=== PATIENT | male | born 1970 | race Caucasian/White ===

== ENCOUNTER 2017-04-26 17:37 | Emergency (ER) | payer MEDICAID ==
[~2017-04-26] VITALS: Ht 182.9 cm; Wt 104.3 kg
[2017-04-26] MEDS ORDERED: NOMEDS XX (17:48)
--- NOTE | 2017-04-26 17:55 | Emergency Room Report ---
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 N Clinical Suspician of Infection? N Mental Status: 1 - Regular (Normal Baseline) Sepsis Risk:Low Sepsis Risk Have you (or family members/close friends) recently traveled outside the [place]? N If Yes, where/when: Have you had exposure to infectious disease within the past month? TB? Other? Specify: 47-year-old white male two months status post hernia repair. He presented with 2 days history of RIGHT sided abdominal pain associated with diarrhea 5-10 times a day. He has nausea but no vomiting. The pain is radiating to the RIGHT upper thigh. He denies fever or chills or vomiting. He denies dysuria hematuria or frequency. The patient had history of chronic pain because of his knees and was being seen in the pain clinic. Source patient, RN notes reviewed, family Exam Limitations no limitations ALLERGIES Coded Allergies: No Known Allergies (04/26/17) Home Medications Reported Medications No Home Medications (NO HOME MEDICATIONS) 1 EACH XX ONCE History Medical History General More? No Immunization Hx Ped.Immunizations UTD Yes DT/Tetanus 1-4 Years Ago Surgical Hx Previous Surgery?Y RIGHT KNEE REPLACEMENT SHOULDER,LEFT HERNIA SURGERY Social History Smoking Hx Smoker: Current Every Day Smoker Tobacco: Yes Type Cigarettes Packs/day < 1 Pack Are you/the child exposed to second-hand smoke: Yes Review of Systems All Other Systems Reviewed and Negative Constitutional no symptoms reported Eyes no symptoms reported ENT no symptoms reported. Respiratory no symptoms reported Cardiovascular no symptoms reported Gastrointestinal denies see HPI Genitourinary no symptoms reported. Musculoskeletal no symptoms reported Skin no symptoms reported Psychiatric/Neurological no symptoms reported Physical Exam Vital Signs Vital Signs Date Time Temp Pulse Resp B/P Pulse O2 O2 Flow FiO2 Ox Delivery Rate 04/26 1852 18 04/26 174 98.9 89 18 / 99 - WBC >12,000 or <4,000 or 10% bands? 2 or more SIRS Criteria Met? B/P: MAP:114 Creatinine >2.0? UA output<0.5ml/kg/hr for 2 hrs? Platelet count >100,000? Lactate >2.0mmol/1? INR >1.2 or PTT > than 60 sec? Evidence of Organ Dysfunction? Provider documented clinical suspician of infection? N Sepsis Criteria Count: 0 Sepsis Risk: Low Sepsis Risk General Appearance normal appearance, WD/WN Eye Exam - bilateral eye normal exam, bilateral eye PERRL, bilateral eye EOMI Ear, Nose, Throat hearing grossly normal, normal ENT inspection Neck normal inspection, non-tender, supple, full range of motion Respiratory Status Yes: trachea midline, chest symmetrical, non tender chest. No: respiratory distress. Lung Sounds bilateral: normal breath sounds, lungs clear. Cardiovascular normal exam, regular rate/rhythm, no peripheral edema, no gallop, no JVD, no murmur, no rub, normal peripheral pulses Peripheral Pulses Pulses normal Yes Gastrointestinal normal bowel sounds, soft, rebound, tenderness, soft abdomen without quadrant tenderness and rebound tenderness positive bowel sounds. 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 No Results/Orders Laboratory Tests 04/26/17 1810: Sodium 141, Potassium 3.5, Chloride 105, Carbon Dioxide 30, BUN 8, Creatinine 1.0, Estimated Creat Clear 135, Estimated GFR (MDRD) 80, Glucose 84, Calcium 9.1 , Total Bilirubin 0.6, AST 8 L, ALT 17, Alkaline Phosphatase 69, Total Protein 7.2, Albumin 4.2, Globulin 3.0, Albumin/Globulin Ratio 1.4, Lipase 117, WBC 9.4, RBC 5.25, Hgb 17.1, Hct 50.3, MCV 96.0, RDW 12.8, Plt Count 212, MPV 9.6, Gran % 69.3, Gran # 6.5, Lymphocytes % 21.5, Monocytes % 5.6, Eosinophils % 2.9, Basophils % 0.7, Lymphocytes # 2.0, Monocytes # 0.5, Eosinophils # 0.3, Basophils # 0.1, PUBS MCHC 34.0, MCH 32.6 H Current Medication Orders Sig/Xuan Start time Last Medication Dose Route Stop Time Status Admin Dicyclomine HCl 10 MG ONCE ONE 04/26 1945 DC 04/26 PO 04/26 Dicyclomine HCl 0 .STK-MED ONE 04/26 1943 DC PO Sodium Chloride 1,000 ML .STK-MED ONE 04/26 1931 DC IV Morphine Sulfate 0 .STK-MED ONE 04/26 1929 DC .ROUTE Levofloxacin/Dextrose 100 ML .STK-MED ONE 04/26 1928 DC IV Levofloxacin/Dextrose 100 ML ONCE ONE 04/26 1915 CKDr 04/26 IV 04/26 Morphine Sulfate 2 MG [id number] PRN 04/26 1915 AC IV Iopamidol 75 ML ONCE ONE 04/26 1900 UNV 04/26 IV 04/26 1901 184 Sodium Chloride 10 ML ONCE ONE 04/26 1900 UNV 04/26 IV 04/26 190 184 Famotidine 0 .STK-MED ONE 04/26 1848 DC IV Ketorolac 0 .STK-MED ONE 04/26 1846 DC Tromethamine .ROUTE Ertapenem 0 .STK-MED ONE 04/26 1842 DC .ROUTE Sodium Chloride 100 ML .STK-MED ONE 04/26 1842 DC IV Ertapenem 1 GM ONCE ONE 04/26 1800 DC 04/26 Sodium Chloride 50 ML IV 04/26 182 185 Famotidine 20 MG ONCE ONE 04/26 1800 DC 04/26 IV 04/26 180 185 Ketorolac 30 MG ONCE ONE 04/26 1800 DC 04/26 Tromethamine IV 04/26 180 1852 Sodium Chloride 1,000 ML .Q1H1M 04/26 1800 DC 04/26 IV 04/26 190 193 Sodium Chloride 10 ML PRN PRN 04/26 1800 AC IV 04/27 175 Sodium Chloride 8 ML ONCE ONE 04/26 1800 DC 04/26 IV 04/26 180 193 Orders Procedure Date/time Status DIET-NOTHING BY MOUTH 04/[address] ABD W/RLQ PAIN REQ 04/26 1751 Active CULTURE, BLOOD 04/26 1750 Active LIPASE 04/26 1750 Complete LACTIC ACID 04/26 1750 Active DIARRHEA PANEL, PCR 04/26 1750 Active CBC WITH AUTO DIFF 04/26 1750 Complete CHEM 12 PROFILE 04/26 1750 Complete Departure Departure Time of Disposition 1752 Disposition DC Home or Self Care(routine) Clinical Impression Primary Impression: Diarrhea Secondary Impressions: Abdominal pain of unknown etiology, Ventral hernia without obstruction or gangrene Condition STABLE Referrals ELMA FINE,BRANDON Terrell Additional Instructions The patient remianed stable , and daughter on the bed side playing games or watching shows , seems very dissociated from him. I discussed with the patient his normal lab results, also CT scan shows ventral hernia with no obstruction or gangrene. He has no acute appendicitis. He said that the Toradol did not help his pain and did not provide a stool sample, he will be given a container to obtain a sample and bring it back to the lab. I called the surgeon dr Pablo who will pass his name to Dr Conte for a recehc in AM. The patient receiving IV fluids and tolerared po inatke, will ask incoming Dr Uriostegui to re evaluate prior to discharge. Dr. Villalobos I discussed with the patietn that I will start him on abx and bentyl for the cramps and he will return if he worsen or vomiting developes. Him and his verbalized understanding. Dr. Villalobos Discharge Counseling Counseled pt/family regarding diagnosis, test results, medications/RX Prescriptions Current Visit Scripts Metronidazole (Flagyl) 500 MG PO Q8 #21 TAB Ciprofloxacin HCl (Cipro 500MG TAB) 500 MG PO BID #14 TAB Dicyclomine Hcl (Bentyl 10MG) 10 MG PO Q8HP PRN cramps #21 CAP ED Critical Care Critical Care No If Critical Care minutes are documented, the time involved in the performance of seperately reportable procedures was not counted toward critical care time documented. I directly delivered medical care to this critically ill and/or injured patient. Timely evaluation and treatment was necessary to address the significant organ system(s) dysfunction present in this patient.
[2017-04-26 18:21] LABS: HEMOGLOBIN 17.1 g/dL (14.1-18.0); LYMPH % 21.5 % (10-50)
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
[2017-04-26] MEDS ORDERED: FLAGYL500 M1 PO (19:11)
[2017-04-26] MEDS ORDERED: BENTYL10 MG PO (19:11)
[2017-04-26] MEDS ORDERED: CIPRO 500MG TA500 MG PO (19:11)
[2017-04-26 20:43] VITALS: BP 141/97
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
--- OUTSIDE RECORDS SUMMARY | 2017-05-01 21:39 | External Medical Summary Rpt ---
Author Author [facility] Address Unknown Phone Unavailable Care Team Providers Care Director Global Strategic Publisher Sales Name Role Phone Nahomy WAITE PCP [phone] Encounter [facility] [id number] Date(s): 12/30/16 - 12/30/16 [facility] [address] [id number]- [facility] Discharge Diagnosis: Cough Discharge Diagnosis: Abdominal pain Discharge Diagnosis: Abdominal wall hernia Discharge Diagnosis: Wheezing Discharge Disposition: OP Self Care or Home Attending Physician: BONNIE CARBONE MD-EMR Admitting Physician: BONNIE CARBONE MD-EMR Referring Physician: ZELDA, UNKNOWN Reason for Visit COUGH\STOMACH PAIN Vital Signs Most recent 1 2 3 to oldest [Reference Range]: Temperature Oral Source (12/30/16 5:33 PM) Temperature Fahrenheit Fahrenheit Mode (12/30/16 6:58 PM) (12/30/16 5:33 PM) Temperature, 98.7 Deg F Fahrenheit (12/30/16 5:33 PM) [96.8-99.7 Deg F] Clinical 37.1 Deg C Temperature, (12/30/16 5:33 PM) C Peripheral 79 bpm 83 bpm 116 bpm Pulse Rate (12/30/16 8:40 PM) (12/30/16 6:58 PM) *HI* [60-100 bpm] (12/30/16 5:33 PM) Heart Rate 78 bpm Monitored (12/30/16 8:24 PM) [60-100 bpm] Respiratory 16 Breaths/Min 20 Breaths/Min Rate [14-20 (12/30/16 6:58 PM) (12/30/16 5:33 PM) Breaths/Min] Blood 129/96 mmHg 154/95 mmHg 138/97 mmHg Pressure (12/30/16 8:40 PM) *HI* (12/30/16 6:58 PM) [90-140/60-9 (12/30/16 8:24 PM) 0 mmHg] Oxygen 94 % 94 % 98 % Saturation (12/30/16 8:40 PM) (12/30/16 8:24 PM) (12/30/16 6:58 PM) [94-100 %] Oxygen Room air Room air Room air Therapy Mode (12/30/16 8:24 PM) (12/30/16 6:58 PM) (12/30/16 5:33 PM) Height Stated Source (12/30/16 5:33 PM) Height Entry [place] Format (12/30/16 5:33 PM) Height/Lengt 6 ft h, CRO[place] (12/30/16 5:33 PM) (ft) Height/Lengt 0 Inch h [place] (12/30/16 5:33 PM) CLINICALHEIG 182.88 cm HT (12/30/16 5:33 PM) Weight Estimated Source, ED (12/30/16 5:33 PM) [place] Body 77 kg Weight (12/30/16 5:33 PM) Problem List Condition Effective Status Health Informant Dates Status HTN Active (hypertensio n)(Confirmed ) Hernia of Active abdominal cavity(Confi rmed) Depression(C Active onfirmed) Allergies, Adverse Reactions, Alerts No Known Medication Allergies Medications acetaminophen-hydrocodone ([place] 5 mg-325 mg oral tablet)1 Tab, Oral, Every 4 Hours, 3 Day(s), As Needed, for pain, Refills: 0Ordering provider: GUSTAVO ARELLANO NP-FAM benazepril-hydrochlorothiazide (benazepril-hydrochlorothiazide 20 mg-25 mg oral tablet)1 Tab, Oral, Every Day, Refills: 0 levofloxacin (Levaquin 750 mg oral tablet)1 Tab, Oral, Interval Every 24 Hours, 7 Day(s), Refills: 0Ordering provider: GUSTAVO ARELLANO NP-FAM methylPREDNISolone (Medrol Dosepak 4 mg oral tablet)1 Packet, Oral, Every Day, as directed on package labeling, 6 Day(s), Refills: 0Ordering provider: GUSTAVO ARELLANO NP-FAM Results GENERAL CHEMISTRY Most recent 1 to oldest [Reference Range]: Sodium Level 137 mmol/L [136-144 (12/30/16 5:58 PM) mmol/L] Potassium 2.8 mmol/L 1 Level *CRIT* [3.7-5.0 (12/30/16 5:58 PM) mmol/L] Chloride 96 mmol/L Level *LOW* [98-107 (12/30/16 5:58 PM) mmol/L] Carbon 29.0 mMole/Liter Dioxide (12/30/16 5:58 PM) Level [24.0-33.0 mMole/Liter] Anion Gap 12.0 [2.0-11.0] *HI* (12/30/16 5:58 PM) Glucose 129 mg/dL Level *HI* [70-110 (12/30/16 5:58 PM) mg/dL] Blood Urea 18 mg/dL Nitrogen (12/30/16 5:58 PM) [6-20 mg/dL] Creatinine 1.10 mg/dL Level (12/30/16 5:58 PM) [0.64-1.27 mg/dL] eGFR 87 mL/min/1.73m2 [>=60 (12/30/16 5:58 PM) mL/min/1.73m 2] eGFR 72 mL/min/1.73m2 NonAfrican (12/30/16 5:58 PM) [>=60 mL/min/1.73m 2] Bun/Creatini 16 ne *NA* (12/30/16 5:58 PM) Calcium 9.3 mg/dL Level (12/30/16 5:58 PM) [8.9-10.3 mg/dL] Protein 7.8 Gram/dL Total *HI* [5.9-7.5 (12/30/16 5:58 PM) Gram/dL] Albumin 5.0 Gram/dL Level *HI* [3.6-4.7 (12/30/16 5:58 PM) Gram/dL] A/G Ratio 1.8 [1.0-1.8] (12/30/16 5:58 PM) Bilirubin 1.2 mg/dL Total (12/30/16 5:58 PM) [0.4-1.3 mg/dL] Alk Phos 78 Units/Liter [34-106 (12/30/16 5:58 PM) Units/Liter] AST [12-38 26 Units/Liter Units/Liter] (12/30/16 5:58 PM) ALT [8-60 22 Units/Liter Units/Liter] (12/30/16 5:58 PM) Lipase Level 16 Units/Liter [10-50 (12/30/16 5:58 PM) Units/Liter] Lactic Acid 2.4 mmol/L Level *HI* [0.5-2.2 (12/30/16 5:58 PM) mmol/L] 1Result Comment: CALLED TO:lashanda kraus DATE/TIME CALLED:12/30/2016 18:44:04 EDT READ BACK AND VERIFIED:yes CALLED BY: PhanARDIAC SPECIFIC MARKERS Most recent 1 to oldest [Reference Range]: Troponin I 0.01 ng/mL [0.00-0.03 (12/30/16 6:10 PM) ng/mL] HEMATOLOGY Most recent 1 to oldest [Reference Range]: WBC 11.6 10x3/mm3 [4.1-10.8 *HI* 10x3/mm3] (12/30/16 5:58 PM) RBC 5.45 Million/mm3 [4.37-5.74 (12/30/16 5:58 PM) Million/mm3] Hgb 18.2 Gram/dL 1 [13.7-17.5 *CRIT* Gram/dL] (12/30/16 5:58 PM) Hct 51.1 % [40.1-51.0 *HI* %] (12/30/16 5:58 PM) MCV 93.6 fL [79.0-92.2 *HI* fL] (12/30/16 5:58 PM) MCH 33.3 pg [25.6-32.2 *HI* pg] (12/30/16 5:58 PM) MCHC 35.6 Gram/dL [32.3-36.5 (12/30/16 5:58 PM) Gram/dL] Platelet 197 10x3/mm3 Count (12/30/16 5:58 PM) [140-370 10x3/mm3] MPV 10.6 fL [8.7-12.0 (12/30/16 5:58 PM) fL] RDW 13.5 % [11.7-15.2 (12/30/16 5:58 PM) %] 1Result Comment: CALLED TO:lashanda kraus DATE/TIME CALLED:12/30/2016 18:42:27 EDT READ BACK AND VERIFIED:yes CALLED BY: Dodie Most recent 1 to oldest [Reference Range]: Urine Type. U CleanCatch *NA* (12/30/16 5:58 PM) Urine Color Yellow *NA* (12/30/16 5:58 PM) Urine Clear Appearance (12/30/16 5:58 PM) [Clear] Urine 1.020 Specific *NA* [place] (12/30/16 5:58 PM) [1.003-1.030 ] Urine pH 6.0 Dipstick (12/30/16 5:58 PM) [5.0-8.0] Urine Negative Leukocyte (12/30/16 5:58 PM) Esterase [Negative] Urine Negative Nitrite (12/30/16 5:58 PM) [Negative] Urine Negative Protein (12/30/16 5:58 PM) Dipstick [Negative] Urine Negative Glucose (12/30/16 5:58 PM) Dipstick [Negative] Urine Negative Ketones (12/30/16 5:58 PM) Dipstick [Negative] Urine 0.2 EU/dL Urobilinogen (12/30/16 5:58 PM) Dipstick [0.1-1.0 EU/dL] Urine Negative Bilirubin (12/30/16 5:58 PM) Dipstick [Negative] Urine Blood Negative Dipstick (12/30/16 5:58 PM) [Negative] Ur RBC None /HPF (12/30/16 5:58 PM) Ur WBC None /HPF (12/30/16 5:58 PM) Ur Bacteria None Seen (12/30/16 5:58 PM) Ur None Epithelial (12/30/16 5:58 PM) Cells TOXICOLOGY Most recent 1 to oldest [Reference Range]: UDS Amp Negative [Negative] (12/30/16 5:58 PM) UDS Kim Negative [Negative] (12/30/16 5:58 PM) UDS Benzo Negative [Negative] (12/30/16 5:58 PM) UDS Christel Negative [Negative] (12/30/16 5:58 PM) UDS Meth Negative [Negative] (12/30/16 5:58 PM) UDS Opi Positive [Negative] *ABN* (12/30/16 5:58 PM) UDS TCA Negative [Negative] (12/30/16 5:58 PM) UDS THC Negative [Negative] (12/30/16 5:58 PM) Immunizations No data available for this section Procedures No data available for this section Social History Social History Response Type Smoking Status Current every day smoker; Years of Tobacco Use 34; Packs/Tins Daily 0.5 Assessment and Plan No data available for this section Hospital Discharge Instructions Patient EducationAbdominal Pain, Adult
--- OUTSIDE RECORDS SUMMARY | 2017-05-01 21:39 | External Medical Summary Rpt ---
Author Author [facility] Address Unknown Phone Unavailable Care Team Providers Care Buffer Chrome Name Role Phone Nahomy WAITE PCP [phone] Encounter [facility] [id number] Date(s): 12/30/16 - 12/30/16 [facility] [address] [id number]- [facility] Discharge Diagnosis: Cough Discharge Diagnosis: Abdominal [...] Stated Source (12/30/16 5:33 PM) Height Entry [place] Format (12/30/16 5:33 PM) Height/Lengt 6 ft h, GUAMANIAN (12/30/16 5:33 PM) (ft) Height/Lengt 0 Inch h GUAMANIAN (12/30/16 5:33 PM) CLINICALHEIG 182.88 cm HT (12/30/16 5:33 PM) Weight Estimated Source, ED (12/30/16 5:33 PM) [place] Body 77 kg Weight (12/30/16 5:33 PM) Problem List Condition Effective Status Health Informant Dates Status HTN Active (hypertensio n)(Confirmed ) Hernia of Active abdominal cavity(Confi rmed) Depression(C Active onfirmed) Allergies, Adverse Reactions, Alerts No Known Medication Allergies Medications acetaminophen-hydrocodone ([place] 5 mg-325 mg oral tablet)1 Tab, Oral, [...] 5:58 PM) [Clear] Urine 1.020 Specific *NA* [place] (12/30/16 5:58 PM) [1.003-1.030 ] Urine pH [...]
--- OUTSIDE RECORDS SUMMARY | 2017-05-01 21:39 | External Medical Summary Rpt ---
Author Author [facility] Address Unknown Phone Unavailable Care Team Providers Care Biofuels Product Manager Name Role Phone Nahomy WAITE PCP [phone] Encounter [facility] [id number] Date(s): 08/27/16 - 08/27/16 [facility] [address], [address]- Discharge Disposition: OP Self Care or Home Attending Physician: CHANNING WAITE -INT Admitting Physician: CHANNING WAITE -INT Referring Physician: CHANNING WAITE -INT Reason for Visit VENTRAL HERNIA WITHOUT OBSTRUCTION OR GANGRENE Vital Signs No data available for this section Problem List No data available for this section Allergies, Adverse Reactions, Alerts No data available for this section Medications No data available for this section Results No data available for this section Immunizations No data available for this section Procedures No data available for this section Social History No data available for this section Assessment and Plan No data available for this section Hospital Discharge Instructions No data available for this section
--- OUTSIDE RECORDS SUMMARY | 2017-05-01 21:39 | External Medical Summary Rpt ---
Author Author [facility] Address Unknown Phone Unavailable Care Team Providers Care Client Architect Name Role Phone Nahomy WAITE PCP [phone] Encounter [facility] [id number] Date(s): 10/06/16 - 10/07/16 [facility] [address] [place] [address]- [facility] Discharge Disposition: Admitted to Hospital 72HRS Attending [...] Stated Source (10/06/16 7:15 PM) Height Entry [place] Format (10/06/16 7:15 PM) Height/Lengt 6 ft h, [place] (10/06/16 7:15 PM) (ft) Height/Lengt 0 Inch h [place] (10/06/16 7:15 PM) CLINICALHEIG 182.88 cm HT (10/06/16 7:15 PM) Weight Standing scale Source, ED (10/06/16 7:15 PM) Weight Entry [place] Format (10/06/16 7:15 PM) Weight 225 lb [place] lb (10/06/16 7:15 PM) CLINICALWEIG 102.27 kg HT (10/06/16 7:15 PM) Body Surface 2.24 m2 Area (BSA) (10/06/16 7:15 PM) Body Mass 30.6 kg/m2 Index (BMI) *HI* [19.0-24.0 (10/06/16 7:15 PM) kg/m2] [place] Body 77 kg Weight (10/06/16 7:15 PM) [...] 7:35 PM) [Clear] Urine >=1.030 Specific *NA* [place] (10/06/16 7:35 PM) [1.003-1.030 ] Urine pH [...] wound Inguinal hernia1 knee surgery2 Shoulder reconstruction3 [id number] on right, X4 on [id number] Social History Social History Response Type Smoking Status Current every day smoker Assessment and Plan No data available for this section Hospital Discharge Instructions No data available for this section
--- OUTSIDE RECORDS SUMMARY | 2017-05-01 21:39 | External Medical Summary Rpt ---
Author Author [facility] Address Unknown Phone Unavailable Care Team Providers Care Brass Pourer Name Role Phone Nahomy WAITE PCP [phone] Encounter [facility] [id number] Date(s): 08/27/16 - 08/27/16 [facility] [address] [facility], [address]- Discharge Disposition: OP Self Care or Home [...]
--- OUTSIDE RECORDS SUMMARY | 2017-05-01 21:40 | External Medical Summary Rpt ---
Author Author [facility] Address Unknown Phone Unavailable Care Team Providers Care Psychiatric Clinician Name Role Phone Nahomy WAITE PCP [phone] Encounter [facility] [id number] Date(s): 01/18/17 - 01/18/17 [facility] [address] [place] [address]- [facility] Discharge Diagnosis: Chest pain Discharge Disposition: Admitted to Hospital 72HRS Attending Physician: CJ VELIZ, -EMR Admitting Physician: CJ VELIZ, -EMR Referring Physician: STEPHANIE NDIAYE Reason for Visit CHEST/BACK/SHOULDER PAIN Vital Signs Most recent 1 2 3 to oldest [Reference Range]: Temperature Tympanic Source (01/18/17 11:47 AM) Temperature Fahrenheit Mode (01/18/17 11:47 AM) Temperature, 98.3 Deg F Fahrenheit (01/18/17 11:47 AM) [96.8-99.7 Deg F] Clinical 36.8 Deg C Temperature, (01/18/17 11:47 AM) C Peripheral 68 bpm 115 bpm Pulse Rate (01/18/17 5:13 PM) *HI* [60-100 bpm] (01/18/17 11:47 AM) Heart Rate 69 bpm 69 bpm 70 bpm Monitored (01/18/17 4:21 PM) (01/18/17 3:52 PM) (01/18/17 3:05 PM) [60-100 bpm] Respiratory 16 Breaths/Min 16 Breaths/Min 18 Breaths/Min Rate [14-20 (01/18/17 5:13 PM) (01/18/17 1:25 PM) (01/18/17 12:33 PM) Breaths/Min] Blood 123/88 mmHg 122/78 mmHg 126/86 mmHg Pressure (01/18/17 5:13 PM) (01/18/17 4:21 PM) (01/18/17 3:52 PM) [90-140/60-9 0 mmHg] Mean 93 mmHg 99 mmHg 94 mmHg Arterial (01/18/17 4:21 PM) (01/18/17 3:52 PM) (01/18/17 3:05 PM) Pressure (MAP) Mean 90 96 89 Arterial (01/18/17 4:21 PM) (01/18/17 3:52 PM) (01/18/17 3:05 PM) Pressure (MAP)-BMDI Oxygen 100 % 99 % 99 % Saturation (01/18/17 5:13 PM) (01/18/17 4:21 PM) (01/18/17 3:52 PM) [94-100 %] Oxygen Nasal cannula Nasal cannula Nasal cannula Therapy Mode (01/18/17 5:13 PM) (01/18/17 4:21 PM) (01/18/17 3:52 PM) Oxygen Flow 2 Liter/Min 2 Liter/Min 2 Liter/Min Rate (01/18/17 5:13 PM) (01/18/17 4:21 PM) (01/18/17 3:52 PM) Height Stated Source (01/18/17 11:47 AM) Height Entry [place] Format (01/18/17 11:47 AM) Height/Lengt 6 ft h, [place] (01/18/17 11:47 AM) (ft) Height/Lengt 0 Inch h [place] (01/18/17 11:47 AM) CLINICALHEIG 182.88 cm HT (01/18/17 11:47 AM) Weight Estimated Source, ED (01/18/17 11:47 AM) [place] Body 77 kg Weight (01/18/17 11:47 AM) Problem List Condition Effective Status Health Informant Dates Status HTN Active (hypertensio n)(Confirmed ) Hernia of Active abdominal cavity(Confi rmed) Depression(C Active onfirmed) Allergies, Adverse Reactions, Alerts No Known Medication Allergies Medications benazepril-hydroCHLOROthiazide (benazepril-hydrochlorothiazide 20 mg-25 mg oral tablet)1 Tab, Oral, Every Day, Refills: 0 benazepril-hydroCHLOROthiazide (benazepril-hydroCHLOROthiazide 20 mg-25 mg oral tablet)1 Tab, Oral, Every Day, Refills: 0 Results GENERAL CHEMISTRY Most recent 1 2 to oldest [Reference Range]: Sodium Level 141 mmol/L [136-144 (01/18/17 11:49 AM) mmol/L] Potassium 3.5 mmol/L Level *LOW* [3.7-5.0 (01/18/17 11:49 AM) mmol/L] Chloride 102 mmol/L Level (01/18/17 11:49 AM) [98-107 mmol/L] Carbon 29.0 mMole/Liter Dioxide (01/18/17 11:49 AM) Level [24.0-33.0 mMole/Liter] Anion Gap 10.0 [2.0-11.0] (01/18/17 11:49 AM) Glucose 131 mg/dL Level *HI* [70-110 (01/18/17 11:49 AM) mg/dL] Blood Urea 13 mg/dL Nitrogen (01/18/17 11:49 AM) [6-20 mg/dL] Creatinine 1.06 mg/dL Level (01/18/17 11:49 AM) [0.64-1.27 mg/dL] eGFR 91 mL/min/1.73m2 [>=60 (01/18/17 11:49 AM) mL/min/1.73m 2] eGFR 75 mL/min/1.73m2 NonAfrican (01/18/17 11:49 AM) [>=60 mL/min/1.73m 2] Bun/Creatini 12 ne *NA* (01/18/17 11:49 AM) Calcium 9.1 mg/dL Level (01/18/17 11:49 AM) [8.9-10.3 mg/dL] Protein 7.4 Gram/dL Total (01/18/17 11:49 AM) [5.9-7.5 Gram/dL] Albumin 4.6 Gram/dL Level (01/18/17 11:49 AM) [3.6-4.7 Gram/dL] A/G Ratio 1.6 [1.0-1.8] (01/18/17 11:49 AM) Bilirubin 1.0 mg/dL Total (01/18/17 11:49 AM) [0.4-1.3 mg/dL] Alk Phos 71 Units/Liter [34-106 (01/18/17 11:49 AM) Units/Liter] AST [12-38 21 Units/Liter Units/Liter] (01/18/17 11:49 AM) ALT [8-60 26 Units/Liter Units/Liter] (01/18/17 11:49 AM) CARDIAC SPECIFIC MARKERS Most recent 1 2 to oldest [Reference Range]: Troponin I <0.01 ng/mL <0.01 ng/mL [0.00-0.03 (01/18/17 1:45 PM) (01/18/17 11:49 AM) ng/mL] BNP [0-99 64 pg/mL pg/mL] (01/18/17 11:49 AM) HEMATOLOGY Most recent 1 2 to oldest [Reference Range]: WBC 9.4 10x3/mm3 [4.1-10.8 (01/18/17 11:49 AM) 10x3/mm3] RBC 5.45 Million/mm3 [4.37-5.74 (01/18/17 11:49 AM) Million/mm3] Hgb 17.7 Gram/dL [13.7-17.5 *HI* Gram/dL] (01/18/17 11:49 AM) Hct 50.6 % [40.1-51.0 (01/18/17 11:49 AM) %] MCV 92.8 fL [79.0-92.2 *HI* fL] (01/18/17 11:49 AM) MCH 32.5 pg [25.6-32.2 *HI* pg] (01/18/17 11:49 AM) MCHC 35.0 Gram/dL [32.3-36.5 (01/18/17 11:49 AM) Gram/dL] Platelet 208 10x3/mm3 Count (01/18/17 11:49 AM) [140-370 10x3/mm3] MPV 9.9 fL [8.7-12.0 (01/18/17 11:49 AM) fL] RDW 13.5 % [11.7-15.2 (01/18/17 11:49 AM) %] Neut % 65.6 % [34.0-69.5 (01/18/17 11:49 AM) %] Neut # 6.20 x10(3)/uL [1.70-6.00 *HI* x10(3)/uL] (01/18/17 11:49 AM) Lymph % 23.7 % [20.0-53.0 (01/18/17 11:49 AM) %] Lymph # 2.2 x10(3)/uL [0.8-3.2 (01/18/17 11:49 AM) x10(3)/uL] [place] % 7.7 % [5.0-12.5 %] (01/18/17 11:49 AM) [place] # 0.7 x10(3)/uL [0.2-1.4 (01/18/17 11:49 AM) x10(3)/uL] Eos % 1.9 % [0.7-6.0 %] (01/18/17 11:49 AM) Eos # 0.2 x10(3)/uL [0.0-0.6 (01/18/17 11:49 AM) x10(3)/uL] Baso % 1.1 % [0.0-3.0 %] (01/18/17 11:49 AM) Baso # 0.1 x10(3)/uL [0.0-0.3 (01/18/17 11:49 AM) x10(3)/uL] COAGULATION Most recent 1 2 to oldest [Reference Range]: PT [9.4-12.2 11.0 Second(s) Second(s)] (01/18/17 11:49 AM) INR 0.96 INR *NA* (01/18/17 11:49 AM) PTT 30.1 Second(s) [23.1-34.6 (01/18/17 11:49 AM) Second(s)] D Dimer 211 ng/mL Quant (01/18/17 11:49 AM) [21-230 ng/mL] Immunizations No data available for this section Procedures No data available for this section Social History Social History Response Type Smoking Status Current every day smoker; Years of Tobacco Use 34; Packs/Tins Daily 0.5 Assessment and Plan No data available for this section Hospital Discharge Instructions No data available for this section
--- OUTSIDE RECORDS SUMMARY | 2017-05-01 21:40 | External Medical Summary Rpt ---
Author Author [facility] Address Unknown Phone Unavailable Care Team Providers Care Elastic Yarn Twister Helper Name Role Phone Nahomy WAITE PCP [phone] Encounter [facility] [id number] Date(s): 01/18/17 - 01/18/17 [facility] [address] [place] [address]- [facility] Discharge Diagnosis: Chest [...] Stated Source (01/18/17 11:47 AM) Height Entry [place] Format (01/18/17 11:47 AM) Height/Lengt 6 ft h, [place] (01/18/17 11:47 AM) (ft) Height/Lengt 0 Inch h [place] (01/18/17 11:47 AM) CLINICALHEIG 182.88 cm HT (01/18/17 11:47 AM) Weight Estimated Source, ED (01/18/17 11:47 AM) [place] Body 77 kg Weight (01/18/17 11:47 AM) [...] 2.2 x10(3)/uL [0.8-3.2 (01/18/17 11:49 AM) x10(3)/uL] [place] % 7.7 % [5.0-12.5 %] (01/18/17 11:49 AM) [place] # 0.7 x10(3)/uL [0.2-1.4 (01/18/17 11:49 AM) [...]
--- OUTSIDE RECORDS SUMMARY | 2017-05-01 21:40 | External Medical Summary Rpt ---
Author Author [facility] Address Unknown Phone Unavailable Care Team Providers Care Road Machine Runner Name Role Phone Nahomy WAITE PCP [phone] Encounter [facility] [id number] Date(s): 03/03/17 - 03/04/17 [facility] [address] [place] [address]- [facility] Discharge Diagnosis: Abdominal pain Discharge Disposition: Admitted to Hospital 72HRS Attending Physician: BONNIE CARBONE MD-EMR Admitting Physician: DAMARI HUMPHREY, -EMR Referring Physician: ZELDA, UNKNOWN Reason for Visit CHEST PAIN HIGH BLOOD PRESSURE Vital Signs Most recent 1 2 3 to oldest [Reference Range]: Temperature Tympanic Source (03/03/17 5:16 PM) Temperature Fahrenheit Mode (03/03/17 5:16 PM) Temperature, 98 Deg F Fahrenheit (03/03/17 5:16 PM) [96.8-99.7 Deg F] Clinical 36.7 Deg C Temperature, (03/03/17 5:16 PM) C Peripheral 94 bpm Pulse Rate (03/03/17 5:16 PM) [60-100 bpm] Heart Rate 76 bpm (03/04/17 65 bpm (03/03/17 70 bpm (03/03/17 Monitored 12:16 AM) 11:41 PM) 11:13 PM) [60-100 bpm] Respiratory 15 Breaths/Min 19 Breaths/Min 16 Breaths/Min Rate [14-20 (03/03/17 8:52 PM) (03/03/17 7:53 PM) (03/03/17 5:34 PM) Breaths/Min] Blood 124/86 mmHg 134/87 mmHg 141/93 mmHg Pressure (03/04/17 12:16 (03/03/17 11:41 *HI*(03/03/17 [90-140/60-9 AM) PM) 11:13 PM) 0 mmHg] Mean 99 mmHg (03/04/17 103 mmHg (03/03/17 109 mmHg (03/03/17 Arterial 12:16 AM) 11:41 PM) 11:13 PM) Pressure (MAP) Mean 96 (03/04/17 12:16 98 (03/03/17 11:41 106 (03/03/17 Arterial AM) PM) 11:13 PM) Pressure (MAP)-BMDI Oxygen 100 % (03/04/17 100 % (03/03/17 100 % (03/03/17 Saturation 12:16 AM) 11:13 PM) 10:02 PM) [94-100 %] Oxygen Room air (03/04/17 Room air (03/03/17 Room air (03/03/17 Therapy Mode 12:16 AM) 11:13 PM) 10:02 PM) Oxygen Flow 2 Liter/Min Rate (03/03/17 6:08 PM) Height Stated Source (03/03/17 5:16 PM) Height Entry [place] Format (03/03/17 5:16 PM) Height/Lengt 6 ft h, [place] (03/03/17 5:16 PM) (ft) CLINICALHEIG 182.88 cm HT (03/03/17 5:16 PM) Weight Stated Source, ED (03/03/17 5:16 PM) [place] Body 76.59 kg Weight (03/03/17 5:16 PM) Problem List Condition Effective Status Health Informant Dates Status Arthritis(Co Active patient nfirmed) HTN Active (hypertensio n)(Confirmed ) Hernia of Active abdominal cavity(Confi rmed) Migraine(Con Active firmed) Depression(C Active onfirmed) Allergies, Adverse Reactions, Alerts No Known Medication Allergies Medications benazepril-hydroCHLOROthiazide (benazepril-hydroCHLOROthiazide 20 mg-25 mg oral tablet)1 Tab, Oral, Every Day, Refills: 0 Results GENERAL CHEMISTRY Most recent 1 2 to oldest [Reference Range]: Sodium Level 137 mmol/L [136-144 (03/03/17 5:34 PM) mmol/L] Potassium 4.1 mmol/L Level (03/03/17 5:34 PM) [3.7-5.0 mmol/L] Chloride 101 mmol/L Level (03/03/17 5:34 PM) [98-107 mmol/L] Carbon 26.0 mMole/Liter Dioxide (03/03/17 5:34 PM) Level [24.0-33.0 mMole/Liter] Anion Gap 10.0 [2.0-11.0] (03/03/17 5:34 PM) Glucose 89 mg/dL Level (03/03/17 5:34 PM) [70-110 mg/dL] Blood Urea 14 mg/dL Nitrogen (03/03/17 5:34 PM) [6-20 mg/dL] Creatinine 0.97 mg/dL Level (03/03/17 5:34 PM) [0.64-1.27 mg/dL] eGFR 101 mL/min/1.73m2 [>=60 (03/03/17 5:34 PM) mL/min/1.73m 2] eGFR 83 mL/min/1.73m2 NonAfrican (03/03/17 5:34 PM) [>=60 mL/min/1.73m 2] Bun/Creatini 14 ne *NA* (03/03/17 5:34 PM) Calcium 9.0 mg/dL Level (03/03/17 5:34 PM) [8.9-10.3 mg/dL] Protein 7.6 Gram/dL Total *HI* [5.9-7.5 (03/03/17 5:34 PM) Gram/dL] Albumin 4.3 Gram/dL Level (03/03/17 5:34 PM) [3.6-4.7 Gram/dL] A/G Ratio 1.3 [1.0-1.8] (03/03/17 5:34 PM) Bilirubin 0.7 mg/dL Total (03/03/17 5:34 PM) [0.4-1.3 mg/dL] Alk Phos 61 Units/Liter [34-106 (03/03/17 5:34 PM) Units/Liter] AST [12-38 27 Units/Liter Units/Liter] (03/03/17 5:34 PM) ALT [8-60 44 Units/Liter Units/Liter] (03/03/17 5:34 PM) Magnesium 1.78 mEq/Liter Level (03/03/17 5:34 PM) [1.40-1.90 mEq/Liter] Lipase Level 21 Units/Liter [10-50 (03/03/17 5:34 PM) Units/Liter] Lactic Acid 0.6 mmol/L Level (03/03/17 5:34 PM) [0.5-2.2 mmol/L] CARDIAC SPECIFIC MARKERS Most recent 1 2 to oldest [Reference Range]: Troponin I <0.01 ng/mL 0.01 ng/mL [0.00-0.03 (03/03/17 8:30 PM) (03/03/17 5:34 PM) ng/mL] CRP High 4.62 mg/dL Sensitive *HI* [0.00-0.40 (03/03/17 8:30 PM) mg/dL] BNP [0-99 8 pg/mL pg/mL] (03/03/17 5:34 PM) HEMATOLOGY Most recent 2 to oldest [Reference Range]: WBC 12.7 10x3/mm3 [4.1-10.8 *HI* 10x3/mm3] (03/03/17 5:34 PM) RBC 5.15 Million/mm3 [4.37-5.74 (03/03/17 5:34 PM) Million/mm3] Hgb 16.9 Gram/dL [13.7-17.5 (03/03/17 5:34 PM) Gram/dL] Hct 49.2 % [40.1-51.0 (03/03/17 5:34 PM) %] MCV 95.6 fL [79.0-92.2 *HI* fL] (03/03/17 5:34 PM) MCH 32.9 pg [25.6-32.2 *HI* pg] (03/03/17 5:34 PM) MCHC 34.4 Gram/dL [32.3-36.5 (03/03/17 5:34 PM) Gram/dL] Platelet 236 10x3/mm3 Count (03/03/17 5:34 PM) [140-370 10x3/mm3] MPV 9.8 fL [8.7-12.0 (03/03/17 5:34 PM) fL] RDW 13.9 % [11.7-15.2 (03/03/17 5:34 PM) %] COAGULATION Most recent 2 to oldest [Reference Range]: PT [9.4-12.2 11.8 Second(s) Second(s)] (03/03/17 5:34 PM) INR 1.04 INR *NA* (03/03/17 5:34 PM) PTT 33.2 Second(s) [23.1-34.6 (03/03/17 5:34 PM) Second(s)] D Dimer 424 ng/mL Quant *HI* [21-230 (03/03/17 7:12 PM) ng/mL] URINALYSIS Most recent 1 2 to oldest [Reference Range]: Urine Type. U CleanCatch *NA* (03/03/17 5:34 PM) Urine Color Yellow *NA* (03/03/17 5:34 PM) Urine Clear Appearance (03/03/17 5:34 PM) [Clear] Urine 1.025 Specific *NA* [place] (03/03/17 5:34 PM) [1.003-1.030 ] Urine pH 6.0 Dipstick (03/03/17 5:34 PM) [5.0-8.0] Urine Negative Leukocyte (03/03/17 5:34 PM) Esterase [Negative] Urine Negative Nitrite (03/03/17 5:34 PM) [Negative] Urine Negative Protein (03/03/17 5:34 PM) Dipstick [Negative] Urine Negative Glucose (03/03/17 5:34 PM) Dipstick [Negative] Urine Negative Ketones (03/03/17 5:34 PM) Dipstick [Negative] Urine 0.2 EU/dL Urobilinogen (03/03/17 5:34 PM) Dipstick [0.1-1.0 EU/dL] Urine Negative Bilirubin (03/03/17 5:34 PM) Dipstick [Negative] Urine Blood Negative Dipstick (03/03/17 5:34 PM) [Negative] Ur RBC None /HPF (03/03/17 5:34 PM) Ur WBC 0-2 /HPF (03/03/17 5:34 PM) Ur Bacteria None Seen (03/03/17 5:34 PM) Ur Mucous Trace /HPF (03/03/17 5:34 PM) Ur Rare Epithelial (03/03/17 5:34 PM) Cells Immunizations No data available for this section Procedures No data available for this section Social History Social History Response Type Smoking Status Current every day smoker; Years of Tobacco Use 34; Packs/Tins Daily 0.5 Assessment and Plan No data available for this section Hospital Discharge Instructions No data available for this section
--- OUTSIDE RECORDS SUMMARY | 2017-05-01 21:40 | External Medical Summary Rpt ---
Author Author [facility] Address Unknown Phone Unavailable Care Team Providers Care Curriculum And Assessment Director Name Role Phone Nahomy WAITE PCP [phone] Encounter [facility] [id number] Date(s): 03/07/17 - 03/07/17 [facility] [address] [place] [address]- [facility] Discharge Diagnosis: Abdominal wall fluid collections Discharge Diagnosis: Abdominal pain Discharge Disposition: Admitted to Hospital 72HRS Attending Physician: MARISABEL ARELLANO, -EMR Admitting Physician: ZELDA, UNKNOWN Referring Physician: ZELDA, UNKNOWN Reason for Visit ABD PAIN Vital Signs Most recent 1 2 3 to oldest [Reference Range]: Temperature Oral (03/07/17 Source 11:10 AM) Temperature Fahrenheit Mode (03/07/17 11:10 AM) Temperature, 98.1 Deg F Fahrenheit (03/07/17 11:10 [96.8-99.7 AM) Deg F] Clinical 36.7 Deg C Temperature, (03/07/17 11:10 C AM) Peripheral 115 bpm Pulse Rate *HI*(03/07/17 [60-100 bpm] 11:10 AM) Heart Rate 69 bpm 72 bpm 71 bpm Monitored (03/07/17 4:25 PM) (03/07/17 3:36 PM) (03/07/17 3:09 PM) [60-100 bpm] Respiratory 20 Breaths/Min Rate [14-20 (03/07/17 11:10 Breaths/Min] AM) Blood 124/81 mmHg 126/86 mmHg 121/85 mmHg Pressure (03/07/17 4:25 PM) (03/07/17 3:36 PM) (03/07/17 3:09 PM) [90-140/60-9 0 mmHg] Mean 95 mmHg 99 mmHg 97 mmHg Arterial (03/07/17 4:25 PM) (03/07/17 3:36 PM) (03/07/17 3:09 PM) Pressure (MAP) Mean 90 96 90 Arterial (03/07/17 4:25 PM) (03/07/17 3:36 PM) (03/07/17 3:09 PM) Pressure (MAP)-BMDI Oxygen 97 % 96 % 98 % Saturation (03/07/17 4:25 PM) (03/07/17 3:36 PM) (03/07/17 3:09 PM) [94-100 %] Oxygen Room air (03/07/17 Therapy Mode 11:10 AM) Height Entry [place] (03/07/17 Format 11:10 AM) Height/Lengt 6 ft (03/07/17 h, [place] 11:10 AM) (ft) Height/Lengt 0 Inch (03/07/17 h [place] 11:10 AM) CLINICALHEIG 182.88 cm HT (03/07/17 11:10 AM) Weight Estimated Source, ED (03/07/17 11:10 AM) [place] Body 76.59 kg (03/07/17 Weight 11:10 AM) Problem List Condition Effective Status Health Informant Dates Status Arthritis(Co Active patient nfirmed) HTN Active (hypertensio n)(Confirmed ) Hernia of Active abdominal cavity(Confi rmed) Migraine(Con Active firmed) Depression(C Active onfirmed) Allergies, Adverse Reactions, Alerts No Known Medication Allergies Medications benazepril (Lotensin) Oral, Every Day, Refills: 0 Results GENERAL CHEMISTRY Most recent 1 to oldest [Reference Range]: Sodium Level 138 mmol/L [136-144 (03/07/17 11:54 AM) mmol/L] Potassium 3.9 mmol/L Level (03/07/17 11:54 AM) [3.7-5.0 mmol/L] Chloride 99 mmol/L Level (03/07/17 11:54 AM) [98-107 mmol/L] Carbon 29.0 mMole/Liter Dioxide (03/07/17 11:54 AM) Level [24.0-33.0 mMole/Liter] Anion Gap 10.0 [2.0-11.0] (03/07/17 11:54 AM) Glucose 102 mg/dL Level (03/07/17 11:54 AM) [70-110 mg/dL] Blood Urea 15 mg/dL Nitrogen (03/07/17 11:54 AM) [6-20 mg/dL] Creatinine 0.85 mg/dL Level (03/07/17 11:54 AM) [0.64-1.27 mg/dL] eGFR 118 mL/min/1.73m2 [>=60 (03/07/17 11:54 AM) mL/min/1.73m 2] eGFR 97 mL/min/1.73m2 NonAfrican (03/07/17 11:54 AM) [>=60 mL/min/1.73m 2] Bun/Creatini 18 ne *NA* (03/07/17 11:54 AM) Calcium 9.4 mg/dL Level (03/07/17 11:54 AM) [8.9-10.3 mg/dL] Protein 7.8 Gram/dL Total *HI* [5.9-7.5 (03/07/17 11:54 AM) Gram/dL] Albumin 4.6 Gram/dL Level (03/07/17 11:54 AM) [3.6-4.7 Gram/dL] A/G Ratio 1.4 [1.0-1.8] (03/07/17 11:54 AM) Bilirubin 0.9 mg/dL Total (03/07/17 11:54 AM) [0.4-1.3 mg/dL] Alk Phos 65 Units/Liter [34-106 (03/07/17 11:54 AM) Units/Liter] AST [12-38 28 Units/Liter Units/Liter] (03/07/17 11:54 AM) ALT [8-60 44 Units/Liter Units/Liter] (03/07/17 11:54 AM) Magnesium 1.72 mEq/Liter Level (03/07/17 11:54 AM) [1.40-1.90 mEq/Liter] Lipase Level 16 Units/Liter [10-50 (03/07/17 11:54 AM) Units/Liter] Lactic Acid 1.1 mmol/L Level (03/07/17 11:54 AM) [0.5-2.2 mmol/L] HEMATOLOGY Most recent 1 to oldest [Reference Range]: WBC 12.1 10x3/mm3 [4.1-10.8 *HI* 10x3/mm3] (03/07/17 11:54 AM) RBC 5.11 Million/mm3 [4.37-5.74 (03/07/17 11:54 AM) Million/mm3] Hgb 16.7 Gram/dL [13.7-17.5 (03/07/17 11:54 AM) Gram/dL] Hct 48.4 % [40.1-51.0 (03/07/17 11:54 AM) %] MCV 94.7 fL [79.0-92.2 *HI* fL] (03/07/17 11:54 AM) MCH 32.7 pg [25.6-32.2 *HI* pg] (03/07/17 11:54 AM) MCHC 34.5 Gram/dL [32.3-36.5 (03/07/17 11:54 AM) Gram/dL] Platelet 265 10x3/mm3 Count (03/07/17 11:54 AM) [140-370 10x3/mm3] MPV 9.7 fL [8.7-12.0 (03/07/17 11:54 AM) fL] RDW 13.6 % [11.7-15.2 (03/07/17 11:54 AM) %] Neut % 76.3 % [34.0-69.5 *HI* %] (03/07/17 11:54 AM) Neut # 9.20 x10(3)/uL [1.70-6.00 *HI* x10(3)/uL] (03/07/17 11:54 AM) Lymph % 12.8 % [20.0-53.0 *LOW* %] (03/07/17 11:54 AM) Lymph # 1.6 x10(3)/uL [0.8-3.2 (03/07/17 11:54 AM) x10(3)/uL] [place] % 7.6 % [5.0-12.5 %] (03/07/17 11:54 AM) [place] # 0.9 x10(3)/uL [0.2-1.4 (03/07/17 11:54 AM) x10(3)/uL] Eos % 1.9 % [0.7-6.0 %] (03/07/17 11:54 AM) Eos # 0.2 x10(3)/uL [0.0-0.6 (03/07/17 11:54 AM) x10(3)/uL] Baso % 1.4 % [0.0-3.0 %] (03/07/17 11:54 AM) Baso # 0.2 x10(3)/uL [0.0-0.3 (03/07/17 11:54 AM) x10(3)/uL] COAGULATION Most recent 1 to oldest [Reference Range]: PT [9.4-12.2 12.0 Second(s) Second(s)] (03/07/17 11:54 AM) INR 1.05 INR *NA* (03/07/17 11:54 AM) URINALYSIS Most recent 1 to oldest [Reference Range]: Urine Type. U CleanCatch *NA* (03/07/17 11:54 AM) Urine Color Yellow *NA* (03/07/17 11:54 AM) Urine Clear Appearance (03/07/17 11:54 AM) [Clear] Urine 1.015 Specific *NA* [place] (03/07/17 11:54 AM) [1.003-1.030 ] Urine pH 6.0 Dipstick (03/07/17 11:54 AM) [5.0-8.0] Urine Negative Leukocyte (03/07/17 11:54 AM) Esterase [Negative] Urine Negative Nitrite (03/07/17 11:54 AM) [Negative] Urine Negative Protein (03/07/17 11:54 AM) Dipstick [Negative] Urine Negative Glucose (03/07/17 11:54 AM) Dipstick [Negative] Urine Negative Ketones (03/07/17 11:54 AM) Dipstick [Negative] Urine 0.2 EU/dL Urobilinogen (03/07/17 11:54 AM) Dipstick [0.1-1.0 EU/dL] Urine Negative Bilirubin (03/07/17 11:54 AM) Dipstick [Negative] Urine Blood Negative Dipstick (03/07/17 11:54 AM) [Negative] Ur RBC None /HPF (03/07/17 11:54 AM) Ur WBC 0-2 /HPF (03/07/17 11:54 AM) Ur Bacteria None Seen (03/07/17 11:54 AM) Ur Few Epithelial (03/07/17 11:54 AM) Cells Immunizations No data available for this section Procedures No data available for this section Social History Social History Response Type Smoking Status Current every day smoker; Years of Tobacco Use 34; Packs/Tins Daily 0.5 Assessment and Plan No data available for this section Hospital Discharge Instructions No data available for this section
--- OUTSIDE RECORDS SUMMARY | 2017-05-01 21:40 | External Medical Summary Rpt ---
Author Author [facility] Address Unknown Phone Unavailable Care Team Providers Care Drug Safety Scientist Name Role Phone Nahomy WAITE PCP [phone] Encounter [facility] [id number] Date(s): 03/03/17 - 03/04/17 [facility] [address] [place] [address]- [facility] Discharge Diagnosis: Abdominal pain Discharge Disposition: [...] Stated Source (03/03/17 5:16 PM) Height Entry [place] Format (03/03/17 5:16 PM) Height/Lengt 6 ft h, MAORI (03/03/17 5:16 PM) (ft) CLINICALHEIG 182.88 cm HT (03/03/17 5:16 PM) Weight Stated Source, ED (03/03/17 5:16 PM) [place] Body 76.59 kg Weight (03/03/17 5:16 PM) [...] 5:34 PM) [Clear] Urine 1.025 Specific *NA* [place] (03/03/17 5:34 PM) [1.003-1.030 ] Urine pH [...]
--- OUTSIDE RECORDS SUMMARY | 2017-05-01 21:40 | External Medical Summary Rpt ---
Author Author [facility] Address Unknown Phone Unavailable Care Team Providers Care Rotor Coil Taper Name Role Phone Nahomy WAITE PCP [phone] Encounter [facility] [id number] Date(s): 03/07/17 - 03/07/17 [facility] [address] [place] [address]- [facility] Discharge Diagnosis: Abdominal wall fluid collections Discharge [...] (03/07/17 Therapy Mode 11:10 AM) Height Entry [place] (03/07/17 Format 11:10 AM) Height/Lengt 6 ft (03/07/17 h, AL[place] 11:10 AM) (ft) Height/Lengt 0 Inch (03/07/17 h AL[place]IAN 11:10 AM) CLINICALHEIG 182.88 cm HT (03/07/17 11:10 AM) Weight Estimated Source, ED (03/07/17 11:10 AM) [place] Body 76.59 kg (03/07/17 Weight 11:10 AM) [...] 1.6 x10(3)/uL [0.8-3.2 (03/07/17 11:54 AM) x10(3)/uL] [place] % 7.6 % [5.0-12.5 %] (03/07/17 11:54 AM) [place] # 0.9 x10(3)/uL [0.2-1.4 (03/07/17 11:54 AM) [...] 11:54 AM) [Clear] Urine 1.015 Specific *NA* [place] (03/07/17 11:54 AM) [1.003-1.030 ] Urine pH [...]
--- OUTSIDE RECORDS SUMMARY | 2017-05-01 21:40 | External Medical Summary Rpt ---
Author Author [facility] Address Unknown Phone Unavailable Care Team Providers Care Nutrition Aide Name Role Phone Nahomy WAITE PCP [phone] Encounter [facility] [id number] Date(s): 03/15/17 - 03/15/17 [facility] [address] [place] [address]- [facility] Discharge Diagnosis: Abdominal wall abscess Discharge Disposition: Admitted to Hospital 72HRS Attending Physician: JEAN-PAUL LUNSFORD, -EMR Admitting Physician: JEAN-PAUL LUNSFORD, -EMR Referring Physician: ZELDA, UNKNOWN Reason for Visit ABDOMEN PAIN Vital Signs Most recent 1 2 to oldest [Reference Range]: Temperature Tympanic Source (03/15/17 11:50 AM) Temperature Fahrenheit Mode (03/15/17 11:50 AM) Temperature, 97.8 Deg F Fahrenheit (03/15/17 11:50 AM) [96.8-99.7 Deg F] Clinical 36.6 Deg C Temperature, (03/15/17 11:50 AM) C Peripheral 88 bpm 105 bpm Pulse Rate (03/15/17 4:29 PM) *HI* [60-100 bpm] (03/15/17 11:50 AM) Respiratory 18 Breaths/Min Rate [14-20 (03/15/17 11:50 AM) Breaths/Min] Blood 131/78 mmHg 143/102 mmHg Pressure (03/15/17 4:29 PM) *HI* [90-140/60-9 (03/15/17 11:50 AM) 0 mmHg] Oxygen 99 % 98 % Saturation (03/15/17 4:29 PM) (03/15/17 11:50 AM) [94-100 %] Oxygen Room air Room air Therapy Mode (03/15/17 4:29 PM) (03/15/17 11:50 AM) Height Stated Source (03/15/17 11:50 AM) Height Entry [place] Format (03/15/17 11:50 AM) Height/Lengt 6 ft h, UPPER [place] (03/15/17 11:50 AM) (ft) CLINICALHEIG 182.88 cm HT (03/15/17 11:50 AM) Weight Stated Source, ED (03/15/17 11:50 AM) [place] Body 76.59 kg Weight (03/15/17 11:50 AM) Problem List Condition Effective Status Health [...] 1 to oldest [Reference Range]: Sodium Level 140 mmol/L [136-144 (03/15/17 12:10 PM) mmol/L] Potassium 3.9 mmol/L Level (03/15/17 12:10 PM) [3.7-5.0 mmol/L] Chloride 99 mmol/L Level (03/15/17 12:10 PM) [98-107 mmol/L] Carbon 27.0 mMole/Liter Dioxide (03/15/17 12:10 PM) Level [24.0-33.0 mMole/Liter] Anion Gap 14.0 [2.0-11.0] *HI* (03/15/17 12:10 PM) Glucose 106 mg/dL Level (03/15/17 12:10 PM) [70-110 mg/dL] Blood Urea 16 mg/dL Nitrogen (03/15/17 12:10 PM) [6-20 mg/dL] Creatinine 0.97 mg/dL Level (03/15/17 12:10 PM) [0.64-1.27 mg/dL] eGFR 101 mL/min/1.73m2 [>=60 (03/15/17 12:10 PM) mL/min/1.73m 2] eGFR 83 mL/min/1.73m2 NonAfrican (03/15/17 12:10 PM) [>=60 mL/min/1.73m 2] Bun/Creatini 16 ne *NA* (03/15/17 12:10 PM) Calcium 9.2 mg/dL Level (03/15/17 12:10 PM) [8.9-10.3 mg/dL] Protein 7.7 Gram/dL Total *HI* [5.9-7.5 (03/15/17 12:10 PM) Gram/dL] Albumin 4.8 Gram/dL Level *HI* [3.6-4.7 (03/15/17 12:10 PM) Gram/dL] A/G Ratio 1.7 [1.0-1.8] (03/15/17 12:10 PM) Bilirubin 0.5 mg/dL Total (03/15/17 12:10 PM) [0.4-1.3 mg/dL] Alk Phos 56 Units/Liter [34-106 (03/15/17 12:10 PM) Units/Liter] AST [12-38 27 Units/Liter Units/Liter] (03/15/17 12:10 PM) ALT [8-60 24 Units/Liter Units/Liter] (03/15/17 12:10 PM) Lipase Level 19 Units/Liter [10-50 (03/15/17 12:10 PM) Units/Liter] HEMATOLOGY Most recent 1 to oldest [Reference Range]: WBC 12.6 10x3/mm3 [4.1-10.8 *HI* 10x3/mm3] (03/15/17 12:10 PM) RBC 4.89 Million/mm3 [4.37-5.74 (03/15/17 12:10 PM) Million/mm3] Hgb 15.9 Gram/dL [13.7-17.5 (03/15/17 12:10 PM) Gram/dL] Hct 46.3 % [40.1-51.0 (03/15/17 12:10 PM) %] MCV 94.7 fL [79.0-92.2 *HI* fL] (03/15/17 12:10 PM) MCH 32.4 pg [25.6-32.2 *HI* pg] (03/15/17 12:10 PM) MCHC 34.2 Gram/dL [32.3-36.5 (03/15/17 12:10 PM) Gram/dL] Platelet 318 10x3/mm3 Count (03/15/17 12:10 PM) [140-370 10x3/mm3] MPV 9.2 fL [8.7-12.0 (03/15/17 12:10 PM) fL] RDW 13.6 % [11.7-15.2 (03/15/17 12:10 PM) %] COAGULATION Most recent 1 to oldest [Reference Range]: PT [9.4-12.2 11.6 Second(s) Second(s)] (03/15/17 12:10 PM) INR 1.02 INR *NA* (03/15/17 12:10 PM) PTT 28.5 Second(s) [23.1-34.6 (03/15/17 12:10 PM) Second(s)] URINALYSIS Most recent 1 to oldest [Reference Range]: Urine Type. U CleanCatch *NA* (03/15/17 12:10 PM) Urine Color Yellow *NA* (03/15/17 12:10 PM) Urine Clear Appearance (03/15/17 12:10 PM) [Clear] Urine 1.025 Specific *NA* [place] (03/15/17 12:10 PM) [1.003-1.030 ] Urine pH 7.0 Dipstick (03/15/17 12:10 PM) [5.0-8.0] Urine Negative Leukocyte (03/15/17 12:10 PM) Esterase [Negative] Urine Negative Nitrite (03/15/17 12:10 PM) [Negative] Urine 30 mg/dL Protein *ABN* Dipstick (03/15/17 12:10 PM) [Negative mg/dL] Urine Negative Glucose (03/15/17 12:10 PM) Dipstick [Negative] Urine Negative Ketones (03/15/17 12:10 PM) Dipstick [Negative] Urine 0.2 EU/dL Urobilinogen (03/15/17 12:10 PM) Dipstick [0.1-1.0 EU/dL] Urine Negative Bilirubin (03/15/17 12:10 PM) Dipstick [Negative] Urine Blood Negative Dipstick (03/15/17 12:10 PM) [Negative] Ur RBC None /HPF (03/15/17 12:10 PM) Ur WBC 0-2 /HPF (03/15/17 12:10 PM) Ur Bacteria None Seen (03/15/17 12:10 PM) Ur Mucous 1+ /HPF (03/15/17 12:10 PM) Ur Amorph 1+ /HPF (03/15/17 12:10 PM) Ur None Epithelial (03/15/17 12:10 PM) Cells Immunizations No data available for this section Procedures No data available for this section Social History Social History Response Type Smoking Status Current every day smoker; Years of Tobacco Use 34; Packs/Tins Daily 0.5 Assessment and Plan No data available for this section Hospital Discharge Instructions No data available for this section
--- OUTSIDE RECORDS SUMMARY | 2017-05-01 21:40 | External Medical Summary Rpt ---
Author Author [facility] Address Unknown Phone Unavailable Care Team Providers Care Reel Assembler Name Role Phone Nahomy WAITE PCP [phone] Encounter [facility] [id number] Date(s): 03/15/17 - 03/15/17 [facility] [address] [place] [address]- [facility] Discharge Diagnosis: Abdominal wall abscess Discharge Disposition: [...] Stated Source (03/15/17 11:50 AM) Height Entry [place] Format (03/15/17 11:50 AM) Height/Lengt 6 ft h, [place] (03/15/17 11:50 AM) (ft) CLINICALHEIG 182.88 cm HT (03/15/17 11:50 AM) Weight Stated Source, ED (03/15/17 11:50 AM) [place] Body 76.59 kg Weight (03/15/17 11:50 AM) [...] 12:10 PM) [Clear] Urine 1.025 Specific *NA* [place] (03/15/17 12:10 PM) [1.003-1.030 ] Urine pH [...]
--- OUTSIDE RECORDS SUMMARY | 2017-05-01 21:41 | External Medical Summary Rpt ---
Author Author [facility] Address Unknown Phone Unavailable Care Team Providers Care Dietary Services Director Name Role Phone Nahomy WAITE PCP [phone] Encounter [facility] [id number] Date(s): 03/03/17 - 03/05/17 [facility] [address] [place] [address]- Discharge Diagnosis: Seroma Discharge Disposition: IP Self Care / Home Attending Physician: EMMY BARAJAS MD, -JULIO Admitting Physician: EMMY BARAJAS MD, MATTHEW Referring Physician: EMMY BARAJAS MD, MATTHEW Reason for Visit TRANSIENT CEREBRAL ISCHEMIC ATTACK, UNSPECIFIED Vital Signs Most recent 1 2 3 to oldest [Reference Range]: Temperature Oral (03/05/17 Oral Oral Source 12:00 PM) (03/05/17 8:00 AM) (03/05/17 4:00 AM) Temperature Fahrenheit Fahrenheit Fahrenheit Mode (03/05/17 12:00 (03/05/17 8:00 AM) (03/05/17 4:00 AM) PM) Temperature, 98.0 Deg F 98.1 Deg F 98.1 Deg F Fahrenheit (03/05/17 12:00 (03/05/17 8:00 AM) (03/05/17 4:00 AM) [96.8-99.7 PM) Deg F] Clinical 36.7 Deg C 36.7 Deg C 37 Deg C (03/05/17 Temperature, (03/05/17 12:00 (03/05/17 4:00 AM) 12:00 AM) C PM) Peripheral 83 bpm 69 bpm 71 bpm Pulse Rate (03/04/17 6:41 PM) (03/04/17 5:28 PM) (03/04/17 7:00 AM) [60-100 bpm] Heart Rate 75 bpm (03/05/17 83 bpm 78 bpm Monitored 12:00 PM) (03/05/17 8:00 AM) (03/05/17 4:00 AM) [60-100 bpm] Respiratory 18 Breaths/Min 18 Breaths/Min 18 Breaths/Min Rate [14-20 (03/05/17 12:00 (03/05/17 8:00 AM) (03/05/17 4:00 AM) Breaths/Min] PM) Blood Arm, right upper Arm, right upper Arm, right upper Pressure (03/04/17 6:41 PM) (03/04/17 5:28 PM) (03/04/17 3:20 PM) Location Blood Non-Invasive BP Non-Invasive BP Non-Invasive BP Pressure Device (03/05/17 Device (03/05/17 Device (03/04/17 Source 4:00 AM) 12:00 AM) 8:00 PM) Blood Sitting Sitting Supine Pressure (03/04/17 6:41 PM) (03/04/17 5:28 PM) (03/04/17 1:52 PM) Position Blood 128/72 mmHg 129/63 mmHg 121/79 mmHg Pressure (03/05/17 12:00 (03/05/17 8:00 AM) (03/05/17 4:00 AM) [90-140/60-9 PM) 0 mmHg] Mean 91 mmHg (03/05/17 93 mmHg 94 mmHg (03/05/17 Arterial 12:00 PM) (03/05/17 4:00 AM) 12:00 AM) Pressure (MAP) Mean 85 (03/05/17 12:00 85 92 Arterial PM) (03/04/17 4:30 PM) (03/04/17 4:15 PM) Pressure (MAP)-BMDI Oxygen 96 % (03/05/17 95 % 98 % Saturation 12:00 PM) (03/05/17 8:00 AM) (03/05/17 4:00 AM) [94-100 %] Oxygen Room air (03/05/17 Room air Room air Therapy Mode 12:00 PM) (03/05/17 8:00 AM) (03/05/17 4:00 AM) Oxygen Flow 2 Liter/Min 2 Liter/Min 2 Liter/Min Rate (03/04/17 4:30 PM) (03/04/17 4:15 PM) (03/04/17 4:00 PM) Problem List Condition Effective Status Health [...] 2 to oldest [Reference Range]: Sodium Level 136 mmol/L 138 mmol/L [136-144 (03/05/17 6:50 AM) (03/04/17 4:47 AM) mmol/L] Potassium 4.3 mmol/L 4.0 mmol/L Level (03/05/17 6:50 AM) (03/04/17 4:47 AM) [3.7-5.0 mmol/L] Chloride 106 mmol/L 107 mmol/L Level (03/05/17 6:50 AM) (03/04/17 4:47 AM) [98-107 mmol/L] Carbon 22.2 mmol/L 24.7 mmol/L Dioxide *LOW* (03/04/17 4:47 AM) Level (03/05/17 6:50 AM) [24.0-33.0 mmol/L] Anion Gap 7.8 6.3 [2.0-11.0] (03/05/17 6:50 AM) (03/04/17 4:47 AM) Glucose 88 mg/dL 86 mg/dL Level (03/05/17 6:50 AM) (03/04/17 4:47 AM) [70-110 mg/dL] Blood Urea 13 mg/dL 11 mg/dL Nitrogen (03/05/17 6:50 AM) (03/04/17 4:47 AM) [6-20 mg/dL] Creatinine 0.85 mg/dL 0.91 mg/dL Level (03/05/17 6:50 AM) (03/04/17 4:47 AM) [0.64-1.27 mg/dL] eGFR 118 mL/min/1.73m2 109 mL/min/1.73m2 [>=60 (03/05/17 6:50 AM) (03/04/17 4:47 AM) mL/min/1.73m 2] eGFR 97 mL/min/1.73m2 90 mL/min/1.73m2 NonAfrican (03/05/17 6:50 AM) (03/04/17 4:47 AM) [>=60 mL/min/1.73m 2] Bun/Creatini 15.3 12.1 ne (03/05/17 6:50 AM) (03/04/17 4:47 AM) [6.0-22.0] Calcium 8.3 mg/dL 8.4 mg/dL Level *LOW* *LOW* [8.9-10.3 (03/05/17 6:50 AM) (03/04/17 4:47 AM) mg/dL] Protein 5.7 Gram/dL Total *LOW* [5.9-7.5 (03/04/17 4:47 AM) Gram/dL] Albumin 3.3 Gram/dL Level *LOW* [3.6-4.7 (03/04/17 4:47 AM) Gram/dL] A/G Ratio 1.4 [1.0-1.8] (03/04/17 4:47 AM) Bilirubin 0.8 mg/dL Total (03/04/17 4:47 AM) [0.4-1.3 mg/dL] Alk Phos 52 Units/Liter [34-106 (03/04/17 4:47 AM) Units/Liter] AST [12-38 21 Units/Liter Units/Liter] (03/04/17 4:47 AM) ALT [8-60 37 Units/Liter Units/Liter] (03/04/17 4:47 AM) Magnesium 1.80 mEq/Liter Level (03/05/17 6:50 AM) [1.40-1.90 mEq/Liter] Phosphorus 3.4 mg/dL [2.7-4.7 (03/05/17 6:50 AM) mg/dL] HEMATOLOGY Most recent 1 2 to oldest [Reference Range]: WBC 9.0 x10(3)/uL 10.6 x10(3)/uL [4.1-10.8 (03/05/17 6:50 AM) (03/04/17 4:47 AM) x10(3)/uL] RBC 4.52 x10(6)/uL 4.83 x10(6)/uL [4.37-5.74 (03/05/17 6:50 AM) (03/04/17 4:47 AM) x10(6)/uL] Hgb 14.9 Gram/dL 15.5 Gram/dL [13.7-17.5 (03/05/17 6:50 AM) (03/04/17 4:47 AM) Gram/dL] Hct 43.0 % 45.7 % [40.1-51.0 (03/05/17 6:50 AM) (03/04/17 4:47 AM) %] MCV 95.2 fL 94.6 fL [79.0-92.2 *HI* *HI* fL] (03/05/17 6:50 AM) (03/04/17 4:47 AM) MCH 32.9 pg 32.0 pg [25.6-32.2 *HI* (03/04/17 4:47 AM) pg] (03/05/17 6:50 AM) MCHC 34.6 Gram/dL 33.9 Gram/dL [32.3-36.5 (03/05/17 6:50 AM) (03/04/17 4:47 AM) Gram/dL] Platelet 181 x10(3)/uL 197 x10(3)/uL Count (03/05/17 6:50 AM) (03/04/17 4:47 AM) [140-370 x10(3)/uL] MPV 9.6 fL 9.7 fL [8.7-12.0 (03/05/17 6:50 AM) (03/04/17 4:47 AM) fL] RDW 13.4 % 13.6 % [11.7-15.2 (03/05/17 6:50 AM) (03/04/17 4:47 AM) %] Neut % 70.2 % 62.6 % [34.0-69.5 *HI* (03/04/17 4:47 AM) %] (03/05/17 6:50 AM) Neut # 6.40 x10(3)/uL 6.60 x10(3)/uL [1.70-6.00 *HI* *HI* x10(3)/uL] (03/05/17 6:50 AM) (03/04/17 4:47 AM) Lymph % 16.0 % 22.1 % [20.0-53.0 *LOW* (03/04/17 4:47 AM) %] (03/05/17 6:50 AM) Lymph # 1.4 x10(3)/uL 2.3 x10(3)/uL [0.8-3.2 (03/05/17 6:50 AM) (03/04/17 4:47 AM) x10(3)/uL] [place] % 10.2 % 10.7 % [5.0-12.5 %] (03/05/17 6:50 AM) (03/04/17 4:47 AM) [place] # 0.9 x10(3)/uL 1.1 x10(3)/uL [0.2-1.4 (03/05/17 6:50 AM) (03/04/17 4:47 AM) x10(3)/uL] Eos % 2.8 % 3.8 % [0.7-6.0 %] (03/05/17 6:50 AM) (03/04/17 4:47 AM) Eos # 0.2 x10(3)/uL 0.4 x10(3)/uL [0.0-0.6 (03/05/17 6:50 AM) (03/04/17 4:47 AM) x10(3)/uL] Baso % 0.8 % 0.8 % [0.0-3.0 %] (03/05/17 6:50 AM) (03/04/17 4:47 AM) Baso # 0.1 x10(3)/uL 0.1 x10(3)/uL [0.0-0.3 (03/05/17 6:50 AM) (03/04/17 4:47 AM) x10(3)/uL] Slide Review None None *NA* *NA* (03/05/17 6:50 AM) (03/04/17 4:47 AM) COAGULATION Most recent 1 2 to oldest [Reference Range]: PT [9.7-13.1 11.4 Second(s) Second(s)] (03/04/17 9:02 AM) INR 1.03 *NA* (03/04/17 9:02 AM) PTT 32.6 Second(s) [24.6-34.4 (03/04/17 9:02 AM) Second(s)] BLOOD BANK Most recent 1 2 to oldest [Reference Range]: ABO/Rh A NEG *Unknown* (03/04/17 9:01 AM) ABO/Rh A NEG Repeat *Unknown* (03/04/17 9:01 AM) Antibody Negative ABSC Screen (03/04/17 9:01 AM) Immunizations No data available for this section Procedures Procedure Date Related Body Site Diagnosis Laparoscopy Diagnostic1 03/04 1auto-populated from documented surgical case Social History Social History Response Type Smoking Status Current every day smoker; Years of Tobacco Use 34; Packs/Tins Daily 0.5 Assessment and Plan Extracted from: Title: Discharge Note Author: SYBIL RACHEL, Date: 03/05/17 RESIDENT Discharge Plan -diharge home -follow-up with Dr. Barajas in clinic in 1 week. -restart home medications [id number] Transient cerebral ischemic attack, [id number], Transient cerebral ischemic attack, [id number] Orders: benazepril, 20 mg, Oral, Tab, Daily, Start 03/05/17 10:00:00 EDT docusate-senna, 1 Tab, Oral, Tab, Daily, Routine, Start 03/05/17 10:00:00 EDT enoxaparin, 40 mg, SubCutaneous, Inj, Daily, Routine, Start 03/05/17 10:00:00 EDT hydroCHLOROthiazide, 25 mg, Oral, Tab, Daily, Start 03/05/17 10:00:00 EDT polyethylene glycol 3350, 17 Gram, Oral, Powder, Daily, Routine, Start 03/05/17 10:00:00 EDT Discharge Discharge Activity Discharge Diet Discharge Orders Discharge - Ordered -- Start: 03/05/17 9:15:00 EDT, Discharge to: Home Discharge Activity - Ordered -- Start: 03/05/17 9:15:00 EDT, Activity: No heavy lifting over 10 lbs, Do not soak wounds in bath or hot tub Discharge Diet - Ordered -- Start: 03/05/17 9:15:00 EDT, Diet: Resume usual diet as tolerated Patient Discharge Condition Stable Discharge Disposition Home -- Start: 03/05/17 9:15:00 EDT, Discharge to: Home Discharge Activity - Ordered -- Start: 03/05/17 9:15:00 EDT, Activity: No heavy lifting over 10 lbs, Do not soak wounds in bath or hot tub Discharge Diet - Ordered -- Start: 03/05/17 9:15:00 EDT, Diet: Resume usual diet as tolerated Patient Discharge Condition Stable Discharge Disposition Home Extracted from: Title: Surgical Author: SYBIL RACHEL, Date: 03/05/17 Progress Note RESIDENT Assessment/Plan 46 yo POD# 9 from mesh ventral hernia repair, now POD#1 from diagnostic laparoscopy with drainage of superficial seroma -Regular diet -IS -Ambulate -Miralax and docusate added -lovenox -Restart home antihypertensives -d/c home if bowel movement -Ambulate -Miralax and docusate added -lovenox -Restart home antihypertensives -d/c home if bowel movement Hospital Discharge Instructions Patient EducationDiagnostic Laparoscopy Seroma Tissue Adhesive Wound Care
--- OUTSIDE RECORDS SUMMARY | 2017-05-01 21:41 | External Medical Summary Rpt ---
Author Author [facility] Address Unknown Phone Unavailable Care Team Providers Care Meter Tester Polyphase Name Role Phone Nahomy WAITE PCP [phone] Encounter [facility] [id number] Date(s): 03/18/17 - 03/18/17 [facility] [address] [place] [address]- [facility] Discharge Diagnosis: Abdominal pain Discharge Disposition: OP Self Care or Home Attending Physician: TERRENCE JUDGE, -EMR Admitting Physician: TERRENCE JUDGE, -EMR Referring Physician: SHAHBAZY, UNKNOWN Reason for Visit ABD PAIN, SURGERY 02/24/17 Vital Signs Most recent 1 2 to oldest [Reference Range]: Temperature Oral Source (03/18/17 6:06 PM) Temperature Fahrenheit Mode (03/18/17 6:06 PM) Temperature, 98.0 Deg F Fahrenheit (03/18/17 6:06 PM) [96.8-99.7 Deg F] Clinical 36.7 Deg C Temperature, (03/18/17 6:06 PM) C Peripheral 83 bpm 93 bpm Pulse Rate (03/18/17 7:31 PM) (03/18/17 6:06 PM) [60-100 bpm] Respiratory 14 Breaths/Min 16 Breaths/Min Rate [14-20 (03/18/17 7:31 PM) (03/18/17 6:06 PM) Breaths/Min] Blood Arm, left upper Pressure (03/18/17 7:31 PM) Location Blood Non-Invasive BP Device Pressure (03/18/17 7:31 PM) Source Blood 137/95 mmHg 148/104 mmHg Pressure (03/18/17 7:31 PM) *HI* [90-140/60-9 (03/18/17 6:06 PM) 0 mmHg] Oxygen 98 % 98 % Saturation (03/18/17 7:31 PM) (03/18/17 6:06 PM) [94-100 %] Oxygen Room air Room air Therapy Mode (03/18/17 7:31 PM) (03/18/17 6:06 PM) Height Stated Source (03/18/17 6:06 PM) Height Entry [place] Format (03/18/17 6:06 PM) Height/Lengt 6 ft h, [place] (03/18/17 6:06 PM) (ft) Height/Lengt 0 Inch h [place] (03/18/17 6:06 PM) CLINICALHEIG 182.88 cm HT (03/18/17 6:06 PM) Weight Estimated Source, ED (03/18/17 6:06 PM) [place] Body 76.59 kg Weight (03/18/17 6:06 PM) Problem List Condition Effective Status Health [...] 1 to oldest [Reference Range]: Sodium Level 139 mmol/L [136-144 (03/18/17 7:02 PM) mmol/L] Potassium 3.5 mmol/L Level *LOW* [3.7-5.0 (03/18/17 7:02 PM) mmol/L] Chloride 104 mmol/L Level (03/18/17 7:02 PM) [98-107 mmol/L] Carbon 25.0 mMole/Liter Dioxide (03/18/17 7:02 PM) Level [24.0-33.0 mMole/Liter] Anion Gap 10.0 [2.0-11.0] (03/18/17 7:02 PM) Glucose 94 mg/dL Level (03/18/17 7:02 PM) [70-110 mg/dL] Blood Urea 9 mg/dL Nitrogen (03/18/17 7:02 PM) [6-20 mg/dL] Creatinine 0.88 mg/dL Level (03/18/17 7:02 PM) [0.64-1.27 mg/dL] eGFR 112 mL/min/1.73m2 [>=60 (03/18/17 7:02 PM) mL/min/1.73m 2] eGFR 93 mL/min/1.73m2 NonAfrican (03/18/17 7:02 PM) [>=60 mL/min/1.73m 2] Bun/Creatini 10 ne *NA* (03/18/17 7:02 PM) Calcium 9.0 mg/dL Level (03/18/17 7:02 PM) [8.9-10.3 mg/dL] Protein 6.6 Gram/dL Total (03/18/17 7:02 PM) [5.9-7.5 Gram/dL] Albumin 4.1 Gram/dL Level (03/18/17 7:02 PM) [3.6-4.7 Gram/dL] A/G Ratio 1.6 [1.0-1.8] (03/18/17 7:02 PM) Bilirubin 0.5 mg/dL Total (03/18/17 7:02 PM) [0.4-1.3 mg/dL] Alk Phos 48 Units/Liter [34-106 (03/18/17 7:02 PM) Units/Liter] AST [12-38 16 Units/Liter Units/Liter] (03/18/17 7:02 PM) ALT [8-60 16 Units/Liter Units/Liter] (03/18/17 7:02 PM) Lipase Level 17 Units/Liter [10-50 (03/18/17 7:02 PM) Units/Liter] HEMATOLOGY Most recent 1 to oldest [Reference Range]: WBC 9.2 10x3/mm3 [4.1-10.8 (03/18/17 7:02 PM) 10x3/mm3] RBC 4.53 Million/mm3 [4.37-5.74 (03/18/17 7:02 PM) Million/mm3] Hgb 14.8 Gram/dL [13.7-17.5 (03/18/17 7:02 PM) Gram/dL] Hct 42.5 % [40.1-51.0 (03/18/17 7:02 PM) %] MCV 93.8 fL [79.0-92.2 *HI* fL] (03/18/17 7:02 PM) MCH 32.7 pg [25.6-32.2 *HI* pg] (03/18/17 7:02 PM) MCHC 34.8 Gram/dL [32.3-36.5 (03/18/17 7:02 PM) Gram/dL] Platelet 245 10x3/mm3 Count (03/18/17 7:02 PM) [140-370 10x3/mm3] MPV 9.1 fL [8.7-12.0 (03/18/17 7:02 PM) fL] RDW 13.2 % [11.7-15.2 (03/18/17 7:02 PM) %] Neut % 67.8 % [34.0-69.5 (03/18/17 7:02 PM) %] Neut # 6.20 x10(3)/uL [1.70-6.00 *HI* x10(3)/uL] (03/18/17 7:02 PM) Lymph % 20.3 % [20.0-53.0 (03/18/17 7:02 PM) %] Lymph # 1.9 x10(3)/uL [0.8-3.2 (03/18/17 7:02 PM) x10(3)/uL] [place] % 6.7 % [5.0-12.5 %] (03/18/17 7:02 PM) [place] # 0.6 x10(3)/uL [0.2-1.4 (03/18/17 7:02 PM) x10(3)/uL] Eos % 4.2 % [0.7-6.0 %] (03/18/17 7:02 PM) Eos # 0.4 x10(3)/uL [0.0-0.6 (03/18/17 7:02 PM) x10(3)/uL] Baso % 1.0 % [0.0-3.0 %] (03/18/17 7:02 PM) Baso # 0.1 x10(3)/uL [0.0-0.3 (03/18/17 7:02 PM) x10(3)/uL] Immunizations No data available for this section Procedures No data available for this section Social History Social History Response Type Smoking Status Current every day smoker; Years of Tobacco Use 34; Packs/Tins Daily 0.5 Assessment and Plan No data available for this section Hospital Discharge Instructions Patient EducationAbdominal Pain, Adult, [id number]
--- OUTSIDE RECORDS SUMMARY | 2017-05-01 21:41 | External Medical Summary Rpt ---
Author Author [facility] Address Unknown Phone Unavailable Care Team Providers Care Food Prep Worker Name Role Phone Nahomy WAITE PCP [phone] Encounter [facility] [id number] Date(s): 01/18/17 - 01/19/17 [facility] [address] [place] [address]- Discharge Diagnosis: Acute bronchitis Discharge Disposition: OP Self Care or Home Attending Physician: BERNARDINO HENNESSY, -CAR Admitting Physician: BERNARDINO HENNESSY, -CAR Reason for Visit CHEST PAIN, UNSPECIFIED Vital Signs Most recent 1 2 3 to oldest [Reference Range]: Temperature Oral Oral Oral Source (01/19/17 8:00 AM) (01/18/17 10:45 PM) (01/18/17 6:00 PM) Temperature Fahrenheit Fahrenheit Fahrenheit Mode (01/19/17 8:00 AM) (01/18/17 10:45 PM) (01/18/17 6:00 PM) Temperature, 98.6 Deg F 98.5 Deg F 98.1 Deg F Fahrenheit (01/19/17 8:00 AM) (01/18/17 10:45 PM) (01/18/17 6:00 PM) [96.8-99.7 Deg F] Clinical 37 Deg C 36.7 Deg C Temperature, (01/19/17 8:00 AM) (01/18/17 6:00 PM) C Peripheral 62 bpm 84 bpm Pulse Rate (01/19/17 8:00 AM) (01/18/17 10:45 PM) [60-100 bpm] Heart Rate 63 bpm 85 bpm 69 bpm Monitored (01/19/17 8:00 AM) (01/19/17 4:30 AM) (01/19/17 3:00 AM) [60-100 bpm] Respiratory 11 Breaths/Min 12 Breaths/Min 14 Breaths/Min Rate [14-20 *LOW* *LOW* (01/19/17 3:00 AM) Breaths/Min] (01/19/17 8:00 AM) (01/19/17 4:30 AM) Blood Arm, right upper Arm, right upper Arm, right upper Pressure (01/19/17 8:00 AM) (01/19/17 4:30 AM) (01/19/17 1:00 AM) Location Blood Non-Invasive BP Non-Invasive BP Non-Invasive BP Pressure Device (01/19/17 Device (01/19/17 Device (01/19/17 Source 8:00 AM) 4:30 AM) 1:00 AM) Blood Sitting Supine Supine Pressure (01/19/17 8:00 AM) (01/19/17 4:30 AM) (01/19/17 1:00 AM) Position Blood 124/85 mmHg 127/89 mmHg 125/90 mmHg Pressure (01/19/17 8:00 AM) (01/19/17 4:30 AM) (01/19/17 3:00 AM) [90-140/60-9 0 mmHg] Mean 98 mmHg 114.858503 mmHg 106.350817 mmHg Arterial (01/19/17 8:00 AM) (01/18/17 10:45 PM) (01/18/17 7:00 PM) Pressure (MAP) Mean 96 99 113 Arterial (01/19/17 8:00 AM) (01/19/17 4:30 AM) (01/18/17 10:45 PM) Pressure (MAP)-BMDI Oxygen 96 % 95 % 97 % Saturation (01/19/17 8:00 AM) (01/19/17 1:00 AM) (01/18/17 7:00 PM) [94-100 %] Oxygen Room air Room air Room air Therapy Mode (01/19/17 8:00 AM) (01/19/17 1:00 AM) (01/18/17 7:00 PM) Height Stated Source (01/18/17 5:46 PM) Height Entry [place] Format (01/18/17 5:46 PM) Height/Lengt 6 ft h, ANGUILLAN (01/18/17 5:46 PM) (ft) CLINICALHEIG 182.88 cm HT (01/18/17 5:46 PM) Weight Standing scale Source (01/18/17 5:46 PM) Weight Entry Metric, kilograms Format (01/18/17 5:46 PM) Weight 108.6 kg METRIC kg (01/18/17 5:46 PM) CLINICALWEIG 108.6 kg HT (01/18/17 5:46 PM) Body Surface 2.3 m2 Area (BSA) (01/18/17 5:46 PM) Body Mass 32.5 kg/m2 Index *HI* [19.0-24.0 (01/18/17 5:46 PM) kg/m2] [place] Body 77 kg Weight (01/18/17 5:46 PM) Problem List Condition Effective Status Health Informant Dates Status HTN Active (hypertensio n)(Confirmed ) Hernia of Active abdominal cavity(Confi rmed) Depression(C Active onfirmed) Allergies, Adverse Reactions, Alerts No Known Medication Allergies Medications benazepril-hydroCHLOROthiazide (benazepril-hydrochlorothiazide 20 mg-25 mg oral tablet)1 Tab, Oral, Every Day, Refills: 0 doxycycline (doxycycline monohydrate 100 mg oral tablet)1 Tab, Oral, Two Times A Day, Refills: 0Patient Instructions: Electronically sent to [facility] provider: AMANDA KAPADIA MD-PUL methylPREDNISolone (Medrol Dosepak 4 mg oral tablet)1 Packet, Oral, zzzAdHoc, as directed on package labeling, 6 Day(s), Refills: 0Patient Instructions: Electronically sent to [facility] provider: AMANDA KAPADIA MD-PUL tiotropium (Spiriva 18 mcg inhalation capsule)1 Cap, Inhalation, Every Day, Refills: 0Patient Instructions: Electronically sent to [facility] provider: AMANDA KAPADIA MD-PUL Results GENERAL CHEMISTRY Most recent 1 to oldest [Reference Range]: Sodium Level 138 mmol/L [136-144 (01/19/17 3:09 AM) mmol/L] Potassium 4.1 mmol/L Level (01/19/17 3:09 AM) [3.7-5.0 mmol/L] Chloride 104 mmol/L Level (01/19/17 3:09 AM) [98-107 mmol/L] Carbon 24.7 mmol/L Dioxide (01/19/17 3:09 AM) Level [24.0-33.0 mmol/L] Anion Gap 9.3 [2.0-11.0] (01/19/17 3:09 AM) Glucose 114 mg/dL Level *HI* [70-110 (01/19/17 3:09 AM) mg/dL] Blood Urea 14 mg/dL Nitrogen (01/19/17 3:09 AM) [6-20 mg/dL] Creatinine 0.89 mg/dL Level (01/19/17 3:09 AM) [0.64-1.27 mg/dL] eGFR 112 mL/min/1.73m2 [>=60 (01/19/17 3:09 AM) mL/min/1.73m 2] eGFR 92 mL/min/1.73m2 NonAfrican (01/19/17 3:09 AM) [>=60 mL/min/1.73m 2] Bun/Creatini 15.7 ne (01/19/17 3:09 AM) [6.0-22.0] Calcium 8.6 mg/dL Level *LOW* [8.9-10.3 (01/19/17 3:09 AM) mg/dL] Protein 5.5 Gram/dL Total *LOW* [5.9-7.5 (01/19/17 3:09 AM) Gram/dL] Albumin 3.7 Gram/dL Level (01/19/17 3:09 AM) [3.6-4.7 Gram/dL] A/G Ratio 2.1 [1.0-1.8] *HI* (01/19/17 3:09 AM) Bilirubin 0.5 mg/dL Total (01/19/17 3:09 AM) [0.4-1.3 mg/dL] Alk Phos 55 Units/Liter 1 [34-106 (01/19/17 3:09 AM) Units/Liter] AST [12-38 10 Units/Liter 2 Units/Liter] *LOW* (01/19/17 3:09 AM) ALT [8-60 18 Units/Liter 3 Units/Liter] (01/19/17 3:09 AM) Magnesium 1.78 mEq/Liter Level (01/19/17 3:09 AM) [1.40-1.90 mEq/Liter] 1Result Comment: [id number] Comment: [id number] Comment: okCARDIAC SPECIFIC MARKERS Most recent 1 to oldest [Reference Range]: Troponin I <0.01 ng/mL [0.00-0.02 (01/18/17 7:09 PM) ng/mL] Immunizations No data available for this section Procedures No data available for this section Social History Social History Response Type Smoking Status Current every day smoker; Years of Tobacco Use 34; Packs/Tins Daily 0.5 Assessment and Plan Extracted from: Title: [facility] [place] [facility] Author: JAIRO AGUILAR, Date: 01/19/17 Discharge Note -CAR Discharge Plan 1. Acute bronchitis 2. Atypical chest Pain 3. Hypertension-now controlled 4. Positive tobacco abuse 5. Depression 6. Hyperlipidemia-may consider initiation of statin. No qualifying data available. Patient Discharge Condition Good Discharge Disposition Home Adde Dr. hennessy recommends outpt stress test in 2 weeks. Scheduling ndum called. by JAIRO AGUILAR, AUDIOPROSTHOLOGIST on 19 January 2017 16:2 3:45 EDT Hospital Discharge Instructions Patient EducationAcute Bronchitis, [id number]
--- OUTSIDE RECORDS SUMMARY | 2017-05-01 21:41 | External Medical Summary Rpt ---
Author Author [facility] Organization [facility] Address Unknown Phone Unavailable Care Team Providers Care Certified Medication Aide Name Role Phone Nahomy WAITE PCP [phone] Encounter [facility] [id number] Date(s): 03/03/17 - 03/05/17 [facility] [address] [place] [address]- Discharge Diagnosis: Seroma Discharge Disposition: IP Self [...] (03/05/17 6:50 AM) (03/04/17 4:47 AM) x10(3)/uL] [place] % 10.2 % 10.7 % [5.0-12.5 %] (03/05/17 6:50 AM) (03/04/17 4:47 AM) [place] # 0.9 x10(3)/uL 1.1 x10(3)/uL [0.2-1.4 (03/05/17 [...] clinic in 1 week. -restart home medications [id number] Transient cerebral ischemic attack, [id number], Transient cerebral ischemic attack, [id number] Orders: benazepril, 20 mg, Oral, Tab, Daily, [...]
--- OUTSIDE RECORDS SUMMARY | 2017-05-01 21:41 | External Medical Summary Rpt ---
Author Author [facility] Address Unknown Phone Unavailable Care Team Providers Care Pipe Fitter Ammonia Name Role Phone Nahomy WAITE PCP [phone] Encounter [facility] [id number] Date(s): 03/18/17 - 03/18/17 [facility] [address] [place] [address]- [facility] Discharge Diagnosis: Abdominal pain Discharge Disposition: OP [...] Stated Source (03/18/17 6:06 PM) Height Entry [place] Format (03/18/17 6:06 PM) Height/Lengt 6 ft h, ANDORRAN (03/18/17 6:06 PM) (ft) Height/Lengt 0 Inch h ANDORRAN (03/18/17 6:06 PM) CLINICALHEIG 182.88 cm HT (03/18/17 6:06 PM) Weight Estimated Source, ED (03/18/17 6:06 PM) [place] Body 76.59 kg Weight (03/18/17 6:06 PM) [...] 1.9 x10(3)/uL [0.8-3.2 (03/18/17 7:02 PM) x10(3)/uL] [place] % 6.7 % [5.0-12.5 %] (03/18/17 7:02 PM) [place] # 0.6 x10(3)/uL [0.2-1.4 (03/18/17 7:02 PM) [...] Hospital Discharge Instructions Patient EducationAbdominal Pain, Adult, Aohm-es-Qpyp
--- OUTSIDE RECORDS SUMMARY | 2017-05-01 21:41 | External Medical Summary Rpt ---
Author Author [facility] Organization [facility] Address Unknown Phone Unavailable Care Team Providers Care Marketing Coordinator Name Role Phone Nahomy WAITE PCP [phone] Encounter [facility] [id number] Date(s): 01/18/17 - 01/19/17 [facility] [address] [place] [address]- Discharge Diagnosis: Acute bronchitis Discharge Disposition: OP [...] AM) [90-140/60-9 0 mmHg] Mean 98 mmHg 114.209853 mmHg 106.470790 mmHg Arterial (01/19/17 8:00 AM) (01/18/17 10:45 [...] Stated Source (01/18/17 5:46 PM) Height Entry [place] Format (01/18/17 5:46 PM) Height/Lengt 6 ft h, [place] (01/18/17 5:46 PM) (ft) CLINICALHEIG 182.88 cm HT (01/18/17 5:46 PM) Weight Standing scale Source (01/18/17 5:46 PM) Weight Entry Metric, kilograms Format (01/18/17 5:46 PM) Weight 108.6 kg METRIC kg (01/18/17 5:46 PM) CLINICALWEIG 108.6 kg HT (01/18/17 5:46 PM) Body Surface 2.3 m2 Area (BSA) (01/18/17 5:46 PM) Body Mass 32.5 kg/m2 Index *HI* [19.0-24.0 (01/18/17 5:46 PM) kg/m2] [place] Body 77 kg Weight (01/18/17 5:46 PM) [...] Day, Refills: 0Patient Instructions: Electronically sent to [facility] provider: AMANDA KAPADIA MD-PUL methylPREDNISolone (Medrol Dosepak 4 mg oral tablet)1 Packet, Oral, zzzAdHoc, as directed on package labeling, 6 Day(s), Refills: 0Patient Instructions: Electronically sent to [facility] provider: AMANDA KAPADIA MD-PUL tiotropium (Spiriva 18 mcg inhalation capsule)1 Cap, Inhalation, Every Day, Refills: 0Patient Instructions: Electronically sent to [facility] provider: AMANDA KAPADIA MD-PUL Results GENERAL [...] (01/19/17 3:09 AM) [1.40-1.90 mEq/Liter] 1Result Comment: [id number] Comment: [id number] Comment: okCARDIAC SPECIFIC MARKERS Most recent 1 to oldest [Reference Range]: Troponin I <0.01 ng/mL [0.00-0.02 (01/18/17 7:09 PM) ng/mL] Immunizations No data available for this section Procedures No data available for this section Social History Social History Response Type Smoking Status Current every day smoker; Years of Tobacco Use 34; Packs/Tins Daily 0.5 Assessment and Plan Extracted from: Title: [facility] Author: JAIRO AGUILAR, Date: 01/19/17 Discharge Note -CAR Discharge Plan 1. Acute bronchitis 2. Atypical chest Pain 3. Hypertension-now controlled 4. Positive tobacco abuse 5. Depression 6. Hyperlipidemia-may consider initiation of statin. No qualifying data available. Patient Discharge Condition Good Discharge Disposition Home Adde Dr. hennessy recommends outpt stress test in 2 weeks. Scheduling ndum called. by JAIRO AGUILAR, UTILITY BILL COLLECTION CLERK on 19 January 2017 16:2 3:45 EDT Hospital Discharge Instructions Patient EducationAcute Bronchitis, Wwck-ij-Boog
--- OUTSIDE RECORDS SUMMARY | 2017-05-01 21:42 | External Medical Summary Rpt ---
Author Author [facility] Organization [facility] Address Unknown Phone Unavailable Care Team Providers Care Pallet Rectifier Name Role Phone Nahomy WAITE PCP [phone] Encounter [facility] [id number] Date(s): 03/07/17 - 03/10/17 [facility] [address] [place] [address]- Discharge Disposition: IP Self Care / Home Attending Physician: EMMY KING MD, MD-JULIO Admitting Physician: EMMY KING MD, MD-JULIO Referring Physician: CHANNING WAITE V, -INT Reason for Visit CUTANEOUS ABSCESS, UNSPECIFIED Vital Signs Most recent 1 2 3 to oldest [Reference Range]: Temperature Oral Oral Oral Source (03/10/17 7:00 AM) (03/09/17 8:00 PM) (03/09/17 7:00 AM) Temperature Fahrenheit Fahrenheit Fahrenheit Mode (03/10/17 7:00 AM) (03/09/17 8:00 PM) (03/09/17 7:00 AM) Temperature, 98.4 Deg F 98.5 Deg F 98.2 Deg F Fahrenheit (03/10/17 7:00 AM) (03/09/17 8:00 PM) (03/09/17 7:00 AM) [96.8-99.7 Deg F] Clinical 36.9 Deg C 36.7 Deg C 36.7 Deg C Temperature, (03/09/17 8:00 PM) (03/08/17 8:00 PM) (03/07/17 8:00 PM) C Peripheral 66 bpm Pulse Rate (03/07/17 5:18 PM) [60-100 bpm] Heart Rate 71 bpm 78 bpm 69 bpm Monitored (03/10/17 7:00 AM) (03/09/17 8:00 PM) (03/09/17 7:00 AM) [60-100 bpm] Respiratory 18 Breaths/Min 18 Breaths/Min 18 Breaths/Min Rate [14-20 (03/10/17 7:00 AM) (03/09/17 8:00 PM) (03/09/17 7:00 AM) Breaths/Min] Blood Non-Invasive BP Non-Invasive BP Non-Invasive BP Pressure Device (03/10/17 Device (03/09/17 Device (03/09/17 Source 7:00 AM) 8:00 PM) 7:00 AM) Blood 121/79 mmHg 130/70 mmHg 125/77 mmHg Pressure (03/10/17 7:00 AM) (03/09/17 8:00 PM) (03/09/17 7:00 AM) [90-140/60-9 0 mmHg] Mean 90 mmHg 85 mmHg 95 mmHg Arterial (03/09/17 8:00 PM) (03/08/17 8:00 PM) (03/07/17 8:00 PM) Pressure (MAP) Mean 94 Arterial (03/07/17 5:18 PM) Pressure (MAP)-BMDI Oxygen 97 % 97 % 99 % Saturation (03/10/17 7:00 AM) (03/09/17 8:00 PM) (03/09/17 7:00 AM) [94-100 %] Oxygen Room air Room air Room air Therapy Mode (03/10/17 7:00 AM) (03/09/17 8:00 AM) (03/08/17 8:00 PM) Routine Standing scale Standing scale Standing scale Weight (03/10/17 4:00 AM) (03/09/17 4:00 AM) (03/08/17 4:00 AM) Source Routine Metric Metric Metric Weight Entry (03/10/17 4:00 AM) (03/09/17 4:00 AM) (03/08/17 4:00 AM) Format Routine 104.6 kg 101.9 kg 102 kg Weight, (03/10/17 4:00 AM) (03/09/17 4:00 AM) (03/08/17 4:00 AM) Kilograms Routine 104.6 kg 101.9 kg 102 kg Weight (03/10/17 4:00 AM) (03/09/17 4:00 AM) (03/08/17 4:00 AM) Calculation Problem List Condition Effective Status Health Informant Dates Status Arthritis(Co Active patient nfirmed) HTN Active (hypertensio n)(Confirmed ) Hernia of Active abdominal cavity(Confi rmed) Migraine(Con Active firmed) Depression(C Active onfirmed) Allergies, Adverse Reactions, Alerts No Known Medication Allergies Medications amoxicillin-clavulanate (Augmentin 500 mg-125 mg oral tablet)1 Tab, Oral, Every 8 Hours, Refills: 0Patient Instructions: rx givenOrdering provider: SYBIL RACHEL, RESIDENT benazepril-hydroCHLOROthiazide (benazepril-hydroCHLOROthiazide 20 mg-25 mg oral tablet)1 Tab, Oral, Every Day, Refills: 0 traMADol (traMADol 100 mg/24 hours oral tablet, extended release)1 Tab, Oral, Every Day, As Needed, Pain, Refills: 0Patient Instructions: rx givenOrdering provider: CATHY CONLEY, -JULIO Results GENERAL CHEMISTRY Most recent 1 2 3 to oldest [Reference Range]: Sodium Level 136 mmol/L 139 mmol/L 136 mmol/L [136-144 (03/10/17 6:15 AM) (03/09/17 6:33 AM) (03/08/17 6:01 AM) mmol/L] Potassium 4.0 mmol/L 4.0 mmol/L 3.8 mmol/L Level (03/10/17 6:15 AM) (03/09/17 6:33 AM) (03/08/17 6:01 AM) [3.7-5.0 mmol/L] Chloride 106 mmol/L 103 mmol/L 103 mmol/L Level (03/10/17 6:15 AM) (03/09/17 6:33 AM) (03/08/17 6:01 AM) [98-107 mmol/L] Carbon 21.4 mmol/L 28.4 mmol/L 25.5 mmol/L Dioxide *LOW*(03/10/17 (03/09/17 6:33 AM) (03/08/17 6:01 AM) Level 6:15 AM) [24.0-33.0 mmol/L] Anion Gap 8.6 (03/10/17 6:15 7.6 (03/09/17 6:33 7.5 (03/08/17 6:01 [2.0-11.0] AM) AM) AM) Glucose 95 mg/dL (03/10/17 93 mg/dL (03/09/17 82 mg/dL (03/08/17 Level 6:15 AM) 6:33 AM) 6:01 AM) [70-110 mg/dL] Blood Urea 12 mg/dL (03/10/17 10 mg/dL (03/09/17 11 mg/dL (03/08/17 Nitrogen 6:15 AM) 6:33 AM) 6:01 AM) [6-20 mg/dL] Creatinine 0.84 mg/dL 1.02 mg/dL 0.74 mg/dL Level (03/10/17 6:15 AM) (03/09/17 6:33 AM) (03/08/17 6:01 AM) [0.64-1.27 mg/dL] eGFR 119 mL/min/1.73m2 95 mL/min/1.73m2 138 mL/min/1.73m2 [>=60 (03/10/17 6:15 (03/09/17 6:33 AM) (03/08/17 6:01 mL/min/1.73m AM) AM) 2] eGFR 98 mL/min/1.73m2 78 mL/min/1.73m2 114 mL/min/1.73m2 NonAfrican (03/10/17 6:15 AM) (03/09/17 6:33 AM) (03/08/17 6:01 [>=60 AM) mL/min/1.73m 2] Bun/Creatini 14.3 (03/10/17 9.8 (03/09/17 6:33 14.9 (03/08/17 ne 6:15 AM) AM) 6:01 AM) [6.0-22.0] Calcium 8.4 mg/dL 8.7 mg/dL 8.6 mg/dL Level *LOW*(03/10/17 *LOW*(03/09/17 *LOW*(03/08/17 [8.9-10.3 6:15 AM) 6:33 AM) 6:01 AM) mg/dL] Magnesium 1.72 mEq/Liter 1.83 mEq/Liter 1.59 mEq/Liter Level (03/10/17 6:15 AM) (03/09/17 6:33 AM) (03/08/17 6:01 AM) [1.40-1.90 mEq/Liter] Phosphorus 4.1 mg/dL 3.6 mg/dL 3.9 mg/dL [2.7-4.7 (03/10/17 6:15 AM) (03/09/17 6:33 AM) (03/08/17 6:01 AM) mg/dL] HEMATOLOGY Most recent 1 2 3 to oldest [Reference Range]: WBC 9.1 x10(3)/uL 11.2 x10(3)/uL 10.4 x10(3)/uL [4.1-10.8 (03/10/17 10:07 *HI*(03/09/17 6:33 (03/08/17 6:01 AM) x10(3)/uL] AM) AM) RBC 4.51 x10(6)/uL 4.69 x10(6)/uL 4.57 x10(6)/uL [4.37-5.74 (03/10/17 10:07 (03/09/17 6:33 AM) (03/08/17 6:01 AM) x10(6)/uL] AM) Hgb 14.9 Gram/dL 14.9 Gram/dL 15.0 Gram/dL [13.7-17.5 (03/10/17 10:07 (03/09/17 6:33 AM) (03/08/17 6:01 AM) Gram/dL] AM) Hct 42.5 % (03/10/17 44.0 % (03/09/17 43.3 % (03/08/17 [40.1-51.0 10:07 AM) 6:33 AM) 6:01 AM) %] MCV 94.2 fL 93.9 fL 94.8 fL [79.0-92.2 *HI*(03/10/17 *HI*(03/09/17 6:33 *HI*(03/08/17 6:01 fL] 10:07 AM) AM) AM) MCH 33.0 pg 31.9 pg (03/09/17 32.8 pg [25.6-32.2 *HI*(03/10/17 6:33 AM) *HI*(03/08/17 6:01 pg] 10:07 AM) AM) MCHC 35.0 Gram/dL 34.0 Gram/dL 34.6 Gram/dL [32.3-36.5 (03/10/17 10:07 (03/09/17 6:33 AM) (03/08/17 6:01 AM) Gram/dL] AM) Platelet 270 x10(3)/uL 260 x10(3)/uL 233 x10(3)/uL Count (03/10/17 10:07 (03/09/17 6:33 AM) (03/08/17 6:01 AM) [140-370 AM) x10(3)/uL] MPV 9.8 fL (03/10/17 9.3 fL (03/09/17 9.3 fL (03/08/17 [8.7-12.0 10:07 AM) 6:33 AM) 6:01 AM) fL] RDW 13.4 % (03/10/17 13.6 % (03/09/17 13.4 % (03/08/17 [11.7-15.2 10:07 AM) 6:33 AM) 6:01 AM) %] Neut % 73.7 % 68.5 % (03/08/17 66.0 % (03/07/17 [34.0-69.5 *HI*(03/09/17 6:33 6:01 AM) 7:44 PM) %] AM) Neut # 8.30 x10(3)/uL 7.10 x10(3)/uL 7.70 x10(3)/uL [1.70-6.00 *HI*(03/09/17 6:33 *HI*(03/08/17 6:01 *HI*(03/07/17 7:44 x10(3)/uL] AM) AM) PM) Lymph % 14.0 % 18.3 % 19.9 % [20.0-53.0 *LOW*(03/09/17 *LOW*(03/08/17 *LOW*(03/07/17 %] 6:33 AM) 6:01 AM) 7:44 PM) Lymph # 1.6 x10(3)/uL 1.9 x10(3)/uL 2.3 x10(3)/uL [0.8-3.2 (03/09/17 6:33 AM) (03/08/17 6:01 AM) (03/07/17 7:44 PM) x10(3)/uL] [place] % 8.3 % (03/09/17 8.3 % (03/08/17 9.1 % (03/07/17 [5.0-12.5 %] 6:33 AM) 6:01 AM) 7:44 PM) [place] # 0.9 x10(3)/uL 0.9 x10(3)/uL 1.1 x10(3)/uL [0.2-1.4 (03/09/17 6:33 AM) (03/08/17 6:01 AM) (03/07/17 7:44 PM) x10(3)/uL] Eos % 3.2 % (03/09/17 3.8 % (03/08/17 4.2 % (03/07/17 [0.7-6.0 %] 6:33 AM) 6:01 AM) 7:44 PM) Eos # 0.4 x10(3)/uL 0.4 x10(3)/uL 0.5 x10(3)/uL [0.0-0.6 (03/09/17 6:33 AM) (03/08/17 6:01 AM) (03/07/17 7:44 PM) x10(3)/uL] Baso % 0.8 % (03/09/17 1.1 % (03/08/17 0.8 % (03/07/17 [0.0-3.0 %] 6:33 AM) 6:01 AM) 7:44 PM) Baso # 0.1 x10(3)/uL 0.1 x10(3)/uL 0.1 x10(3)/uL [0.0-0.3 (03/09/17 6:33 AM) (03/08/17 6:01 AM) (03/07/17 7:44 PM) x10(3)/uL] Neutrophil 68.0 % (03/10/17 Percent Man 10:07 AM) [40.0-72.0 %] ANC # 6.2 K/uL (03/10/17 [2.0-8.0 10:07 AM) K/uL] Lymph 20 % Percent Man *LOW*(03/10/17 [22-44 %] 10:07 AM) ALYC # 1.8 K/uL (03/10/17 [0.4-4.6 10:07 AM) K/uL] [place] Percent 7 % (03/10/17 Man [4-12 10:07 AM) %] Eos Percent 5 % (03/10/17 Man [0-6 %] 10:07 AM) RBC Normal (03/10/17 Morphology 10:07 AM) [Normal] Platelet Ct Adequate (03/10/17 Estimate 10:07 AM) [Adequate] Slide Review Add Diff Man None *NA*(03/09/17 None *NA*(03/08/17 (03/10/17 10:07 6:33 AM) 6:01 AM) AM) (03/09/17 6:33 AM) (03/08/17 6:01 AM) Immunizations No data available for this section Procedures No data available for this section Social History Social History Response Type Smoking Status Current every day smoker; Years of Tobacco Use 34; Packs/Tins Daily 0.5 Assessment and Plan Extracted from: Title: Discharge Note Author: SYBIL RACHEL, Date: 03/10/17 RESIDENT Discharge Plan -f/u with Dr. King in clinic in 1 week -Day 2/7 of PO augmentin, continue for 5 days as an outpatient Cutaneous abscess, [id number], Cutaneous abscess, [id number] Orders: magnesium oxide, 400 mg, Oral, Tab, 1-Time, Routine, Start 03/10/17 8:00:00 EDT, Stop 03/10/17 8:00:00 EDT Convert IV to Saline Lock No qualifying data available. Patient Discharge Condition Stable Discharge Disposition Home Patient Discharge Condition Stable Discharge Disposition Home Extracted from: Title: Surgical Author: SYBIL RACHEL, Date: 03/10/17 Progress Note RESIDENT Assessment/Plan 46 yo POD#14 from mesh ventral hernia repair, now POD#6 from diagnostic laparoscopy with drainage of superficial seroma who returns for admission of an abdominal mass concerning for seroma recurrence with possible abscess -tolerating GIS diet -abx changed to augmentin -f/u fluid cultures -likely d/c home today -abx changed to augmentin -f/u fluid cultures -likely d/c home today Adde I personally saw and examined the patient. I have reviewed and ndum agree with the residents findings, including all diagnostic by interpretations and treatments plans as written. I was present MILL for any chang portions of the procedures performed and the ER, inclusive time noted in any critical statement.Clinically KEIT feeling better; Pain improved; no fevers. philip diet;Abdomen H R, benign;Home today with short interval f/u with Dr. King. ADORE UR on 2016 14:1 4:13 EDT Extracted from: Title: Surgical Author: SYBIL RACHEL, Date: 03/09/17 Progress Note RESIDENT Assessment/Plan 46 yo POD#13 from mesh ventral hernia repair, now POD#5 from diagnostic laparoscopy with drainage of superficial seroma who returns for admission of an abdominal mass concerning for seroma recurrence with possible abscess - NPO at midnight - IV NS @75 - zosyn day 3 - CT abdomen and pelvis with fluid collection (10.3 x 2.3 , 8.3 x 3.0 , 2.7 x 2.5) first two contain air concerning for abscess - IR aspiration of fluid collection of the ventral abdominal today - afebrile currently - PO meds following IR - DVT ppx following IR - CLD following IR - f/u labs and replete lytes prn - afebrile currently - PO meds following IR - DVT ppx following IR - CLD following IR - f/u labs and replete lytes prn Adde I personally saw and examined the patient. I have reviewed and ndum agree with the residents findings, including all diagnostic by interpretations and treatments plans as written. I was present MILL for any chang portions of the procedures performed and the ER, inclusive time noted in any critical statement.S/p aspiration KEIT seromas. Feels a bit better.Abdomen benign; breathing H R, nonlabored/F/u cultures; Advance diet; Mobilize; Home tomorrow. ADORE UR on 2016 19:1 0:31 EDT Extracted from: Title: Surgical Author: ILAN CARLOS Date: 03/08/17 Progress Note MD Dwayne-JULIO (RES) Assessment/Plan 46 yo POD#12 from mesh ventral hernia repair, now POD#4 from diagnostic laparoscopy with drainage of superficial seroma who returns for admission of an abdominal mass concerning for seroma recurrence with possible abscess - NPO at midnight - IV NS @75 - replete lytes - zosyn - CT abdomen and pelvis with fluid collection (10.3 x 2.3 , 8.3 x 3.0 , 2.7 x 2.5) first two contain air concerning for abscess - IR aspiration of fluid collection of the ventral abdominal today - afebrile currently - PO meds following IR - DVT ppx following IR - CLD following IR - replete lytes prn - IR aspiration of fluid collection of the ventral abdominal today - afebrile currently - PO meds following IR - DVT ppx following IR - CLD following IR - replete lytes prn Adde Attending Attestation: Patient seen and examined by me. I ndum reviewed the associated imaging studies and laboratory data. I by agree with the above findings and plan of care.I have a low SUTT suspicion of infection,and believe that the2 areas are ON, larger because of recentlaparoscopy. However, we PATESFAYE umanzor for culture. Dwayne FINE MD-S UR on 2016 12:1 2:01 EDT Hospital Discharge Instructions Patient EducationVenous Thromboembolism, Prevention
--- OUTSIDE RECORDS SUMMARY | 2017-05-01 21:42 | External Medical Summary Rpt ---
Author Author [facility] Organization [facility] Address Unknown Phone Unavailable Care Team Providers Care Roll Or Tape Edge Machine Operator Name Role Phone Nahomy WAITE PCP [phone] Encounter [facility] [id number] Date(s): 03/15/17 - 03/17/17 [facility] [address] [place] [address]- Discharge Diagnosis: Seroma Discharge Disposition: IP Self Care / Home Attending Physician: GAURAV ALANIZ MD-SUR Admitting Physician: GAURAV ALANIZ MD-SUR Referring Physician: SELF, REFERRED (REF), -UNK Reason for Visit UNSPECIFIED ABDOMINAL PAIN Vital Signs Most recent 1 2 3 to oldest [Reference Range]: Temperature Oral Oral Oral Source (03/17/17 7:00 AM) (03/16/17 8:00 PM) (03/16/17 8:00 AM) Temperature Fahrenheit Fahrenheit Fahrenheit Mode (03/17/17 7:00 AM) (03/16/17 8:00 PM) (03/16/17 8:00 AM) Temperature, 97.5 Deg F 97.8 Deg F 97.5 Deg F Fahrenheit (03/17/17 7:00 AM) (03/16/17 8:00 PM) (03/16/17 8:00 AM) [96.8-99.7 Deg F] Clinical 36.4 Deg C 36.6 Deg C 36.4 Deg C Temperature, (03/17/17 7:00 AM) (03/16/17 8:00 PM) (03/16/17 8:00 AM) C Peripheral 63 bpm 73 bpm Pulse Rate (03/17/17 7:00 AM) (03/15/17 5:15 PM) [60-100 bpm] Heart Rate 80 bpm 84 bpm 72 bpm Monitored (03/16/17 8:00 PM) (03/16/17 8:00 AM) (03/15/17 8:00 PM) [60-100 bpm] Respiratory 18 Breaths/Min 18 Breaths/Min 18 Breaths/Min Rate [14-20 (03/17/17 7:00 AM) (03/16/17 8:00 PM) (03/16/17 8:00 AM) Breaths/Min] Blood Arm, right upper Pressure (03/17/17 7:00 AM) Location Blood Non-Invasive BP Non-Invasive BP Non-Invasive BP Pressure Device (03/17/17 Device (03/16/17 Device (03/16/17 Source 7:00 AM) 8:00 PM) 8:00 AM) Blood Sitting Supine Pressure (03/17/17 7:00 AM) (03/16/17 8:00 AM) Position Blood 109/79 mmHg 126/77 mmHg 142/76 mmHg Pressure (03/17/17 7:00 AM) (03/16/17 8:00 PM) *HI* [90-140/60-9 (03/16/17 8:00 AM) 0 mmHg] Mean 89 mmHg 93 mmHg 98 mmHg Arterial (03/17/17 7:00 AM) (03/16/17 8:00 PM) (03/16/17 8:00 AM) Pressure (MAP) Oxygen 97 % 97 % 99 % Saturation (03/17/17 7:00 AM) (03/16/17 8:00 PM) (03/16/17 8:00 AM) [94-100 %] Oxygen Room air Room air Room air Therapy Mode (03/17/17 7:00 AM) (03/16/17 8:00 PM) (03/16/17 8:00 AM) Weight Standing scale Source (03/15/17 7:20 PM) Weight Entry Metric, kilograms Format (03/15/17 7:20 PM) Weight 100.9 kg METRIC kg (03/15/17 7:20 PM) CLINICALWEIG 100.9 kg HT (03/15/17 7:20 PM) Problem List Condition Effective Status Health [...] [Reference Range]: Sodium Level 139 mmol/L [136-144 (03/16/17 4:14 AM) mmol/L] Potassium 3.3 mmol/L Level *LOW* [3.7-5.0 (03/16/17 4:14 AM) mmol/L] Chloride 101 mmol/L Level (03/16/17 4:14 AM) [98-107 mmol/L] Carbon 28.0 mmol/L Dioxide (03/16/17 4:14 AM) Level [24.0-33.0 mmol/L] Anion Gap 10.0 [2.0-11.0] (03/16/17 4:14 AM) Glucose 90 mg/dL Level (03/16/17 4:14 AM) [70-110 mg/dL] Blood Urea 12 mg/dL Nitrogen (03/16/17 4:14 AM) [6-20 mg/dL] Creatinine 0.94 mg/dL Level (03/16/17 4:14 AM) [0.64-1.27 mg/dL] eGFR 104 mL/min/1.73m2 [>=60 (03/16/17 4:14 AM) mL/min/1.73m 2] eGFR 86 mL/min/1.73m2 NonAfrican (03/16/17 4:14 AM) [>=60 mL/min/1.73m 2] Bun/Creatini 12.8 ne (03/16/17 4:14 AM) [6.0-22.0] Calcium 8.3 mg/dL Level *LOW* [8.9-10.3 (03/16/17 4:14 AM) mg/dL] Magnesium 1.55 mEq/Liter Level (03/16/17 4:14 AM) [1.40-1.90 mEq/Liter] Phosphorus 4.3 mg/dL [2.7-4.7 (03/16/17 4:14 AM) mg/dL] HEMATOLOGY Most recent 1 to oldest [Reference Range]: WBC 8.9 x10(3)/uL [4.1-10.8 (03/16/17 4:14 AM) x10(3)/uL] RBC 4.34 x10(6)/uL [4.37-5.74 *LOW* x10(6)/uL] (03/16/17 4:14 AM) Hgb 14.2 Gram/dL [13.7-17.5 (03/16/17 4:14 AM) Gram/dL] Hct 41.1 % [40.1-51.0 (03/16/17 4:14 AM) %] MCV 94.6 fL [79.0-92.2 *HI* fL] (03/16/17 4:14 AM) MCH 32.8 pg [25.6-32.2 *HI* pg] (03/16/17 4:14 AM) MCHC 34.7 Gram/dL [32.3-36.5 (03/16/17 4:14 AM) Gram/dL] Platelet 247 x10(3)/uL Count (03/16/17 4:14 AM) [140-370 x10(3)/uL] MPV 9.7 fL [8.7-12.0 (03/16/17 4:14 AM) fL] RDW 13.8 % [11.7-15.2 (03/16/17 4:14 AM) %] Neut % 59.1 % [34.0-69.5 (03/16/17 4:14 AM) %] Neut # 5.20 x10(3)/uL [1.70-6.00 (03/16/17 4:14 AM) x10(3)/uL] Lymph % 20.7 % [20.0-53.0 (03/16/17 4:14 AM) %] Lymph # 1.8 x10(3)/uL [0.8-3.2 (03/16/17 4:14 AM) x10(3)/uL] [place] % 11.7 % [5.0-12.5 %] (03/16/17 4:14 AM) [place] # 1.0 x10(3)/uL [0.2-1.4 (03/16/17 4:14 AM) x10(3)/uL] Eos % 7.3 % [0.7-6.0 %] *HI* (03/16/17 4:14 AM) Eos # 0.6 x10(3)/uL [0.0-0.6 (03/16/17 4:14 AM) x10(3)/uL] Baso % 1.2 % [0.0-3.0 %] (03/16/17 4:14 AM) Baso # 0.1 x10(3)/uL [0.0-0.3 (03/16/17 4:14 AM) x10(3)/uL] Slide Review None *NA* (03/16/17 4:14 AM) COAGULATION Most recent 1 to oldest [Reference Range]: PT [9.7-13.1 11.4 Second(s) Second(s)] (03/16/17 4:14 AM) INR 1.00 *NA* (03/16/17 4:14 AM) THERAPEUTIC DRUGS Most recent 1 to oldest [Reference Range]: Vancomycin 13.4 mcg/mL Trough (03/17/17 4:49 AM) [10.0-20.0 mcg/mL] Microbiology Reports TEST: Body Fluid Culture STATUS: Order in Progress BODY SITE: Abdomen SOURCE: Fluid COLLECTED DATE/TIME: 03/16/17 10:17 AMPRELIMINARY REPORTNo growth at 24 hours.STAIN REPORTNo WBC's Seen No organisms seen. Cellular DebrisTEST: Body Fluid Culture STATUS: Order in Progress BODY SITE: Abdomen SOURCE: Fluid COLLECTED DATE/TIME: 03/16/17 10:17 AMPRELIMINARY REPORTNo growth at 24 hours.STAIN REPORTNo WBC's Seen No organisms seen. Immunizations No data available for this section Procedures No data available for this section Social History Social History Response Type Smoking Status Current every day smoker; Years of Tobacco Use 34; Packs/Tins Daily 0.5 Assessment and Plan Extracted from: Title: Discharge Note Author: SYBIL RACHEL, Date: 03/17/17 RESIDENT Discharge Plan -follow-up in clinic with Dr. Parra in 1-2 weeks -we will follow-up fluid cultures, gram stain negative, no need for continuation of abx at this time [id number] Orders: benazepril, 20 mg, Oral, Tab, Daily, Start 03/17/17 10:00:00 EDT famotidine, 20 mg, Oral, Tab, Q12H, Routine, Start 03/17/17 10:00:00 EDT famotidine, 20 mg, IV Push, Inj, Q12H, PRN for Other (See Comment), Routine, Start 03/17/17 8:20:00 EDT hydroCHLOROthiazide, 25 mg, Oral, Tab, Daily, Start 03/17/17 10:00:00 EDT Culture Body Fluid and Stain Culture Body Fluid and Stain Discharge Discharge Activity Discharge Diet Discharge Follow Up Instructions Discharge Orders Discharge - Ordered -- Start: 03/17/17 9:30:00 EDT, Discharge to: Home, Activity: No heavy lifting over 10 lbs Discharge Activity - Ordered -- Start: 03/17/17 9:30:00 EDT, Activity: No heavy lifting over 10 lbs Discharge Diet - Ordered -- Start: 03/17/17 9:30:00 EDT, Diet: Resume usual diet as tolerated Discharge Follow Up Instructions - Ordered -- Start: 03/17/17 9:30:00 EDT, Follow up with Dr. Parra in clinic in 1-2 weeks. Call for an appointment Patient Discharge Condition Stable Discharge Disposition Home -- Start: 03/17/17 9:30:00 EDT, Activity: No heavy lifting over 10 lbs Discharge Diet - Ordered -- Start: 03/17/17 9:30:00 EDT, Diet: Resume usual diet as tolerated Discharge Follow Up Instructions - Ordered -- Start: 03/17/17 9:30:00 EDT, Follow up with Dr. Parra in clinic in 1-2 weeks. Call for an appointment Patient Discharge Condition Stable Discharge Disposition Home Extracted from: Title: Surgical Author: SYBIL RACHEL, Date: 03/17/17 Progress Note RESIDENT Assessment/Plan 47 yo gentleman s/p VHR with mesh followed by negative diagnostic laparoscopy and now mesh aspirationx2 -d/c antibiotics -regular diet -f/u cultures -d/c home today -f/u labs -regular diet -f/u cultures -d/c home today -f/u labs Adde I personally saw and examined the patient. I have reviewed and ndum agree with the residents findings, including all diagnostic by interpretations and treatments plans as written. I was present STRO for any chang portions of the procedures performed and the LLO, inclusive time noted in any critical statement.fluid collection aspirated by IR yesterdayNo organisms on gram stainpain MATTHEW improvedtolerating dietwill plan to discharge today with Mike Logan, outpatient follow-up with Dr. Fidel FINE-S UR on 2016 09:2 3:33 EDT Extracted from: Title: Surgical Author: SYBIL RACHEL, Date: 03/16/17 Progress Note RESIDENT Assessment/Plan 47 yo gentleman s/p VHR with mesh and subsequent seroma aspiration -vanc/zosyn Day 2 -CLD and NPO -lytes replaced -plan for aspiration ofseroma today with cultures Adde I personally saw and examined the patient. I have reviewed and ndum agree with the residents findings, including all diagnostic by interpretations and treatments plans as written. I was present STRO for any chang portions of the procedures performed and the LLO, inclusive time noted in any critical statement.WBC normalized.IR asipration of collection today. MATTHEW Logan MD-S UR on 2016 09:4 2:42 EDT Extracted from: Title: Pharmacy Author: SHOSHANA DAMIAN, Date: 03/15/17 consult: Vancomycin Day PHARMACIST # 1 Pharmacy Consult: Vancomycin Day # 1Ht = 183 cmABW = 106 kgWBC = 12.6SCr = 0.97CrCl >100 ml/minAssessment/Plan:47 yoM currently on vanc and zosyn empirically for intra-abd infection.Third admission this month for same thing, recently had a hernia repair and developed abscessesWill load with Vanc 2500mg x1, maintenance Vanc 1500mg iv [id number] to check trough Tue, prior to 4th dose, goal 15-20mcg/mLPharmacy will follow Assessment/Plan: 47 yoM currently on vanc and zosyn empirically for intra-abd infection. Third admission this month for same thing, recently had a hernia repair and developed abscesses Will load with Vanc 2500mg x1, maintenance Vanc 1500mg iv q12h Plan to check trough Tue, prior to 4th dose, goal 15-20mcg/mL Pharmacy will follow Hospital Discharge Instructions Patient EducationSeroma
--- OUTSIDE RECORDS SUMMARY | 2017-05-01 21:42 | External Medical Summary Rpt ---
Author Author [facility] Organization [facility] Address Unknown Phone Unavailable Care Team Providers Care Customer Relations Consultant Name Role Phone Nahomy WAITE PCP [phone] Encounter [facility] [id number] Date(s): 03/07/17 - 03/10/17 [facility] [address] [place] [address]- Discharge Disposition: IP Self Care / Home [...] (03/08/17 6:01 AM) (03/07/17 7:44 PM) x10(3)/uL] [place] % 8.3 % (03/09/17 8.3 % (03/08/17 9.1 % (03/07/17 [5.0-12.5 %] 6:33 AM) 6:01 AM) 7:44 PM) [place] # 0.9 x10(3)/uL 0.9 x10(3)/uL 1.1 x10(3)/uL [...] 1.8 K/uL (03/10/17 [0.4-4.6 10:07 AM) K/uL] [place] Percent 7 % (03/10/17 Man [4-12 10:07 [...] 5 days as an outpatient Cutaneous abscess, [id number], Cutaneous abscess, [id number] Orders: magnesium oxide, 400 mg, Oral, Tab, [...]
--- OUTSIDE RECORDS SUMMARY | 2017-05-01 21:42 | External Medical Summary Rpt ---
Author Author [facility] Organization [facility] Address Unknown Phone Unavailable Care Team Providers Care Stand Grinder Name Role Phone Nahomy WAITE PCP [phone] Encounter [facility] [id number] Date(s): 03/15/17 - 03/17/17 [facility] [address] [place] [address]- Discharge Diagnosis: Seroma Discharge Disposition: IP Self [...] 1.8 x10(3)/uL [0.8-3.2 (03/16/17 4:14 AM) x10(3)/uL] [place] % 11.7 % [5.0-12.5 %] (03/16/17 4:14 AM) [place] # 1.0 x10(3)/uL [0.2-1.4 (03/16/17 4:14 AM) [...] for continuation of abx at this time [id number] Orders: benazepril, 20 mg, Oral, Tab, Daily, [...] Vanc 2500mg x1, maintenance Vanc 1500mg iv [id number] to check trough Tue, prior to 4th [...]
--- OUTSIDE RECORDS SUMMARY | 2017-05-01 21:43 | External Medical Summary Rpt | CCD ---
Author Author , DONYA Organization DONYA Address Unknown Phone [email or web address] Care Team Providers Care Doughnut Fryer Name Role Phone NU, JUDGE Unavailable Unavailable BUDD, BUDD Unavailable Unavailable [facility], Unavailable Unavailable [facility] Unavailable Unavailable [facility], [facility] TREMAINE, TREMAINE Unavailable Unavailable ROB, ROB Unavailable Unavailable TONA, TONA Unavailable Unavailable GOSHORN, GOSHORN Unavailable Unavailable BERUMEN, BERUMEN Unavailable Unavailable HAYCRAFT, HAYCRAFT Unavailable Unavailable ARELLANO, ARELLANO Unavailable Unavailable STEFFI, STEFFI Unavailable Unavailable TREMAINE, TREMAINE Unavailable Unavailable [facility] Unavailable Unavailable MEDICAL G, [facility] ELLIE ARGUETA Unavailable Unavailable [facility] [employer] Unavailable Unavailable [facility] [employer]. LAY, LAY Unavailable Unavailable LULA, LULA Unavailable Unavailable MCKEON JR, MCKEON JR Unavailable Unavailable RAJ, RAJ Unavailable Unavailable CARLOS, CARLOS Unavailable Unavailable ALANIZ, ALANIZ Unavailable Unavailable DIPESH, DIPESH Unavailable Unavailable [facility], [facility] LUNSFORD, LUNSFORD Unavailable Unavailable SARDANA, SARDANA Unavailable Unavailable BURNHAM, BURNHAM Unavailable Unavailable STIDAM, STIDAM Unavailable Unavailable BARAJAS, BARAJAS Unavailable Unavailable DOMINIK MERY SHORT & Unavailable Unavailable MORILLO P, DOMINIK MERY SHORT & MORILLO P ULRF Surgery, ULRF Unavailable Unavailable Surgery [facility], Unavailable Unavailable [facility], [facility], [facility] ODALIS JACOBO Unavailable Unavailable Purpose Continuity of Care Document - 08-27-2016 through 2016 Problems Code Diagnosis DOS Provider Status R109 UNSPECIFIED 03-18-2017 PHYSICIANS ABDOMINAL IN PAIN EMERGENCY MEDI K77883 CUTANEOUS 03-15-2017 PHYSICIANS ABSCESS OF IN ABDOMINAL EMERGENCY WALL MEDI N281 CYST OF 03-15-2017 DOMINIK KIDNEY MERY ACQUIRED SHORT & MORILLO P N2889 OTHER 03-15-2017 DOMINIK SPECIFIED MERY DISORDERS SHORT & OF KIDNEY MORILLO P AND URETER Q82192 CELLULITIS 2017 DOMINIK OF TRUNK MERY UNSPECIFIED SHORT & MORILLO P R110 NAUSEA 2017 ULRF Surgery R1110 VOMITING 2017 UL UNSPECIFIED Surgery [id number] DISRUPT 2017 [facility] INTERNAL Surgery OPERATION WOUND NEC INITIAL ENC 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 & UNSPECIFIED MORILLO P R1084 GENERALIZED 03-07-2017 PHYSICIANS ABDOMINAL IN PAIN EMERGENCY MEDI R112 NAUSEA WITH 03-07-2017 PHYSICIANS VOMITING IN UNSPECIFIED EMERGENCY MEDI R140 ABDOMINAL 03-07-2017 DOMINIK DISTENSION MERY GASEOUS SHORT & MORILLO P L7634 POSTPROC 03-04-2017 [facility] SKIN HEALTH & SUBQ MEDICAL G TISS FLW OTH PROC G74020 POSTPROC 03-04-2017 [facility] Surgery STR FLW MUSCULOSKEL SYS PROC K429 UMBILICAL 03-03-2017 DOMINIK HERNIA MERY WITHOUT SHORT & OBSTRUCTION MORILLO P OR GANGRENE R079 CHEST PAIN 03-03-2017 DOMINIK UNSPECIFIED MERY SHORT & MORILLO P R1013 EPIGASTRIC 03-03-2017 PHYSICIANS PAIN IN EMERGENCY MEDI R197 DIARRHEA 03-03-2017 PHYSICIANS UNSPECIFIED IN EMERGENCY MEDI R9431 ABNORMAL 03-03-2017 [facility] IOGRAM MEDICAL G I10 ESSENTIAL 02-27-2017 [facility] HYPERTENSIO [facility]OC[facility]ATES N Z0000 ENCOUNTER 02-27-2017 [facility] W/O ABNORMAL FIND Z720 TOBACCO USE 02-27-2017 [facility] Z7689 PERSONS 02-27-2017 [facility] OTH CIRCUMSTANC ES K439 VENTRAL 02-24-2017 [facility] HERNIA Surgery WITHOUT OBSTRUCTION OR GANGRENE J441 CHRONIC 01-19-2017 [facility] DZ W/EXACERBAT ION R000 TACHYCARDIA 01-18-2017 [facility] UNSPECIFIED MEDICAL G R0602 SHORTNESS 01-18-2017 [facility] BRE[facility] IN EMERGENCY MEDI R0789 OTHER CHEST 01-18-2017 PHYSICIANS PAIN IN EMERGENCY MEDI R05 COUGH 12-30-2016 DOMINIK MERY SHORT & MORILLO P R0600 DYSPNEA 12-30-2016 PHYSICIANS UNSPECIFIED IN EMERGENCY MEDI R1011 RIGHT UPPER 12-30-2016 PHYSICIANS QUADRANT IN PAIN EMERGENCY MEDI R509 FEVER 12-30-2016 DOMINIK UNSPECIFIED MERY SHORT & MORILLO P R1032 LEFT LOWER 10-06-2016 DOMINIK QUADRANT MERY PAIN SHORT & MORILLO P F17.210 Nicotine dependence, cigarettes, uncomplicat ed F32.9 Major depressive disorder, single episode, unspecified G43.909 Migraine, unspecified , not intractable , without status migrainosus G89.29 Other chronic pain I10 Essential (primary) hypertensio n K43.9 Ventral hernia without obstruction or gangrene L02.211 Cutaneous abscess of abdominal wall M19.90 Unspecified osteoarthri tis, unspecified site R05 Cough R06.02 Shortness of breath R06.2 Wheezing R07.89 Other chest pain R07.9 Chest pain, unspecified R10.11 Right upper quadrant pain R10.13 Epigastric pain R10.32 Left lower quadrant pain R10.84 Generalized abdominal pain R10.9 Unspecified abdominal pain R11.0 Nausea R18.8 Other ascites R19.7 Diarrhea, unspecified Z79.899 Other shelter (current) drug therapy Z98.890 Other specified postprocedu ral states Allergies, Adverse Reactions, Alerts Clinical Alert Notifications Alert Member has >/= 3 hosp admit & >/= 1 ED visit in 365 days Medications Na ND Rx Da Fi Fi Am Da Di Ph RX Ph St me C No te ll ll ou ys ag ar # ys at rm s nt no ma ic us Or Da si cy ia de te s n re d TR 00 08 09 5. 5 00 WA Ac AM 37 -2 -1 00 00 LG ti AD 84 2- 5- 0 02 RE ve OL 15 20 20 78 EN 29 17 17 14 S HC 3 01 # L 58 ER 13 10 0 MG TA BL ET BE 60 08 09 30 30 00 WA Ac NA 50 -1 -0 .0 00 LG ti ZE 50 1- 8- 00 01 RE ve [place] 26 20 20 40 EN [place] 40 17 17 70 S -H 1 51 #9 CT 22 Z 5 20 -2 5 MG TA B OX 00 08 09 30 5 00 WA Ac YC 22 -0 -0 .0 00 LG ti OD 82 8- 1- 00 00 RE ve ON 98 20 20 51 EN E- 15 17 17 55 S AC 0 86 #1 ET 05 AM 60 IN OP HE N 5- 32 5 TR 68 08 08 42 14 00 WA Ac AM 38 -0 -2 .0 00 LG ti AD 20 1- 5- 00 00 RE ve OL 31 20 20 51 EN 91 17 17 18 S HC 0 27 #1 L 05 50 60 MG TA BL ET TR 68 07 08 42 14 00 WA Ac AM 38 -2 -1 .0 00 LG ti AD 20 0- 8- 00 00 RE ve OL 31 20 20 51 EN 91 17 17 18 S HC 0 27 #1 L 05 50 60 MG TA BL ET ZO 00 07 08 30 30 00 WA Ac LP 09 -2 -1 .0 00 LG ti ID 30 0- 8- 00 00 RE ve EM 07 20 20 51 EN 30 17 17 18 S TA 1 28 #1 RT 05 RA 60 TE 5 MG TA BL ET BE 00 07 08 30 30 00 KR Ac NA 37 -0 -0 .0 00 OG ti ZE 84 8- 4- 00 06 ER ve [place] 77 20 20 46 [place] 50 17 17 12 PH -H [address] MA Z CY 20 L -2 5 -7 MG 58 TA B ME 59 06 07 21 6 00 WA Ac TH 74 -1 -0 .0 00 LG ti YL 60 4- 7- 00 01 RE ve [place] 00 20 20 38 EN ED 10 17 17 93 S NI 3 96 #9 SO 22 LO 5 NE 4 MG DO SE PK LE 31 06 07 7. 7 00 WA Ac VO 72 -1 -0 00 00 LG ti FL 20 4- 7- 0 01 RE ve OX 72 20 20 38 EN AC 32 17 17 93 S IN 0 97 #9 22 75 5 0 MG TA BL ET HY 00 06 07 [address] 59 -1 -0 .0 00 LG ti OC 12 4- 7- 00 01 RE ve OD 17 20 20 38 EN ON 20 17 17 94 S -A 5 36 #9 CE 22 TA 5 WI NO PH EN 5- 32 5 BE 00 06 06 30 30 00 KR Ac NA 37 -0 -3 .0 00 OG ti ZE 84 3- 0- 00 06 ER ve [place] 77 20 20 46 [place] 50 17 17 12 PH -H [address] MA Z CY 20 L -2 5 -7 MG 58 TA B BE 00 04 05 30 30 00 KR Ac NA 37 -2 -2 .0 00 OG ti ZE 84 9- 6- 00 06 ER ve [place] 77 20 20 46 [place] 50 17 17 12 PH -H [address] MA Z CY 20 L -2 5 -7 MG 58 TA B BE 00 04 05 30 30 00 KR Ac NA 37 -0 -0 .0 00 OG ti ZE 84 6- 5- 00 06 ER ve [place] 77 20 20 46 [place] 50 17 17 09 PH -H [address] MA Z CY 20 L -2 5 -7 MG 58 TA B LO 00 02 03 45 15 00 KR Ac RA 59 -2 -2 .0 00 OG ti ZE 10 7- 4- 00 04 ER ve PA 24 20 20 04 M 20 17 17 43 PH 2 1 13 AR MG MA CY TA L BL ET -7 58 AT 59 02 03 30 30 00 KR Ac OR 76 -1 -1 .0 00 OG ti VA 20 3- 0- [address] 15 20 20 44 AT 50 17 17 69 PH IN 2 68 AR MA 10 CY L MG -7 TA 58 BL ET ES 13 02 03 30 30 00 KR Ac CI 66 -1 -1 .0 00 OG ti TA 80 3- 0- 00 06 ER ve LO 13 20 20 44 [place] 71 17 17 70 PH AM 0 23 AR MA 20 CY L MG -7 TA 58 BL ET BE 00 02 03 30 30 00 KR Ac NA 37 -1 -1 .0 00 OG ti ZE 84 3- 0- 00 06 ER ve [place] 77 20 20 44 [place] 50 17 17 70 PH -H [address] MA Z CY 20 L -2 5 -7 MG 58 TA B LO 00 02 03 45 15 00 KR Ac RA 59 -1 -1 .0 00 OG ti ZE 10 3- 0- 00 04 ER ve PA 24 20 20 04 M 20 17 17 43 PH 2 1 13 AR MG MA CY TA L BL ET -7 58 QU 60 02 03 60 30 00 KR Ac ET 50 -0 -0 .0 00 OG ti IA 53 5- 3- 00 06 ER ve PI 13 20 20 44 NE 20 17 17 47 PH 1 72 AR FU MA MA CY RA L TE -7 50 58 MG TA B HY 00 02 03 90 [address] 59 -0 -0 .0 00 OG ti OX 10 5- 3- 00 06 ER ve YZ 80 20 20 44 IN 10 17 17 47 PH E 1 75 AR PA MA M CY 50 L MG -7 58 CA P Procedures Procedure [place] [address] DOMINIK RAJ ABDOMEN & 7 MERY PELVIS SHORT & W/CONTRAS MORILLO P T MATERIAL GROUND A0425 [facility] CO EMS PER STATUTE MILE AMBULANCE A0429 Next [facility] 09854 [facility] 7 Surgery DAY MANAGEMEN T 30 MIN/< SBSQ 07827 [facility] 7 Surgery CARE/DAY 15 [place] [address] DOMINIK BURNHAM GUIDANCE 7 MERY NEEDLE SHORT & PLACEMENT MORILLO P IMG S&I PUNCTURE 62695 DOMINIK CHACHA ASPIRATIO 7 MERY N ABSCESS SHORT & HEMATOMA MORILLO P BULLA/CYS T INITIAL 64045 [facility] 7 Surgery CARE/DAY 30 MINUTES RADEX 75697 DOMINIK ARGUETA ABDOMEN 1 7 MERY SHORT & ANTEROPOS MORILLO P TERIOR VIEW GROUND A0425 [facility] Next 1 [facility] 7 CO EMS CO EMS PER STATUTE MILE AMBULANCE A0429 Next 1 [facility] Next 1 [facility] 7 CO EMS [place] [address] DOMINIK ARGUETA ABDOMEN & 7 MERY PELVIS SHORT & W/CONTRAS MORILLO P T MATERIAL GROUND A0425 Next [facility] MI[facility] 7 CO EMS CO EMS PER STATUTE MILE LAPS ABD 79426 [facility] PRTM&OMEN 7 Surgery MARCUS DX W/WO SPEC BR/WA SPX AMB A0427 [facility] 7 CO EMS CO EMS ALS EMERGENCY TRANSPORT LEVEL 1 ANESTHESI 29338 [facility] MCKEON JR A 7 NE HEALTH INTRAPERI MEDICAL TONEAL G LOWER ABD W/LAPS NOS INITIAL 09328 [facility] 7 Surgery CARE/DAY 50 MINUTES ECG 32976 [facility] 7 NE HEALTH ECG MEDICAL W/LEAST G 12 LDS I&R ONLY RADIOLOGI 27751 DOMINIK LULA [place] 7 MERY EXAMINATI SHORT & ON CHEST [place] [address] DOMINIK ENRIQUEDEN ABDOMEN & 7 MERY PELVIS SHORT & W/CONTRAS MORILLO P T MATERIAL 25 54101 [facility] HYDROXY 7 MEDICAL INCLUDES ASSOCIATE FRACTIONS S IF PERFORMED HEMOGLOBI 27515 [facility] BERUMEN N 7 MEDICAL GLYCOSYLA ASSOCIATE LILIYA A1C S LIPID 77914 [facility] PANEL 7 TIE UP WORKER S COMPREHEN 19180 [facility] SIVE 7 MEDICAL METABOLIC ASSOCIATE PANEL S COLLECTIO 50946 [facility] VENOUS 7 MEDICAL BLOOD ASSOCIATE VENIPUNCT S URE BLOOD 39677 [facility] COUNT 7 MEDICAL MEDICAL COMPLETE ASSOCIATE ASSOCIATE AUTO&AUTO S S DIFRNTL WBC LAPS 56486 [facility] BARAJAS REPAIR 7 Surgery HERNIA EXCEPT INCAL/ING UN REDUCIBLE ANES LWR 83947 [facility] LAY ABD 7 [facility] VENTRAL & MEDICAL G INCISIONA L HERNIA REPAIR INITIAL 28120 [facility] 7 PHYSICIAN CARE/DAY S, [place] [address] [place] [address] DOMINIK TREMAINE ABDOMEN & 7 MERY PELVIS SHORT & W/CONTRAS MORILLO P T MATERIAL GROUND A0425 [facility] 7 CO EMS CO EMS PER STATUTE MILE 3D 48392 DOMINIK JACOBO RENDERING 7 MERY W/INTERP SHORT & & MORILLO P POSTPROCE SS SUPERVISI ON AMB A0427 [facility] 7 CO EMS CO EMS ALS EMERGENCY TRANSPORT LEVEL 1 CT THORAX 64715 DOMINIK JACOBO 7 MERY W/CONTRAS SHORT & T MORILLO P MATERIAL ECG 12708 [facility] STIDAM ROUTINE 7 [facility] ECG MEDICAL W/LEAST G 12 LDS I&R ONLY RADIOLOGI 35303 DOMINIK YIFIELD C EXAM 7 MERY CHEST 2 SHORT & VIEWS MORILLO P FRONTAL&[place] [address] DOMINIK TREMAINE ABDOMEN & 7 MERY PELVIS SHORT & W/CONTRAS MORILLO P T MATERIAL COMPREHEN 39545 [facility] 7 [facility]AL, [place] PANEL BLOOD 83111 [facility] COUNT 7 IDEAL, [place], [employer] AUTO&AUTO DIFRNTL WBC LIPID 60172 [facility] PANEL 7 [place], [place], [employer] RADEX ABD 10706 DOMINIK HAYCRAFT COMPL 7 MERY AQT ABD SHORT & W/S/E/D MORILLO P VIEWS 1 VIEW CH Encounters Encounter Start End Date Code Location Performer Type Date EMERGENCY 91124 PHYSICIAN NU 7 7 S IN DEPARTMEN EMERGENCY T VISIT MEDI MODERATE SEVERITY EMERGENCY 68703 PHYSICIAN JONN DEPT 7 7 S IN VISIT EMERGENCY HIGH MEDI SEVERITY& THREAT FUN EMERGENCY 87894 PHYSICIAN EILEEN DEPT 7 7 S IN VISIT EMERGENCY HIGH MEDI SEVERITY& THREAT FUNJ EMERGENCY 77000 PHYSICIAN TONA DEPT 7 7 S IN VISIT EMERGENCY HIGH MEDI SEVERITY& THREAT FUN PERIODIC 17788 [facility]ITY PREVENTIV 7 7 MEDICAL E MED EST ASSOCIATE PATIENT S 40-64YRS EMERGENCY 13825 PHYSICIAN KEREN DEPT 7 7 S IN VISIT EMERGENCY HIGH MEDI SEVERITY& THREAT FUN EMERGENCY 96227 PHYSICIAN LEÓN 7 7 S IN DEPARTMEN EMERGENCY T VISIT MEDI HIGH/URGE NT SEVERITY
--- OUTSIDE RECORDS SUMMARY | 2017-05-01 21:43 | External Medical Summary Rpt | CCD ---
Author Author , DONYA Organization DONYA Address Unknown Phone [email or web address] Care Team Providers Care Garment Finisher Name Role Phone NU, JUDGE Unavailable Unavailable BUDD, BUDD Unavailable Unavailable [facility], Unavailable Unavailable [facility] Unavailable Unavailable [facility], [facility] TREMAINE, TREMAINE Unavailable Unavailable ROB, ROB Unavailable Unavailable TONA, TONA Unavailable Unavailable GOSHORN, GOSHORN Unavailable Unavailable BERUMEN, BERUMEN Unavailable Unavailable HAYCRAFT, HAYCRAFT Unavailable Unavailable ARELLANO, ARELLANO Unavailable Unavailable STEFFI, STEFFI Unavailable Unavailable TREMAINE, TREMAINE Unavailable Unavailable [facility] Unavailable Unavailable MEDICAL G, [facility] ELLIE ARGUETA Unavailable Unavailable [facility] [employer] Unavailable Unavailable [facility] [employer]. LAY, LAY Unavailable Unavailable LULA, LULA Unavailable [...] P ULRF Surgery, ULRF Unavailable Unavailable Surgery [facility], Unavailable Unavailable [facility], [facility], [facility] ODALIS JACOBO Unavailable Unavailable Purpose Continuity of Care Document - 08-27-2016 through 2016 Problems Code Diagnosis DOS Provider Status R109 UNSPECIFIED 03-18-2017 PHYSICIANS ABDOMINAL IN PAIN EMERGENCY MEDI [id number] CUTANEOUS 03-15-2017 PHYSICIANS ABSCESS OF IN ABDOMINAL EMERGENCY WALL MEDI N281 CYST OF 03-15-2017 DOMINIK KIDNEY MERY ACQUIRED SHORT & MORILLO P N2889 OTHER 03-15-2017 DOMINIK SPECIFIED MERY DISORDERS SHORT & OF KIDNEY MORILLO P AND URETER R59582 CELLULITIS 2017 DOMINIK OF TRUNK MERY UNSPECIFIED SHORT & MORILLO P R110 NAUSEA 2017 ULRF Surgery R1110 VOMITING 2017 UL UNSPECIFIED Surgery R6506MP DISRUPT 2017 [facility] INTERNAL Surgery OPERATION WOUND NEC INITIAL ENC 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 & UNSPECIFIED MORILLO P R1084 GENERALIZED 03-07-2017 PHYSICIANS ABDOMINAL IN PAIN EMERGENCY MEDI R112 NAUSEA WITH 03-07-2017 PHYSICIANS VOMITING IN UNSPECIFIED EMERGENCY MEDI R140 ABDOMINAL 03-07-2017 DOMINIK DISTENSION MERY GASEOUS SHORT & MORILLO P L7634 POSTPROC 03-04-2017 [facility] SKIN HEALTH & SUBQ MEDICAL G TISS FLW OTH PROC M01360 POSTPROC 03-04-2017 [facility] Surgery STR FLW MUSCULOSKEL SYS PROC K429 UMBILICAL 03-03-2017 DOMINIK HERNIA MERY WITHOUT SHORT & OBSTRUCTION MORILLO P OR GANGRENE R079 CHEST PAIN 03-03-2017 DOMINIK UNSPECIFIED MERY SHORT & MORILLO P R1013 EPIGASTRIC 03-03-2017 PHYSICIANS PAIN IN EMERGENCY MEDI R197 DIARRHEA 03-03-2017 PHYSICIANS UNSPECIFIED IN EMERGENCY MEDI R9431 ABNORMAL 03-03-2017 [facility] IOGRAM MEDICAL G I10 ESSENTIAL 02-27-2017 [facility] PRIMARY MEDICAL HYPERTENSIO ASSOCIATES N Z0000 ENCOUNTER 02-27-2017 [facility] ADULT MEDICAL MED EXAM ASSOCIATES W/O ABNORMAL FIND Z720 TOBACCO USE 02-27-2017 [facility] MEDICAL ASSOCIATES Z7689 PERSONS 02-27-2017 [facility] ENCOUNTER MEDICAL HEALTH [facility] ASSOCIATES OTH CIRCUMSTANC ES K439 VENTRAL 02-24-2017 [facility] HERNIA Surgery WITHOUT OBSTRUCTION OR GANGRENE J441 CHRONIC 01-19-2017 [facility] DZ W/EXACERBAT ION R000 TACHYCARDIA 01-18-2017 [facility] UNSPECIFIED MEDICAL G R0602 SHORTNESS 01-18-2017 PHYSICIANS [...] Other ascites R19.7 Diarrhea, unspecified Z79.899 [facility] [place] drug therapy Z98.890 Other specified postprocedu [...] 50 1- 8- 00 01 RE ve ID 26 20 20 40 EN IL 40 [...] 84 8- 4- 00 06 ER ve ID 77 20 20 46 [place] 50 17 17 12 PH -H [address] MA Z CY 20 L -2 5 -7 MG 58 TA B ME 59 06 07 21 6 00 WA Ac TH 74 -1 -0 .0 00 LG ti YL 60 4- 7- 00 01 RE ve ID 00 20 20 38 EN ED 10 [...] 5 36 #9 CE 22 TA 5 AZ NO PH EN 5- 32 5 BE 00 06 06 30 30 00 KR Ac NA 37 -0 -3 .0 00 OG ti ZE 84 3- 0- 00 06 ER ve ID 77 20 20 46 [place] 50 17 17 12 PH -H [address] MA Z CY 20 L -2 5 -7 MG 58 TA B BE 00 04 05 30 30 00 KR Ac NA 37 -2 -2 .0 00 OG ti ZE 84 9- 6- 00 06 ER ve ID 77 20 20 46 IL 50 17 17 12 PH -H [address] MA Z CY 20 L -2 5 -7 MG 58 TA B BE 00 04 05 30 30 00 KR Ac NA 37 -0 -0 .0 00 OG ti ZE 84 6- 5- 00 06 ER ve ID 77 20 20 46 IL 50 17 [...] ER ve LO 13 20 20 44 ID 71 17 17 70 PH AM 0 23 AR MA 20 CY L MG -7 TA 58 BL ET BE 00 02 03 30 30 00 KR Ac NA 37 -1 -1 .0 00 OG ti ZE 84 3- 0- 00 06 ER ve ID 77 20 20 44 IL 50 17 [...] Procedure DOS [place] [address] DOMINIK RAJ ABDOMEN & 7 MERY PELVIS SHORT & W/CONTRAS MORILLO P T MATERIAL GROUND A0425 [facility] CO EMS CO EMS PER STATUTE MILE AMBULANCE A0429 [facility] CO EMS CO EMS [facility] 40286 [facility] DISCHARGE 7 Surgery DAY MANAGEMEN T 30 MIN/< SBSQ 42027 [facility] 7 Surgery CARE/DAY [address] [place] [address] DOMINIK BURNHAM GUIDANCE 7 MERY NEEDLE SHORT & PLACEMENT MORILLO P IMG S&I PUNCTURE 75288 DOMINIK CHACHA ASPIRATIO 7 MERY N ABSCESS SHORT & HEMATOMA MORILLO P BULLA/CYS T INITIAL 12224 [facility] 7 Surgery CARE/DAY 30 MINUTES RADEX 34839 DOMINIK ARGUETA ABDOMEN 1 7 MERY SHORT & ANTEROPOS MORILLO P TERIOR VIEW GROUND A0425 [facility] 7 CO EMS CO EMS PER STATUTE MILE AMBULANCE A0429 [facility] 7 CO EMS [place] [address] DOMINIK ARGUETA ABDOMEN & 7 MERY PELVIS SHORT & W/CONTRAS MORILLO P T MATERIAL GROUND A0425 [facility] 7 CO EMS CO EMS PER STATUTE MILE LAPS ABD 96064 [facility] PRTM&OMEN 7 Surgery MARCUS DX W/WO SPEC BR/WA SPX AMB A0427 [facility] 7 CO EMS CO EMS ALS EMERGENCY TRANSPORT LEVEL 1 ANESTHESI 34363 [facility] MCKEON JR A 7 NE HEALTH INTRAPERI MEDICAL TONEAL G LOWER ABD W/LAPS NOS INITIAL 46817 [facility] 7 Surgery CARE/DAY 50 MINUTES ECG 25898 [facility] ECG MEDICAL W/LEAST G 12 LDS I&R ONLY RADIOLOGI 58615 DOMINIK LULA [place] 7 MERY EXAMINATI SHORT & ON CHEST [place] [address] DOMINIK ENRIQUEDEN ABDOMEN & 7 MERY PELVIS SHORT & W/CONTRAS MORILLO P T MATERIAL 25 33372 [facility] BERUMEN HYDROXY 7 MEDICAL INCLUDES ASSOCIATE FRACTIONS S IF PERFORMED HEMOGLOBI 27612 COMMUNITY BERUMEN N 7 MEDICAL GLYCOSYLA ASSOCIATE LILIYA A1C S LIPID 42004 [facility] PANEL 7 SEWER PIPE SORTER S COMPREHEN 95664 [facility] SIVE 7 MEDICAL METABOLIC ASSOCIATE PANEL S COLLECTIO 03981 [facility] DIPESH N VENOUS 7 MEDICAL BLOOD ASSOCIATE VENIPUNCT S URE BLOOD 40232 [facility] COUNT 7 MEDICAL MEDICAL COMPLETE ASSOCIATE ASSOCIATE AUTO&AUTO S S DIFRNTL WBC LAPS 31799 [facility] REPAIR 7 Surgery HERNIA EXCEPT INCAL/ING UN REDUCIBLE ANES LWR 41582 [facility] LAY ABD 7 [facility] VENTRAL & MEDICAL G INCISIONA L HERNIA REPAIR INITIAL 10746 [facility] 7 PHYSICIAN CARE/DAY S, [place] [address] [place] [address] DOMINIK TREMAINE ABDOMEN & 7 MERY PELVIS SHORT & W/CONTRAS MORILLO P T MATERIAL GROUND A0425 [facility] 7 CO EMS CO EMS PER STATUTE MILE 3D 75391 DOMINIK JACOBO RENDERING 7 MERY W/INTERP SHORT & & MORILLO P POSTPROCE SS SUPERVISI ON AMB A0427 [facility] 7 CO EMS CO EMS ALS EMERGENCY TRANSPORT LEVEL 1 CT THORAX 67463 DOMINIK JACOBO 7 MERY W/CONTRAS SHORT & T MORILLO P MATERIAL ECG 38175 [facility] STIDAM ROUTINE 7 [facility] ECG MEDICAL W/LEAST G 12 LDS I&R ONLY RADIOLOGI 69254 DOMINIK YIFIELD C EXAM 7 MERY CHEST 2 SHORT & VIEWS MORILLO P FRONTAL&[place] [address] DOMINIK TREMAINE ABDOMEN & 7 MERY PELVIS SHORT & W/CONTRAS MORILLO P T MATERIAL COMPREHEN 87239 [facility] 7 [place], [place], [employer] PANEL BLOOD 14860 [facility] COUNT 7 [facility], [place], [employer] INC[employer] AUTO&AUTO DIFRNTL WBC LIPID 68554 [facility] PANEL 7 [employer], [place], INC[employer] INC. RADEX ABD 76894 DOMINIK HAYCRAFT COMPL 7 MERY AQT ABD SHORT & W/S/E/D MORILLO P VIEWS 1 VIEW CH Encounters Encounter Start End Date Code Location Performer Type Date EMERGENCY 53764 PHYSICIAN NU 7 7 S IN DEPARTMEN EMERGENCY T VISIT MEDI MODERATE SEVERITY EMERGENCY 54406 PHYSICIAN JONN DEPT 7 7 S IN VISIT EMERGENCY HIGH MEDI SEVERITY& THREAT FUN EMERGENCY 71390 PHYSICIAN EILEEN DEPT 7 7 S IN VISIT EMERGENCY HIGH MEDI SEVERITY& THREAT FUNJ EMERGENCY 19695 PHYSICIAN TONA DEPT 7 7 S IN VISIT EMERGENCY HIGH MEDI SEVERITY& THREAT FUN PERIODIC 53503 COMMUNITY PREVENTIV 7 7 MEDICAL E MED EST ASSOCIATE PATIENT S 40-64YRS EMERGENCY 97442 PHYSICIAN KEREN DEPT 7 7 S IN VISIT EMERGENCY HIGH MEDI SEVERITY& THREAT FUN EMERGENCY 72161 PHYSICIAN LEÓN 7 7 S IN DEPARTMEN EMERGENCY T VISIT MEDI HIGH/URGE NT SEVERITY
--- OUTSIDE RECORDS SUMMARY | 2017-05-01 21:45 | External Medical Summary Rpt | CCD ---
Author Author , DONYA Organization DONYA Address Unknown Phone [email or web address] Care Team Providers Care Hematology Technologist Name Role Phone NU JUDGE Unavailable Unavailable BUDD, BUDD Unavailable Unavailable [facility], Unavailable Unavailable [facility] Unavailable Unavailable [facility], [facility] TREMAINE, TREMAINE Unavailable Unavailable ROB, ROB Unavailable Unavailable TONA, TONA Unavailable Unavailable GOSHORN, GOSHORN Unavailable Unavailable BERUMEN, BERUMEN Unavailable Unavailable HAYCRAFT, HAYCRAFT Unavailable Unavailable ARELLANO, ARELLANO Unavailable Unavailable STEFFI, STEFFI Unavailable Unavailable TREMAINE, TREMAINE Unavailable Unavailable [facility] Unavailable Unavailable MEDICAL G, [facility] ARGUETA, ARGUETA Unavailable Unavailable [facility] [employer] Unavailable Unavailable [facility]. LAY, LAY Unavailable Unavailable LULA, LULA Unavailable Unavailable MCKEON JR, MCKENO JR Unavailable Unavailable RAJ, RAJ Unavailable Unavailable CARLOS, CARLOS Unavailable Unavailable ALANIZ, ALANIZ Unavailable Unavailable DIPESH, DIPESH Unavailable [facility]available [facility] LUNSFORD, LUNSFORD Unavailable Unavailable BURNHAM, BURNHAM Unavailable Unavailable STIDAM, STIDAM Unavailable Unavailable BARAJAS, BARAJAS Unavailable Unavailable DOMINIK MERY SHORT & Unavailable Unavailable MORILLO P, DOMINIK MERY SHORT & MORILLO P [facility] Surgery, ULRF Unavailable Unavailable Surgery [facility], Unavailable Unavailable [facility], [facility], [facility] ODALIS JACOBO Unavailable Unavailable Purpose Continuity of Care Document - 08-27-2016 through 2016 Problems Code Diagnosis DOS Provider Status R109 UNSPECIFIED 03-18-2017 PHYSICIANS ABDOMINAL IN PAIN EMERGENCY MEDI E02038 CUTANEOUS 03-15-2017 PHYSICIANS ABSCESS OF IN ABDOMINAL EMERGENCY WALL MEDI N281 CYST OF 03-15-2017 DOM[facility]IK KIDNEY MERY ACQUIRED SHORT & MORILLO P N2889 OTHER 03-15-2017 DOMINIK SPECIFIED MERY DISORDERS SHORT & OF KIDNEY MORILLO P AND URETER [id number] CELLULITIS 2017 DOMINIK OF TRUNK MERY UNSPECIFIED SHORT & MORILLO P R110 NAUSEA 2017 [facility] Surgery R1110 VOMITING 2017 [facility] UNSPECIFIED Surgery V7650CM DISRUPT 2017 [facility] INTERNAL Surgery OPERATION WOUND NEC INITIAL ENC 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 SKIN HEALTH & SUBQ MEDICAL G TISS FLW OTH PROC S65012 POSTPROC 03-04-2017 [facility] SEROMA MSK Surgery STR FLW MUSCULOSKEL SYS PROC K429 UMBILICAL 03-03-2017 DOMINIK HERNIA MERY WITHOUT SHORT & OBSTRUCTION MORILLO P OR GANGRENE R079 CHEST PAIN 03-03-2017 DOMINIK UNSPECIFIED MERY SHORT & MORILLO P R1013 EPIGASTRIC 03-03-2017 PHYSICIANS PAIN IN EMERGENCY MEDI R197 DIARRHEA 03-03-2017 PHYSICIANS UNSPECIFIED IN EMERGENCY [facility] R9431 ABNORMAL 03-03-2017 [facility] IOGRAM MEDICAL G I10 ESSENTIAL 02-27-2017 [facility] PRIMARY MEDICAL HYPERTENSIO ASSOCIATES N Z0000 ENCOUNTER 02-27-2017 [facility] ADULT MEDICAL MED EXAM ASSOCIATES W/O ABNORMAL FIND Z720 TOBACCO USE 02-27-2017 [facility] MEDICAL ASSOCIATES Z7689 PERSONS 02-27-2017 [facility] ENCOUNTER MEDICAL HEALTH SRVC ASSOCIATES OTH CIRCUMSTANC ES K439 VENTRAL 02-24-2017 [facility] HERNIA Surgery WITHOUT OBSTRUCTION OR GANGRENE J441 CHRONIC 01-19-2017 [facility] DZ W/EXACERBAT ION R000 TACHYCARDIA 01-18-2017 [facility] UNSPECIFIED MEDICAL G R0602 SHORTNESS 01-18-2017 [facility]YSICIANS OF BREATH IN EMERGENCY [facility] R0789 OTHER CHEST 01-18-2017 PHYSICIANS PAIN IN EMERGENCY MEDI R05 COUGH 12-30-2016 DOMINIK MERY SHORT & MORILLO P R0600 DYSPNEA 12-30-2016 PHYSICIANS UNSPECIFIED IN EMERGENCY [facility] R1011 RIGHT UPPER 12-30-2016 PHYSICIANS QUADRANT IN PAIN EMERGENCY MEDI R509 FEVER 12-30-2016 DOMINIK UNSPECIFIED MERY SHORT & MORILLO P R1032 LEFT LOWER 10-06-2016 DOMINIK QUADRANT MERY PAIN SHORT & MORILLO P Medications Na ND Rx Da Fi Fi [...] 50 1- 8- 00 01 RE ve [place] 26 20 20 40 EN [place] 40 [...] 84 8- 4- 00 06 ER ve [place] 77 20 20 46 [place] 50 17 17 12 PH -H [address] MA Z CY 20 L -2 5 -7 MG 58 TA B ME 59 06 07 21 6 00 WA Ac TH 74 -1 -0 .0 00 LG ti YL 60 4- 7- 00 01 RE ve [place] 00 20 20 38 EN ED 10 [...] 84 3- 0- 00 06 ER ve [place] 77 20 20 46 [place] 50 17 17 12 PH -H [address] MA Z CY 20 L -2 5 -7 MG 58 TA B BE 00 04 05 30 30 00 KR Ac NA 37 -2 -2 .0 00 OG ti ZE 84 9- 6- 00 06 ER ve NJ 77 20 20 46 [place] 50 17 17 12 PH -H [address] MA Z CY 20 L -2 5 -7 MG 58 TA B BE 00 04 05 30 30 00 KR Ac NA 37 -0 -0 .0 00 OG ti ZE 84 6- 5- 00 06 ER ve NJ 77 20 20 46 [place] 50 17 [...] ER ve LO 13 20 20 44 [place] 71 17 17 70 PH AM 0 23 AR MA 20 CY L MG -7 TA 58 BL ET BE 00 02 03 30 30 00 KR Ac NA 37 -1 -1 .0 00 OG ti ZE 84 3- 0- 00 06 ER ve NJ 77 20 20 44 [place] 50 17 [...] Procedures Procedure DOS Code Location Performer Comment AMBULANCE A0429 [facility] BLS EMERGENCY TRANSPORT GROUND A0425 [facility] [place] [address] DOMINIK ANTHONY ABDOMEN & 7 MERY PELVIS SHORT & W/CONTRAS MORILLO P T [facility] [address] [facility] DISCHARGE 7 Surgery DAY MANAGEMEN T 30 MIN/< [place] [address] DOMINIK BURNHAM GUIDANCE 7 MERY NEEDLE SHORT & PLACEMENT MORILLO P IMG S&I SBSQ 12977 [facility] 7 Surgery CARE/DAY 15 MINUTES PUNCTURE 07095 DOMINIK BURNHAM ASPIRATIO 7 MERY N ABSCESS SHORT & HEMATOMA MORILLO P BULLA/CYS T INITIAL 19512 [facility] 7 Surgery CARE/DAY 30 MINUTES RADEX 44045 DOMINIK ARGUETA ABDOMEN 1 7 MERY SHORT & [place] [address] DOMINIK ARGUETA ABDOMEN & 7 MERY PELVIS SHORT & W/CONTRAS MORILLO P T MATERIAL AMBULANCE A0429 [facility] 7 [facility] BLS EMERGENCY TRANSPORT GROUND A0425 [facility] 7 CO EMS CO EMS PER STATUTE MILE GROUND A0425 [facility] 7 CO EMS CO EMS PER STATUTE MILE AMB A0427 [facility] 7 CO EMS [facility] EMS ALS EMERGENCY TRANSPORT LEVEL 1 LAPS ABD 51196 [facility] PRTM&OMEN 7 Surgery MARCUS DX W/WO SPEC BR/WA SPX ANESTHESI 12662 [facility] MCKEON JR A 7 NE HEALTH INTRAPERI MEDICAL TONEAL G LOWER ABD W/LAPS NOS INITIAL 67226 [facility] 7 Surgery CARE/DAY 50 MINUTES RADIOLOGI 60607 DOMINIK HUNTERLIE C 7 MERY EXAMINATI SHORT & ON CHEST MORILLO P [place] FRONTAL ECG 07712 PHYSICIAN TONA ROUTINE 7 S IN ECG EMERGENCY W/LEAST MEDI 12 LDS I&[place] [address] DOMINIK ENRIQUEDEN ABDOMEN & 7 MERY PELVIS SHORT & W/CONTRAS MORILLO P T MATERIAL BLOOD 57791 [facility] COMMUNITY COUNT 7 MEDICAL MEDICAL COMPLETE ASSOCIATE ASSOCIATE AUTO&AUTO S S DIFRNTL WBC COLLECTIO 25254 [facility] DIPESH N VENOUS 7 MEDICAL BLOOD ASSOCIATE VENIPUNCT S URE COMPREHEN 60850 [facility] BERUMEN SIVE 7 MEDICAL METABOLIC ASSOCIATE PANEL S 25 25766 [facility] BERUMEN HYDROXY 7 MEDICAL INCLUDES ASSOCIATE FRACTIONS S IF PERFORMED LIPID 36766 [facility] PANEL 7 CHIEF LIBRARIAN BRANCH S HEMOGLOBI 73120 [facility] N 7 MEDICAL GLYCOSYLA ASSOCIATE LILIYA A1C S LAPS 70806 [facility] REPAIR 7 Surgery HERNIA EXCEPT INCAL/ING UN REDUCIBLE ANES LWR 12391 [facility] LAY ABD 7 NE HEALTH VENTRAL & [place] [address] DOMINIK TREMAINE ABDOMEN & 7 MERY PELVIS SHORT & W/CONTRAS MORILLO P T MATERIAL INITIAL 26390 [facility] 7 PHYSICIAN CARE/DAY S, LLC 70 MINUTES 3D 27277 DOMINIK ODALIS RENDERING 7 MERY W/INTERP SHORT & & MORILLO P POSTPROCE SS SUPERVISI ON ECG 90758 [facility] STIDAM ROUTINE 7 NE HEALTH ECG MEDICAL W/LEAST G 12 LDS I&R ONLY GROUND A0425 [facility] MILEAGE 7 CO EMS CO EMS PER STATUTE MI[place] CT THORAX 27724 DOMINIK JACOBO 7 MERY W/CONTRAS SHORT & T MORILLO P MATERIAL AMB A0427 [facility]LE SERVICE 7 CO EMS CO EMS ALS EMERGENCY TRANSPORT LEVEL 1 RADIOLOGI 30579 DOMINIK CARLOS C EXAM 7 MERY CHEST 2 SHORT & VIEWS MORILLO P FRONTAL&[place] [address] DOMINIK TREMAINE ABDOMEN & 7 MERY PELVIS SHORT & W/CONTRAS MORILLO P T MATERIAL LIPID 09670 [facility] [place] [employer] BLOOD 31909 [facility] COUNT 7 [place], COMPLETE [employer] INC[employer] AUTO&AUTO DIFRNTL WBC COMPREHEN 16684 [facility] SIVE 7 [place], [employer] INC[employer] PANEL RADEX ABD [address]20 DOMINIK HAYCRAFT COMPL 7 MERY AQT ABD SHORT & W/S/E/D MORILLO P VIEWS 1 VIEW CH Encounters Encounter Start End Date Code Location Performer Type Date EMERGENCY 96991 PHYSICIAN NU 7 7 S IN DEPARTMEN EMERGENCY T VISIT MEDI MODERATE SEVERITY EMERGENCY 31829 PHYSICIAN JONN DEPT 7 7 S IN VISIT EMERGENCY HIGH MEDI SEVERITY& THREAT FUN EMERGENCY 54358 PHYSICIAN EILEEN DEPT 7 7 S IN VISIT EMERGENCY HIGH MEDI SEVERITY& THREAT FUNJ EMERGENCY 46497 PHYSICIAN TONA DEPT 7 7 S IN VISIT EMERGENCY HIGH MEDI SEVERITY& THREAT FUN PERIODIC 04732 [facility] PREVENTIV 7 7 MEDICAL E MED EST ASSOCIATE PATIENT S 40-64YRS EMERGENCY 20814 PHYSICIAN KEREN DEPT 7 7 S IN VISIT EMERGENCY HIGH MEDI SEVERITY& THREAT FUNJ EMERGENCY 90705 PHYSICIAN LEÓN 7 7 S IN DEPARTMEN EMERGENCY T VISIT MEDI HIGH/URGE NT SEVERITY
--- OUTSIDE RECORDS SUMMARY | 2017-05-01 21:45 | External Medical Summary Rpt | CCD ---
Author Author , DONYA Organization DONYA Address Unknown Phone [email or web address] Care Team Providers Care Evp General Counsel Name Role Phone NU JUDGE Unavailable Unavailable BUDD, BUDD Unavailable Unavailable [facility], Unavailable Unavailable [facility] Unavailable Unavailable [facility], [facility] TREMAINE, TREMAINE Unavailable Unavailable ROB, ROB Unavailable Unavailable TONA, TONA Unavailable Unavailable GOSHORN, GOSHORN Unavailable Unavailable BERUMEN, BERUMEN Unavailable Unavailable HAYCRAFT, HAYCRAFT Unavailable Unavailable ARELLANO, ARELLANO Unavailable Unavailable STEFFI, STEFFI Unavailable Unavailable TREMAINE, TREMAINE Unavailable Unavailable [facility] Unavailable Unavailable MEDICAL G, [facility] MEDICAL G ARGUETA, ARGUETA Unavailable Unavailable [facility] [employer] Unavailable Unavailable [facility] [employer]. LAY, LAY Unavailable Unavailable LULA, LULA Unavailable [...] P ULRF Surgery, ULRF Unavailable Unavailable Surgery [facility], Unavailable Unavailable [facility], [facility], [facility] ODALIS JACOBO Unavailable Unavailable Purpose Continuity of Care Document - 08-27-2016 through 2016 Problems Code Diagnosis DOS Provider Status R109 UNSPECIFIED 03-18-2017 PHYSICIANS ABDOMINAL IN PAIN EMERGENCY MEDI [id number] CUTANEOUS 03-15-2017 PHYSICIANS ABSCESS OF IN ABDOMINAL EMERGENCY WALL MEDI N281 CYST OF 03-15-2017 DOMINIK KIDNEY MERY ACQUIRED SHORT & OMRILLO P N2889 OTHER 03-15-2017 DOMINIK SPECIFIED MERY DISORDERS SHORT & OF KIDNEY MORILLO P AND URETER P16347 CELLULITIS 2017 DOMINIK OF TRUNK MERY UNSPECIFIED SHORT & MORILLO P R110 NAUSEA 2017 ULRF Surgery R1110 VOMITING 2017 [facility] UNSPECIFIED Surgery B7596SZ DISRUPT 2017 [facility] INTERNAL Surgery OPERATION WOUND NEC INITIAL ENC 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 & UNSPECIFIED MORILLO P R1084 GENERALIZED 03-07-2017 PHYSICIANS ABDOMINAL IN PAIN EMERGENCY MEDI R112 NAUSEA WITH 03-07-2017 PHYSICIANS VOMITING IN UNSPECIFIED EMERGENCY MEDI R140 ABDOMINAL 03-07-2017 DOMINIK DISTENSION MERY GASEOUS SHORT & MORILLO P L7634 POSTPROC 03-04-2017 [facility] & SUBQ MEDICAL G TISS FLW OTH PROC D44085 POSTPROC 03-04-2017 [facility] SEROMA MSK Surgery STR FLW MUSCULOSKEL SYS PROC K429 UMBILICAL 03-03-2017 DOMINIK HERNIA MERY WITHOUT SHORT & OBSTRUCTION MORILLO P OR GANGRENE R079 CHEST PAIN 03-03-2017 DOMINIK UNSPECIFIED MERY SHORT & MORILLO P R1013 EPIGASTRIC 03-03-2017 PHYSICIANS PAIN IN EMERGENCY MEDI R197 DIARRHEA 03-03-2017 PHYSICIANS UNSPECIFIED IN EMERGENCY [facility] R9431 ABNORMAL 03-03-2017 [facility] IOGRAM MEDICAL G I10 ESSENTIAL 02-27-2017 [facility] PRIMARY MEDICAL HYPERTENSIO ASSOCIATES N Z0000 ENCOUNTER 02-27-2017 [facility] ADULT MEDICAL MED EXAM ASSOCIATES W/O ABNORMAL FIND Z720 TOBACCO USE 02-27-2017 [facility] MEDICAL ASSOCIATES Z7689 PERSONS 02-27-2017 [facility] ENCOUNTER MEDICAL HEALTH [facility] ASSOCIATES OTH CIRCUMSTANC ES K439 VENTRAL 02-24-2017 [facility] HERNIA Surgery WITHOUT OBSTRUCTION OR GANGRENE J441 CHRONIC 01-19-2017 [facility] DZ W/EXACERBAT ION R000 TACHYCARDIA 01-18-2017 [facility] UNSPECIFIED MEDICAL G R0602 SHORTNESS 01-18-2017 PHYSICIANS OF BREATH IN EMERGENCY [facility] R0789 OTHER CHEST 01-18-2017 PHYSICIANS PAIN IN EMERGENCY MEDI R05 COUGH 12-30-2016 DOMINIK MERY SHORT & MORILLO P R0600 DYSPNEA 12-30-2016 PHYSICIANS UNSPECIFIED IN EMERGENCY [facility] R1011 RIGHT UPPER 12-30-2016 PHYSICIANS QUADRANT [...] 50 1- 8- 00 01 RE ve MD 26 20 20 40 EN [place] 40 [...] 84 8- 4- 00 06 ER ve MD 77 20 20 46 [place] 50 17 17 12 PH -H [address] MA Z CY 20 L -2 5 -7 MG 58 TA B ME 59 06 07 21 6 00 WA Ac TH 74 -1 -0 .0 00 LG ti YL 60 4- 7- 00 01 RE ve MD 00 20 20 38 EN ED 10 [...] 5 36 #9 CE 22 TA 5 KS NO PH EN 5- 32 5 BE 00 06 06 30 30 00 KR Ac NA 37 -0 -3 .0 00 OG ti ZE 84 3- 0- 00 06 ER ve MD 77 20 20 46 [place] 50 17 17 12 PH -H [address] MA Z CY 20 L -2 5 -7 MG 58 TA B BE 00 04 05 30 30 00 KR Ac NA 37 -2 -2 .0 00 OG ti ZE 84 9- 6- 00 06 ER ve MD 77 20 20 46 [place] 50 17 17 12 PH -H [address] MA Z CY 20 L -2 5 -7 MG 58 TA B BE 00 04 05 30 30 00 KR Ac NA 37 -0 -0 .0 00 OG ti ZE 84 6- 5- 00 06 ER ve MD 77 20 20 46 [place] 50 17 [...] ER ve LO 13 20 20 44 MD 71 17 17 70 PH AM 0 23 AR MA 20 CY L MG -7 TA 58 BL ET BE 00 02 03 30 30 00 KR Ac NA 37 -1 -1 .0 00 OG ti ZE 84 3- 0- 00 06 ER ve MD 77 20 20 44 [place] 50 17 [...] DOS Code Location Performer Comment AMBULANCE A0429 [facility] BLS EMERGENCY TRANSPORT GROUND A0425 [facility] 7 [place] [address] DOMINIK ANTHONY ABDOMEN & 7 MERY PELVIS SHORT & W/CONTRAS MORILLO P T [facility] 66129 [facility] DISCHARGE 7 Surgery DAY MANAGEMEN T 30 MIN/< [place] [address] DOMINIK BURNHAM GUIDANCE 7 MERY NEEDLE SHORT & PLACEMENT MORILLO P IMG S&I SBSQ 87950 [facility] 7 Surgery CARE/DAY 15 MINUTES PUNCTURE 54551 DOMINIK BURNHAM ASPIRATIO 7 MERY N ABSCESS SHORT & HEMATOMA MORILLO P BULLA/CYS T INITIAL 46712 [facility] 7 Surgery CARE/DAY 30 MINUTES RADEX 12984 DOMINIK ARGUETA ABDOMEN 1 7 MERY SHORT & [place]TER[place] [address] DOMINIK ARGUETA ABDOMEN & 7 MERY PELVIS SHORT & W/CONTRAS MORILLO P T MATERIAL AMBULANCE A0429 [facility] 7 CO EMS CO EMS BLS EMERGENCY TRANSPORT GROUND A0425 [facility] 7 CO EMS CO EMS PER STATUTE MILE GROUND A0425 [facility] 7 CO EMS CO EMS PER STATUTE MILE AMB A0427 [facility] 7 CO EMS CO EMS ALS EMERGENCY TRANSPORT LEVEL 1 LAPS ABD 17285 [facility] PRTM&OMEN 7 Surgery MARCUS DX W/WO SPEC BR/WA SPX ANESTHESI 72583 [facility] MCKEON JR A 7 NE HEALTH INTRAPERI MEDICAL TONEAL G LOWER ABD W/LAPS NOS INITIAL 55249 [facility] 7 Surgery CARE/DAY 50 MINUTES RADIOLOGI 31097 DOMINIK HUNTERLIE C 7 MERY EXAMINATI SHORT & ON CHEST MORILLO P [place] FRONTAL ECG 83259 PHYSICIAN TONA ROUTINE 7 S IN ECG EMERGENCY W/LEAST MEDI 12 LDS I&[place] [address] DOMINIK ENRIQUEDEN ABDOMEN & 7 MERY PELVIS SHORT & W/CONTRAS MORILLO P T MATERIAL BLOOD 90613 [facility] COMMUNITY COUNT 7 MEDICAL MEDICAL COMPLETE ASSOCIATE ASSOCIATE AUTO&AUTO S S DIFRNTL WBC COLLECTIO 30756 [facility] DIPESH N VENOUS 7 MEDICAL BLOOD ASSOCIATE VENIPUNCT S URE COMPREHEN 65096 [facility] BERUMEN SIVE 7 MEDICAL METABOLIC ASSOCIATE PANEL S 25 28423 [facility] BERUMEN HYDROXY 7 MEDICAL INCLUDES ASSOCIATE FRACTIONS S IF PERFORMED LIPID 98832 [facility] PANEL 7 IT SENIOR ANALYST S HEMOGLOBI 32413 [facility] N 7 MEDICAL GLYCOSYLA ASSOCIATE LILIYA A1C S LAPS 46355 [facility] REPAIR 7 Surgery HERNIA EXCEPT INCAL/ING UN REDUCIBLE ANES LWR 12007 [facility] LAY ABD 7 NE HEALTH VENTRAL & [place]ICAL [place] [address] DOMINIK TREMAINE ABDOMEN & 7 MERY PELVIS SHORT & W/CONTRAS MORILLO P T MATERIAL INITIAL 96974 [facility] 7 PHYSICIAN CARE/DAY S, LLC 70 MINUTES 3D 59949 DOMINIK ODALIS RENDERING 7 MERY W/INTERP SHORT & & MORILLO P POSTPROCE SS SUPERVISI ON ECG 28734 [facility] STIDAM ROUTINE 7 NE HEALTH ECG MEDICAL W/LEAST G 12 LDS I&R ONLY GROUND A0425 [facility] DA[facility] MILEAGE 7 CO EMS CO EMS PER STATUTE MILE CT THORAX 12293 DOMINIK JACOBO 7 MERY W/CONTRAS SHORT & T MORILLO P MATERIAL AMB A0427 [facility] DAIGLE SERVICE 7 CO EMS CO EMS ALS EMERGENCY TRANSPORT LEVEL 1 RADIOLOGI 62590 DOMINIK CARLOS C EXAM 7 MERY CHEST 2 SHORT & VIEWS MORILLO P FRONTAL&[place] [address] DOMINIK TREMAINE ABDOMEN & 7 MERY PELVIS SHORT & W/CONTRAS MORILLO P T MATERIAL LIPID 70152 [facility] PANEL 7 [place] [employer] BLOOD 99386 [facility] COUNT 7 [place], COM[employer]TE [employer] INC. AUTO&AUTO DIFRNTL WBC COMPREHEN 83126 [facility] SIVE 7 [place], [employer] INC[employer] PANEL [place] ABD [address]331 DOMINIK HAYCRAFT COMPL 7 MERY AQT ABD SHORT & W/S/E/D MORILLO P VIEWS 1 VIEW CH Encounters Encounter Start End Date Code Location Performer Type Date EMERGENCY 81665 PHYSICIAN NU 7 7 S IN DEPARTMEN EMERGENCY T VISIT MEDI MODERATE SEVERITY EMERGENCY 39233 PHYSICIAN JONN DEPT 7 7 S IN VISIT EMERGENCY HIGH MEDI SEVERITY& THREAT FUN EMERGENCY 45619 PHYSICIAN EILEEN DEPT 7 7 S IN VISIT EMERGENCY HIGH MEDI SEVERITY& THREAT FUNJ EMERGENCY 91095 PHYSICIAN TONA DEPT 7 7 S IN VISIT EMERGENCY HIGH MEDI SEVERITY& THREAT FUN PERIODIC 61939 COMMUNITY PREVENTIV 7 7 MEDICAL E MED EST ASSOCIATE PATIENT S 40-64YRS EMERGENCY 11768 PHYSICIAN KEREN DEPT 7 7 S IN VISIT EMERGENCY HIGH MEDI SEVERITY& THREAT FUNJ EMERGENCY 91545 PHYSICIAN LEÓN 7 7 S IN DEPARTMEN EMERGENCY T VISIT MEDI HIGH/URGE NT SEVERITY
--- OUTSIDE RECORDS SUMMARY | 2017-05-01 21:46 | External Medical Summary Rpt ---
Author Author DONYA Mustafa, [employer] Organization [employer] Address Unknown Phone Unavailable
--- OUTSIDE RECORDS SUMMARY | 2017-05-01 21:46 | External Medical Summary Rpt | CCD ---
Demographics Preferred Language Ivorian Marital Status Unknown Denominational Affiliation Unknown Race Unknown Ethnic Group Unknown Author Author , DONYA NAQVI Address Unknown Phone Immunization Unable to retrieve immunization data due to connection failure with Immunization Registry. Please try again later.
--- OUTSIDE RECORDS SUMMARY | 2017-05-01 21:46 | External Medical Summary Rpt | CCD ---
Demographics Preferred Language Dutch Marital Status Unknown Hoahaoism Affiliation Unknown Race Unknown Ethnic Group Unknown Author Author , DONYA NAQVI Address Unknown Phone Immunization Unable to retrieve immunization data due to connection failure with Immunization Registry. Please try again later.
== END 2017-04-26 20:44 | disposition home or self-care (01) ==
LOC: ER 17:37
PROVIDERS: Emergency Medicine
DX: R19.7 Diarrhea, unspecified (principal); K43.9 Ventral hernia without obstruction or gangrene; F17.210 Nicotine dependence, cigarettes, uncomplicated
CPT/HCPCS: J1335; Q9967

== ENCOUNTER 2017-04-30 13:22 | Observation (INO) | payer MEDICAID ==
[~2017-04-30] VITALS: Ht 182.9 cm; Wt 98.1 kg
[~2017-04-30 13:22] MED LIST: BENTYL10 MG PO; CIPRO 500MG TA500 MG PO; FLAGYL500 M1 PO; NOMEDS XX
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
[2017-04-30 14:13] LABS: HEMOGLOBIN 17.4 g/dL (14.1-18.0)
[2017-04-30 14:14] LABS: LYMPH # 1.6 K/mm3 (0.7-4.5)
[2017-04-30 14:33] LABS: BUN 6 mg/dL (7-18)
[2017-04-30 14:39] LABS: GFR (ESTIMATED) 90 ML/MIN (>60)
--- NOTE | 2017-04-30 14:43 | RADIOLOGY REPORT PS360 ---
ABD ACUTE(MUL VIEWS) HISTORY: CHEST PIAN X 2 HOURS AND ABD PAIN X 6 DAYS ORDERING PHYSICIAN: George Villalobos MD PATIENT AGE: 47 years COMPARISON: None FINDINGS: Unremarkable cardiovascular structures. No lobar consolidation or collapse is evident. Increased density is present along the cardiac apex on the left and is consistent with a pericardial fat pad Upright and supine views of the abdomen show a nonspecific bowel gas pattern with nondistended gas-filled loops of small bowel. No intestinal obstruction or free air. IMPRESSION: Nonspecific bowel gas pattern. There are nondistended gas-filled loops of small bowel which is nonspecific but could be seen with enteritis.
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
[2017-04-30 18:12] VITALS: BP 132/85
[2017-04-30 18:21] VITALS: BP 125/90
[2017-04-30] MEDS ORDERED: LISINOPRIL HCTZ1 TAB PO (18:27)
[2017-04-30 19:53] VITALS: BP 120/76
[2017-04-30 20:15] VITALS: BP 120/76
[2017-04-30 23:44] VITALS: BP 114/83
[2017-05-01 04:07] VITALS: BP 116/77
--- NOTE | 2017-05-01 07:32 | PHARMACY CLINIC NOTE ---
Patient Demographics Patient Demographics Admission date: 04/30/17 Date: 05/01/17 Time: 0731 Allergies Coded Allergies: No Known Allergies (04/30/17) HEIGHT- FT: 6 IN: 0.00 K.091 VTE General Information Labs: Laboratory Tests 04/30 1350 Hematology Hgb (14.1 - 18.0 g/dL) 17.4 Hct (42.0 - 52.0 %) 51.7 Plt Count (142 - 424 K/mm3) 177 Disclaimer The following section includes nursing documentation that has been pulled in for pharmacy review. Patient's VTE score: 1 Patient's VTE Risk: VERY LOW RISK Clinical trial participant? No VTE prophylaxis [id number] VTE prophylaxis ordered? Yes Type of prophylaxis/treatment: Lovenox at 0731
[2017-05-01] MEDS ORDERED: BENAZEPRIL HCL-1 TA1 PO (08:50)
[2017-05-01 09:10] VITALS: BP 141/73
[2017-05-01 09:18] VITALS: BP 141/73
--- NOTE | 2017-05-01 09:32 | RADIOLOGY REPORT PS360 ---
History and Indications: Hypertension, hyperlipidemia, tobacco use, family history, chest pain, shortness of breath and palpitations Procedure: Patient received a 0.4 mg Lexiscan, resting heart rate was 59 bpm resting blood pressure 115/80, with Lexiscan maximum heart rate achieved was 100 bpm which is less than 85% of the maximum predicted heart rate and a blood pressure was 128/73. With Lexiscan patient complained of shortness of breath. Electrocardiogram: Resting electrocardiogram showed sinus rhythm right ventricular conduction delay, rightward axis nonspecific ST-T changes. With Lexiscan there is less than 1.[address] segment depression noted from the baseline EKG, nonspecific T wave changes were also seen. The EKG portion of the Lexiscan Myoview is nondiagnostic. Cardiac stress and resting SPECT images: Cardiac stress and rest SPECT images were obtained using technetium 99 Myoview and 10.8 mCi at rest and 32.8 mCi at stress, gated SPECT further analysis of segmental wall motion and calculation of ejection fraction also done. Cardiac stress and rest images show a mild fixed defect in the inferior wall with normal contractility in the gated SPECT is likely secondary to soft tissue attenuation from the diaphragm, no reversible ischemia seen. Computer derived ejection fraction is 52% with no obvious regional wall motion abnormality, the right ventricle is mildly enlarged with normal contractility. Conclusion: 1. The EKG portion of the Lexiscan Myoview is nondiagnostic. 2. No obvious scintigraphic evidence of reversible ischemia seen, a fixed defect in the inferior wall with normal contractility on the gated SPECT is likely secondary to soft tissue attenuation. Computer derived ejection fraction is 52% with no obvious regional wall motion abnormality, right ventricle is mildly enlarged with normal contractility
[2017-05-01 11:11] VITALS: BP 112/82
[2017-05-01 12:41] VITALS: BP 112/82
--- NOTE | 2017-05-01 18:12 | Discharge Summary ---
Demographics Admit date: 04/30/17 Discharge date: 05/01/17 Discharge diagnoses Problem List 1. Hyperlipidemia 2. Tobacco use 3. Chest pain History of present illness History of present illness 47-year-old male with history of hypertension, hyperlipidemia, cigarette smoker for 35 years presented to the emergency department with onset of sharp LEFT parasternal chest pain earlier in the day. Patient is recovering from surgery to repair abdominal hernias. He has been experiencing RIGHT lower quadrant discomfort for which she was seen in the emergency department earlier in the week (April 26). Patient tells me this morning he was having similar RIGHT lower quadrant pain when all of a sudden he developed a sharp LEFT parasternal chest pain described as stabbing. Pain was unrelenting and he presented to the emergency department where he continues to have chest pain despite use of nitroglycerin and morphine. Pain radiates along the LEFT pectoral and he feels some discomfort in the back. He denies nausea. He will have brief episodes, lasting 2-3 seconds, of sensation as if he does have difficulty catching his breath. He had a single episode of vomiting that occurred immediately after onset of chest pain but has not had any further emesis. Patient tells me he has hypertension for which he has previously taken medicine but is currently in between primary care providers. He also has been identified as having high cholesterol but his previous physician was giving him time to bring his cholesterol down through dietary changes. The patient currently lives in [place] and has an appointment soon with her primary care provider in the [facility]. He ruled out for [place] with serial cardiac enzmes. ON May 01 he underwent cardiolite stress testing which was negative for ischemia. He was discharged and will follow up with his PCP for other causes of chest pain. Medications Medications: Discharge meds are as noted. Follow up Follow up in office in: as scheduled with: AZALIA BOSWELL at 1811
--- OUTSIDE RECORDS SUMMARY | 2017-05-02 17:22 | External Medical Summary Rpt | CCD ---
Author Author , DONYA Organization DONYA Address Unknown Phone [email or web address] Care Team Providers Care Clammer Name Role Phone NU, JUDGE Unavailable Unavailable BUDD, BUDD Unavailable Unavailable [facility], Unavailable Unavailable [facility] Unavailable Unavailable [facility] TREMAINE, TREMAINE Unavailable Unavailable ROB, ROB Unavailable Unavailable TONA, TONA Unavailable Unavailable GOSHORN, GOSHORN Unavailable Unavailable BERUMEN, BERUMEN Unavailable Unavailable HAYCRAFT, HAYCRAFT Unavailable Unavailable ARELLANO, ARELLANO Unavailable Unavailable STEFFI, STEFFI Unavailable Unavailable TREMAINE, TREMAINE Unavailable Unavailable [facility] Unavailable Unavailable MEDICAL G, [facility] ELLIE ARGUETA Unavailable Unavailable [facility] Unavailable Unavailable [facility] LAY, LAY Unavailable Unavailable LULA, LULA Unavailable [...] P [facility] Surgery, [facility] Unavailable Unavailable Surgery [facility], Unavailable Unavailable [facility], [facility], [facility] ODALIS JACOBO Unavailable Unavailable Purpose Continuity of Care Document - 08-27-2016 through 2016 Problems Code Diagnosis DOS Provider Status R109 UNSPECIFIED 03-18-2017 PHYSICIANS ABDOMINAL IN PAIN EMERGENCY MEDI U56054 CUTANEOUS 03-15-2017 PHYSICIANS ABSCESS OF IN ABDOMINAL EMERGENCY WALL MEDI N281 CYST OF 03-15-2017 DOMINIK KIDNEY MERY ACQUIRED SHORT & MORILLO P N2889 OTHER 03-15-2017 DOMINIK SPECIFIED MERY DISORDERS SHORT & OF KIDNEY MORILLO P AND URETER Z33114 CELLULITIS 2017 DOMINIK OF TRUNK MERY UNSPECIFIED SHORT & MORILLO P R110 NAUSEA 2017 [facility] Surgery R1110 VOMITING 2017 [facility] UNSPECIFIED Surgery [id number] DISRUPT 2017 [facility] INTERNAL Surgery OPERATION WOUND NEC INITIAL ENC 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 & UNSPECIFIED MORILLO P R1084 GENERALIZED 03-07-2017 PHYSICIANS ABDOMINAL IN PAIN EMERGENCY MEDI R112 NAUSEA WITH 03-07-2017 PHYSICIANS VOMITING IN UNSPECIFIED EMERGENCY MEDI R140 ABDOMINAL 03-07-2017 DOMINIK DISTENSION MERY GASEOUS SHORT & MORILLO P L7634 POSTPROC 03-04-2017 [facility] SKIN HEALTH & SUBQ MEDICAL G TISS FLW OTH PROC C56387 POSTPROC 03-04-2017 [facility] Surgery STR FLW MUSCULOSKEL SYS PROC K429 UMBILICAL 03-03-2017 DOMINIK HERNIA MERY WITHOUT SHORT & OBSTRUCTION MORILLO P OR GANGRENE R079 CHEST PAIN 03-03-2017 DOMINIK UNSPECIFIED MERY SHORT & MORILLO P R1013 EPIGASTRIC 03-03-2017 PHYSICIANS PAIN IN EMERGENCY MEDI R197 DIARRHEA 03-03-2017 PHYSICIANS UNSPECIFIED IN EMERGENCY [facility] R9431 ABNORMAL 03-03-2017 [facility] IOGRAM MEDICAL G I10 ESSENTIAL 02-27-2017 [facility] PRIMARY MEDICAL HYPERTENSIO ASSOCIATES N Z0000 ENCOUNTER 02-27-2017 [facility] ADULT MEDICAL MED EXAM ASSOCIATES W/O ABNORMAL FIND Z720 TOBACCO USE 02-27-2017 [facility] MEDICAL ASSOCIATES Z7689 PERSONS 02-27-2017 [facility] ENCOUNTER MEDICAL HEALTH [facility] ASSOCIATES OT CIRCUMSTANC ES K439 VENTRAL 02-24-2017 [facility] HERNIA Surgery WITHOUT OBSTRUCTION OR GANGRENE J441 CHRONIC 01-19-2017 [facility] DZ W/EXACERBAT ION R000 TACHYCARDIA 01-18-2017 [facility] UNSPECIFIED MEDICAL G R0602 SHORTNESS 01-18-2017 PHYSICIANS OF BREATH IN EMERGENCY [facility] R0789 OTHER CHEST 01-18-2017 PHYSICIANS PAIN IN EMERGENCY MEDI R05 COUGH 12-30-2016 DOMINIK MERY SHORT & MORILLO P R0600 DYSPNEA 12-30-2016 PHYSICIANS UNSPECIFIED IN EMERGENCY MEDI R1011 RIGHT UPPER 12-30-2016 PHYSICIANS QUADRANT IN PAIN EMERGENCY MEDI R509 FEVER 12-30-2016 DOMINIK UNSPECIFIED MERY SHORT & MORILLO P R1032 LEFT LOWER 10-06-2016 DOMINIK QUADRANT MERY PAIN SHORT & MORILLO P R10.32 Left lower quadrant pain Allergies, Adverse Reactions, Alerts Clinical Alert Notifications [...] 5 36 #9 CE 22 TA 5 DE NO PH EN 5- 32 5 BE [...] 50 L MG -7 58 CA P Results Labs Lab Lab Date Result Refere Interp Status Commen Order Detail nces retati t Range on CBC w auto diff (04-26-2017 18:10) Automat = 0.1 0-0.2 complet ed 017 K/MM3 ed blood 18:10 basophi l count (count/ vo Baso % = 0.7 % 0.1-2.0 complet 017 ed 18:10 Automat = 0.3 0.0-0.4 complet ed 017 K/mm3 ed blood 18:10 eosinop hil count Automat = 2.9 % 0.1-12. complet ed 017 0 ed blood 18:10 eosinop hils/10 0 leukocy t Blood = 6.5 1.3-8.0 complet granulo 017 K/mm3 ed cytes 18:10 automat ed count (numb Granulo = 69.3 37.0-80 complet cyte 017 % .0 ed percent 18:10 age Blood = 50.3 42.0-52 complet hematoc 017 % .0 ed rit 18:10 (volume fractio n) Blood = 17.1 14.1-18 complet hemoglo 017 g/dL .0 ed bin 18:10 measure ment (mass/v olum Absolut = 2.0 0.7-4.5 complet e 017 K/mm3 ed lymphoc 18:10 yte count Lymphoc = 21.5 10-50 complet yte 017 % ed count, 18:10 blood, automat ed Mean = 32.6 27-31.2 complet corpusc 017 pg ed ular 18:10 hemoglo bin (MCH) determ Automat = 34.0 31.8-35 complet ed 017 g/dl .4 ed erythro 18:10 cyte mean corpusc ular h Automat = 96.0 82.2-97 complet ed 017 fl .8 ed erythro 18:10 cyte mean corpusc ular v Absolut = 0.5 0.1-1.0 complet e 017 K/mm3 ed monocyt 18:10 e count [place] % = 5.6 % 1.7-9.3 complet 017 ed 18:10 Automat = 9.6 7.4-10. complet ed 017 fl 4 ed blood 18:10 platele t mean volume gera Blood = 212 142-424 complet platele 017 K/mm3 ed t count 18:10 Red = 5.25 4.6-6.2 complet blood 017 M/mm3 ed cell 18:10 count Automat = 12.8 11.5-17 complet ed 017 % .5 ed erythro 18:10 cyte distrib ution width Blood = 9.4 4.8-10. complet leukocy 017 K/MM3 8 ed adalberto 18:10 count (number /volume ) Comprehensive metabolic panel (04-26-2017 18:10) Serum = 1.4 1.1-1.8 complet or 017 ed plasma 18:10 albumin /globul in mass ra Serum = 4.2 3.4-5.0 complet or 017 gm/dL ed plasma 18:10 albumin measure ment (mas Serum = 69 46-116 complet or 017 U/L ed plasma 18:10 alkalin e phospha tase gera Serum = 0.6 0.2-1.0 complet or 017 mg/dL ed plasma 18:10 total bilirub in measure m Serum = 8 7-18 complet or 017 mg/dL ed plasma 18:10 urea nitroge n measure men Serum = 9.1 8.5-10. complet or 017 mg/dL 1 ed plasma 18:10 calcium measure ment (mas Serum = 105 98-107 complet or 017 mmoL/L ed plasma 18:10 chlorid e measure ment (mo Carbon = 30 21.0-32 complet dioxide 017 mmoL/L .0 ed 18:10 measure ment Serum = 1.0 0.70-1. complet or 017 mg/dL 30 ed plasma 18:10 creatin ine measure ment ( Estimat = 135 50-200 complet ion of 017 ML/MIN ed creatin 18:10 ine renal clearan ce Estimat = 80 >60 complet ed 017 ML/MIN ed glomeru 18:10 lar filtrat ion rate (GF Comment: REFERENCE RANGE: >60 ML/MIN/1.73 SQUARE METERS Comment: If this patient is -Togolese, then multiply the Comment: result by 1.210. Serum = 3.0 1.3-3.2 complet globuli 017 gm/dL ed n 18:10 measure ment (mass/v olume) Serum = 84 74-106 complet or 017 mg/dL ed plasma 18:10 glucose measure ment (mas Serum = 3.5 3.5-5.1 complet potassi 017 mmoL/L ed um 18:10 measure ment Serum = 141 136-145 complet sodium 017 mmoL/L ed measure 18:10 ment Serum = 8 U/L 15-37 complet or 017 ed plasma 18:10 asparta te aminotr ansfera ALT = 17 12-78 complet (SGPT) 017 U/L ed ser/brian 18:10 s Protein = 7.2 6.4-8.2 complet total 017 gm/dL ed ser/brian 18:10 s Lipase measurement (04-26-2017 18:10) Lipase = 117 73-393 complet measure 017 U/L ed ment 18:10 Procedures Procedure [place] [address] DOMINIK ORTIZTINGLY ABDOMEN & 7 MERY PELVIS SHORT & W/CONTRAS MORILLO P T MATERIAL GROUND A0425 [facility] MI[facility]AGE 7 CO EMS CO EMS PER STATUTE MILE AMBULANCE A0429 [facility] SERVICE 7 CO EMS CO EMS S EMER[facility]Y TRAN[facility]ORT [facility] 01165 [facility] 7 Surgery DAY MANAGEMEN T 30 MIN/< SBSQ 33241 [facility] 7 Surgery CARE/[place] 15 [place] [address] DOMINIK BURNHAM GUIDANCE 7 MERY NEEDLE SHORT & PLACEMENT MORILLO P IMG S&I PUNCTURE 77694 DOMINIK BURNHAM ASPIRATIO 7 MERY N ABSCESS SHORT & HEMATOMA MORILLO P BULLA/CYS T INITIAL 96911 [facility] 7 Surgery CARE/DAY [address] [place] [address] DOMINIK ARGUETA ABDOMEN & 7 MERY PELVIS SHORT & W/CONTRAS MORILLO P T MATERIAL RADEX 69425 DOMINIK ARGUETA ABDOMEN 1 7 MERY SHORT & ANTEROPOS MORILLO P TERIOR VIEW AMBULANCE A0429 [facility] SERVICE 7 CO EMS CO EMS BLS EMERGENCY TRANSPORT GROUND A0425 [facility] MILEAGE 7 CO EMS CO EMS PER STATUTE MILE GROUND A0425 [facility] MILEAGE 7 CO EMS CO [facility] PER [facility]0427 [facility] EMS ALS EMERGENCY TRANSPORT LEVEL 1 ANESTHESI 15072 [facility] INTRAPERI MEDICAL TONEAL G LOWER ABD W/LAPS NOS LAPS ABD 80346 [facility] 7 Surgery MARCUS DX W/WO SPEC BR/WA SPX INITIAL 19214 [facility] 7 Surgery CARE/DAY 50 MINUTES ECG 30210 PHYSICIAN TONA ROUTINE 7 S IN ECG EMERGENCY W/LEAST MEDI 12 LDS I&R ONLY RADIOLOGI 33777 DOMINIK COTTON C 7 MERY EXAMINATI SHORT & ON CHEST [place] [address] DOMINIK RIVAS ABDOMEN & 7 MERY PELVIS SHORT & W/CONTRAS MORILLO P T MATERIAL COLLECTIO 58119 [facility] DIPESH N VENOUS 7 MEDICAL BLOOD ASSOCIATE VENIPUNCT S URE COMPREHEN 85762 [facility] BERUMEN SIVE 7 MEDICAL METABOLIC ASSOCIATE PANEL S LIPID 83223 [facility] BERUMEN PANEL 7 ACUTE CARE PHYSICAL THERAPIST S 25 56923 [facility] BERUMEN HYDROXY 7 MEDICAL INCLUDES ASSOCIATE FRACTIONS S IF PERFORMED HEMOGLOBI 90534 [facility] BERUMEN N 7 MEDICAL GLYCOSYLA ASSOCIATE LILIYA A1C S BLOOD 44977 [facility] COUNT 7 MEDICAL MEDICAL COMPLETE ASSOCIATE ASSOCIATE AUTO&AUTO S S DIFRNTL WBC ANES LWR 95276 [facility] LAY ABD 7 NE HEALTH VENTRAL & MEDICAL G INCISIONA L HERNIA REPAIR LAPS 93010 [facility] REPAIR 7 Surgery HERNIA EXCEPT INCAL/[place] [address] DOMINIK DA SILVAIER ABDOMEN & 7 MERY PELVIS SHORT & W/CONTRAS MORILLO P T MATERIAL INITIAL 86831 [facility] 7 PHYSICIAN CARE/DAY S, LLC 70 MINUTES ECG 17607 [facility] STIDAM ROUTINE 7 NE HEALTH ECG MEDICAL W/LEAST G 12 LDS I&R ONLY 3D 71248 DOMINIK JACOBO RENDERING 7 MERY W/INTERP SHORT & & MORILLO P POSTPROCE SS SUPERVISI ON GROUND A0425 [facility] 7 CO EMS CO EMS PER STATUTE MILE CT THORAX 85784 DOMINIK JACOBO 7 MERY W/CONTRAS SHORT & T MORILLO P MATERIAL AMB A0427 [facility] 7 CO EMS CO EMS ALS EMERGENCY TRANSPORT LEVEL 1 RADIOLOGI 08387 DOMINIK CARLOS [place] EXAM 7 MERY CHEST 2 SHORT & VIEWS [place]ORILLO P FRONTAL&[place] [address] DOMINIK TREMAINE ABDOMEN & 7 MERY PELVIS SHORT & W/CONTRAS MORILLO P T MATERIAL RADEX ABD 17455 DOMINIK SAINZAFT COMPL 7 MERY AQT ABD SHORT & W/S/E/D MORILLO P VIEWS 1 VIEW CH BLOOD 95044 [facility] COUNT 7 [place], [employer]PLE[employer] INC[employer] AUTO&AUTO DIFRNTL WBC LIPID 09257 [facility] PANEL 7 [place] [employer] INC[employer] COMPREHEN 19829 [facility] SIVE 7 [place], [employer] PANEL Encounters Encounter Start End Date Code Location Performer Type Date EMERGENCY 15769 PHYSICIAN NU 7 7 S IN DEPARTMEN EMERGENCY T VISIT MEDI MODERATE SEVERITY EMERGENCY 67743 PHYSICIAN JONN DEPT 7 7 S IN VISIT EMERGENCY HIGH MEDI SEVERITY& THREAT FUN EMERGENCY 11692 PHYSICIAN EILEEN DEPT 7 7 S IN VISIT EMERGENCY HIGH MEDI SEVERITY& THREAT FUNJ EMERGENCY 89017 PHYSICIAN TONA DEPT 7 7 S IN VISIT EMERGENCY HIGH MEDI SEVERITY& THREAT FUN PERIODIC 83978 [facility] 7 7 MEDICAL E MED EST ASSOCIATE PATIENT S 40-64YRS EMERGENCY 94841 PHYSICIAN KEREN DEPT 7 7 S IN VISIT EMERGENCY HIGH MEDI SEVERITY& THREAT FUN EMERGENCY 45323 PHYSICIAN LEÓN 7 7 S IN DEPARTMEN EMERGENCY T VISIT MEDI HIGH/URGE NT SEVERITY
--- OUTSIDE RECORDS SUMMARY | 2017-05-02 17:22 | External Medical Summary Rpt | CCD ---
Author Author , DONYA Organization DONYA Address Unknown Phone [email or web address] Care Team Providers Care Meat Scrubber Name Role Phone NU, JUDGE Unavailable Unavailable BUDD, BUDD Unavailable Unavailable [facility], Unavailable Unavailable [facility] Unavailable Unavailable [facility], [facility] TREMAINE, TREMAINE Unavailable Unavailable ROB, ROB Unavailable Unavailable TONA, TONA Unavailable Unavailable GOSHORN, GOSHORN Unavailable Unavailable BERUMEN, BERUMEN Unavailable Unavailable HAYCRAFT, HAYCRAFT Unavailable Unavailable ARELLANO, ARELLANO Unavailable Unavailable STEFFI, STEFFI Unavailable Unavailable TREMAINE, TREMAINE Unavailable Unavailable [facility] Unavailable Unavailable MEDICAL G, [facility] ELLIE ARGUETA Unavailable Unavailable [facility] Unavailable Unavailable [facility] L[facility], LAY Unavailable Unavailable LULA, LULA Unavailable Unavailable MCKEON JR, MCKEON JR Unavailable Unavailable RAJ, ARJ Unavailable Unavailable CARLOS, CARLOS Unavailable Unavailable ALANIZ, ALANIZ Unavailable Unavailable DIPESH, DIPESH Unavailable [facility]available [facility] Un[facility] LUNSFORD, LUNSFORD Unavailable Unavailable B[facility]NH[facility], BURNHAM Unavailable Unavailable STIDAM, STIDAM Unavailable Unavailable BARAJAS, BARAJAS Unavailable Unavailable DOMINIK MERY SHORT & Unavailable Unavailable MORILLO P, DOMINIK MERY SHORT & MORILLO P [facility] Surgery, ULRF Unavailable Unavailable [facility], Unavailable Unavailable [facility], [facility] ODALIS JACOBO Unavailable Unavailable Purpose Continuity of Care Document - 08-27-2016 through 2016 Problems Code Diagnosis DOS Provider Status R109 UNSPECIFIED 03-18-2017 PHYSICIANS ABDOMINAL IN PAIN EMERGENCY MEDI S83503 CUTANEOUS 03-15-2017 PHYSICIANS ABSCESS OF IN ABDOMINAL EMERGENCY WALL MEDI N281 CYST OF 03-15-2017 DOMINIK KIDNEY MERY ACQUIRED SHORT & MORILLO P N2889 OTHER 03-15-2017 DOMINIK SPECIFIED MERY DISORDERS SHORT & OF KIDNEY MORILLO P AND URETER B73598 CELLULITIS 2017 DOMINIK OF TRUNK MERY UNSPECIFIED SHORT & MORILLO P R110 NAUSEA 2017 [facility] Surgery R1110 VOMITING 2017 [facility] UNSPECIFIED Surgery [id number] DISRUPT 2017 [facility] INTERNAL Surgery OPERATION WOUND NEC INITIAL ENC 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 & UNSPECIFIED MORILLO P R1084 GENERALIZED 03-07-2017 PHYSICIANS ABDOMINAL IN PAIN EMERGENCY MEDI R112 NAUSEA WITH 03-07-2017 PHYSICIANS VOMITING IN UNSPECIFIED EMERGENCY MEDI R140 ABDOMINAL 03-07-2017 DOMINIK DISTENSION MERY GASEOUS SHORT & MORILLO P L7634 POSTPROC 03-04-2017 [facility] SKIN HEALTH & SUBQ MEDICAL G TISS FLW OTH PROC P95622 POSTPROC 03-04-2017 [facility] SEROMA MSK Surgery STR FLW MUSCULOSKEL SYS PROC K429 UMBILICAL 03-03-2017 DOMINIK HERNIA MERY WITHOUT SHORT & OBSTRUCTION MORILLO P OR GANGRENE R079 CHEST PAIN 03-03-2017 DOMINIK UNSPECIFIED MERY SHORT & MORILLO P R1013 EPIGASTRIC 03-03-2017 PHYSICIANS PAIN IN EMERGENCY MEDI R197 DIARRHEA 03-03-2017 PHYSICIANS UNSPECIFIED IN EMERGENCY [facility] R9431 ABNORMAL 03-03-2017 [facility] IOGRAM MEDICAL G I10 ESSENTIAL 02-27-2017 [facility] PRIMARY MEDICAL HYPERTENSIO ASSOCIATES N Z0000 ENCOUNTER 02-27-2017 [facility] ADULT MEDICAL MED EXAM ASSOCIATES W/O ABNORMAL FIND Z720 TOBACCO USE 02-27-2017 [facility] Z7689 PERSONS 02-27-2017 [facility] ENCOUNTER MEDICAL HEALTH [facility] ASSOCIATES OT CIRCUMSTANC ES K439 VENTRAL 02-24-2017 [facility] HERNIA Surgery WITHOUT OBSTRUCTION OR GANGRENE J441 CHRONIC 01-19-2017 [facility] DZ W/EXACERBAT ION R000 TACHYCARDIA 01-18-2017 [facility] UNSPECIFIED MEDICAL G R0602 SHORTNESS 01-18-2017 PHYSICIANS OF BREATH IN EMERGENCY [facility] R0789 OTHER CHEST 01-18-2017 PHYSICIANS PAIN [...] 50 1- 8- 00 01 RE ve NE 26 20 20 40 EN IL 40 [...] 84 8- 4- 00 06 ER ve NE 77 20 20 46 [place] 50 17 17 12 PH -H [address] MA Z CY 20 L -2 5 -7 MG 58 TA B ME 59 06 07 21 6 00 WA Ac TH 74 -1 -0 .0 00 LG ti YL 60 4- 7- 00 01 RE ve NE 00 20 20 38 EN ED 10 [...] 84 3- 0- 00 06 ER ve NE 77 20 20 46 [place] 50 17 17 12 PH -H [address] MA Z CY 20 L -2 5 -7 MG 58 TA B BE 00 04 05 30 30 00 KR Ac NA 37 -2 -2 .0 00 OG ti ZE 84 9- 6- 00 06 ER ve NE 77 20 20 46 IL 50 17 17 12 PH -H [address] MA Z CY 20 L -2 5 -7 MG 58 TA B BE 00 04 05 30 30 00 KR Ac NA 37 -0 -0 .0 00 OG ti ZE 84 6- 5- 00 06 ER ve NE 77 20 20 46 IL 50 17 [...] ER ve LO 13 20 20 44 NE 71 17 17 70 PH AM 0 23 AR MA 20 CY L MG -7 TA 58 BL ET BE 00 02 03 30 30 00 KR Ac NA 37 -1 -1 .0 00 OG ti ZE 84 3- 0- 00 06 ER ve NE 77 20 20 44 [place] 50 17 [...] 017 K/mm3 ed monocyt 18:10 e count [place] % = 5.6 % 1.7-9.3 complet 017 [...] SQUARE METERS Comment: If this patient is -Burundian, then multiply the Comment: result by 1.210. [...] Procedure [place] [address] DOMINIK ORTIZTINGLY ABDOMEN & 7 MERY PELVIS SHORT & W/CONTRAS MORILLO P T MATERIAL GROUND A0425 [facility] MILEAGE 7 CO EMS CO EMS PER STATUTE MILE AMBULANCE A0429 [facility] SERVICE 7 CO EMS CO EMS S EMERG[facility]Y [facility] 67009 [facility] 7 Surgery DAY MANAGEMEN T 30 MIN/< SBSQ 32961 [facility] 7 Surgery CARE/DAY 15 [place] [address] DOMINIK BURNHAM GUIDANCE 7 MERY NEEDLE SHORT & PLACEMENT MORILLO P IMG S&I PUNCTURE 35600 DOMINIK BURNHAM ASPIRATIO 7 MERY N ABSCESS SHORT & HEMATOMA MORILLO P BULLA/CYS T INITIAL 07020 [facility] 7 Surgery CARE/DAY [address] [place] [address] DOMINIK ARGUETA ABDOMEN & 7 MERY PELVIS SHORT & W/CONTRAS MORILLO P T MATERIAL RADEX 97430 DOMINIK ARGUETA ABDOMEN 1 7 MERY SHORT & ANTEROPOS MORILLO P TERIOR VIEW AMBULANCE A0429 [facility] SERVICE 7 CO EMS CO EMS BLS EMERGENCY TRANSPORT GROUND A0425 [facility] MILEAGE 7 CO EMS CO EMS PER STATUTE MILE GROUND A0425 [facility] MILEAGE 7 CO EMS CO EMS PER STATUTE [facility] AMB A0427 [facility] EMS CO EMS ALS EMERGENCY TRANSPORT LEVEL 1 ANESTHESI 01908 [facility] A 7 [facility] INTRAPERI MEDICAL TONEAL G LOWER ABD W/LAPS NOS LAPS ABD 58496 [facility] 7 Surgery MARCUS DX W/WO SPEC BR/WA SPX INITIAL 58767 [facility] 7 Surgery CARE/DAY 50 MINUTES ECG 75930 PHYSICIAN TONA ROUTINE 7 S IN ECG EMERGENCY W/LEAST MEDI 12 LDS I&R ONLY RADIOLOGI 50770 DOMINIK COTTON C 7 MERY EXAMINATI SHORT & ON CHEST [place] [address] DOMINIK RIVAS ABDOMEN & 7 MERY PELVIS SHORT & W/CONTRAS MORILLO P T MATERIAL COLLECTIO 08625 [facility] DIPESH N VENOUS 7 MEDICAL BLOOD ASSOCIATE VENIPUNCT S URE COMPREHEN 84875 [facility] BERMUEN SIVE 7 MEDICAL METABOLIC ASSOCIATE PANEL S LIPID 91693 [facility] BERUMEN PANEL 7 ACTOR UNDERSTUDY S 25 53936 [facility] BERUMEN HYDROXY 7 MEDICAL INCLUDES ASSOCIATE FRACTIONS S IF PERFORMED HEMOGLOBI 81710 [facility] BERUMEN N 7 MEDICAL GLYCOSYLA ASSOCIATE LILIYA A1C S BLOOD 47029 [facility] COUNT 7 MEDICAL MEDICAL COMPLETE ASSOCIATE ASSOCIATE AUTO&AUTO S S DIFRNTL WBC ANES LWR 00227 [facility] LAY ABD 7 NE HEALTH VENTRAL & MEDICAL G INCISIONA L HERNIA REPAIR LAPS 03636 [facility] REPAIR 7 Surgery HERNIA EXCEPT INCAL/[place] [address] DOMINIK DA SILVAIER ABDOMEN & 7 MERY PELVIS SHORT & W/CONTRAS MORILLO P T MATERIAL INITIAL 91569 [facility] 7 PHYSICIAN CARE/DAY S, [facility] 70 MINUTES ECG 65738 [facility] STIDAM ROUTINE 7 NE HEALTH ECG MEDICAL W/LEAST G 12 LDS I&R ONLY 3D 82698 DOMINIK JACOBO RENDERING 7 MERY W/INTERP SHORT & & MORILLO P POSTPROCE SS SUPERVISI ON GROUND A0425 [facility] 7 CO EMS CO EMS PER STATUTE MILE CT THORAX 66145 DOMINIK JACOBO 7 MERY W/CONTRAS SHORT & T MOR[place]O P MATERIAL AMB A0427 [facility] 7 CO EMS CO EMS ALS EMERGENCY TRANSPORT LEVEL 1 RADIOLOGI 95961 DOMINIK CARLOS [place] EXAM 7 MERY CHEST 2 SHORT & VIEWS [place]ORILLO P FRONTAL&[place] [address] DOMINIK TREMAINE ABDOMEN & 7 MERY PELVIS SHORT & W/CONTRAS MORILLO P T MATERIAL RADEX ABD 82645 DOMINIK SAINZAFT COMPL 7 MERY AQT ABD SHORT & W/S/E/D MORILLO P VIEWS 1 VIEW CH BLOOD 84000 [facility] COUNT 7 [place], COMPLE[employer] INC[employer] INC. AUTO&AUTO DIFRNTL WBC LIPID 92723 [facility] PANEL 7 [place] INC. INC. COMPREHEN 73860 [facility] SIVE 7 [place], [employer] INC[employer] PANEL Encounters Encounter Start End Date Code Location Performer Type Date EMERGENCY 43289 PHYSICIAN NU 7 7 S IN DEPARTMEN EMERGENCY T VISIT MEDI MODERATE SEVERITY EMERGENCY 87838 PHYSICIAN JONN DEPT 7 7 S IN VISIT EMERGENCY HIGH MEDI SEVERITY& THREAT FUN EMERGENCY 15291 PHYSICIAN EILEEN DEPT 7 7 S IN VISIT EMERGENCY HIGH MEDI SEVERITY& THREAT FUNJ EMERGENCY 40411 PHYSICIAN TONA DEPT 7 7 S IN VISIT EMERGENCY HIGH MEDI SEVERITY& THREAT FUN PERIODIC 77410 [facility] PRE[facility] 7 7 MEDICAL E MED EST ASSOCIATE PATIENT S 40-64YRS EMERGENCY 94975 PHYSICIAN KEREN DEPT 7 7 S IN VISIT EMERGENCY HIGH MEDI SEVERITY& THREAT FUN EMERGENCY 91431 PHYSICIAN LEÓN 7 7 S IN DEPARTMEN EMERGENCY T VISIT MEDI HIGH/URGE NT SEVERITY
--- OUTSIDE RECORDS SUMMARY | 2017-05-02 17:23 | External Medical Summary Rpt ---
Author Author DONYA Mustafa, DONYA Mustafa Organization [employer] Address Unknown Phone Unavailable
--- OUTSIDE RECORDS SUMMARY | 2017-05-02 17:23 | External Medical Summary Rpt | CCD ---
Author Author , DONYA Organization DONYA Address Unknown Phone [email or web address] Care Team Providers Care Marine Engineering Consultant Name Role Phone NU JUDGE Unavailable Unavailable BUDD, BUDD Unavailable Unavailable [facility], Unavailable Unavailable [facility] Unavailable [facility] TREMAINE, TREMAINE Unavailable Unavailable ROB, ROB Unavailable Unavailable TONA, TONA Unavailable Unavailable GOSHORN, GOSHORN Unavailable Unavailable BERUMEN, BERUMEN Unavailable Unavailable HAYCRAFT, HAYCRAFT Unavailable Unavailable ARELLANO, ARELLANO Unavailable Unavailable STEFFI, STEFFI Unavailable Unavailable TREMAINE, TREMAINE Unavailable Unavailable [facility] Unavailable Unavailable [facility], [facility] ARGUETA, ARGUETA Unavailable Unavailable [facility] [employer] Unavailable Unavailable [facility] [employer] LAY, LAY Unavailable Unavailable LULA, LULA Unavailable [...] P ULRF Surgery, ULRF Unavailable Unavailable Surgery [facility], Unavailable Unavailable [facility], [facility], [facility] ODALIS JACOBO Unavailable Unavailable Purpose Continuity of Care Document - 08-27-2016 through 2016 Problems Code Diagnosis DOS Provider Status R109 UNSPECIFIED 03-18-2017 PHYSICIANS ABDOMINAL IN PAIN EMERGENCY MEDI [id number] CUTANEOUS 03-15-2017 PHYSICIANS ABSCESS OF IN ABDOMINAL EMERGENCY WALL MEDI N281 CYST OF 03-15-2017 [facility] KIDNEY MERY ACQUIRED SHORT & MORILLO P N2889 OTHER 03-15-2017 DOMINIK SPECIFIED MERY DISORDERS SHORT & OF KIDNEY MORILLO P AND URETER [id number] CELLULITIS 2017 DOMINIK OF TRUNK MERY UNSPECIFIED SHORT & MORILLO P R110 NAUSEA 2017 [facility] Surgery R1110 VOMITING 2017 [facility] UNSPECIFIED Surgery [id number] DISRUPT 2017 [facility] INTERNAL Surgery OPERATION WOUND NEC INITIAL ENC 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 & UNSPECIFIED MORILLO P R1084 GENERALIZED 03-07-2017 PHYSICIANS ABDOMINAL IN PAIN EMERGENCY MEDI R112 NAUSEA WITH 03-07-2017 PHYSICIANS VOMITING IN UNSPECIFIED EMERGENCY MEDI R140 ABDOMINAL 03-07-2017 DOMINIK DISTENSION MERY GASEOUS SHORT & MORILLO P L7634 POSTPROC 03-04-2017 [facility] SKIN HEALTH & SUBQ MEDICAL G TISS FLW OTH PROC [id number] POSTPROC 03-04-2017 [facility] SEROMA MSK Surgery STR FLW MUSCULOSKEL SYS PROC K429 UMBILICAL 03-03-2017 DOMINIK HERNIA MERY WITHOUT SHORT & OBSTRUCTION MORILLO P OR GANGRENE R079 CHEST PAIN 03-03-2017 DOM[facility]IK UNSPECIFIED MERY SHORT & MORILLO P R1013 EPIGASTRIC 03-03-2017 PHYSICIANS PAIN IN EMERGENCY MEDI R197 DIARRHEA 03-03-2017 PHYSICIANS UNSPECIFIED IN EMERGENCY [facility] R9431 ABNORMAL 03-03-2017 [facility] IOGRAM MEDICAL G I10 ESSENTIAL 02-27-2017 [facility] PRIMARY MEDICAL HYPERTENSIO ASSOCIATES N Z0000 ENCOUNTER 02-27-2017 [facility] ADULT MEDICAL MED EXAM ASSOCIATES W/O ABNORMAL FIND Z720 TOBACCO USE 02-27-2017 [facility] MEDICAL ASSOCIATES Z7689 PERSONS 02-27-2017 [facility] ENCOUNTER MEDICAL HEALTH [facility] OTH CIRCUMSTANC ES K439 VENTRAL 02-24-2017 [facility] HERNIA Surgery WITHOUT OBSTRUCTION OR GANGRENE J441 CHRONIC 01-19-2017 [facility] DZ W/EXACERBAT ION R000 TACHYCARDIA 01-18-2017 [facility] UNSPECIFIED MEDICAL G R0602 SHORTNESS 01-18-2017 PHYSICIANS OF BREATH IN EMERGENCY [facility] R0789 OTHER CHEST 01-18-2017 PHYSICIANS PAIN IN EMERGENCY MEDI R05 COUGH 12-30-2016 DOMINIK MERY SHORT & MORILLO P R0600 DYSPNEA 12-30-2016 PHYSICIANS UNSPECIFIED IN EMERGENCY [facility] R1011 RIGHT UPPER 12-30-2016 PHYSICIANS QUADRANT IN [...] 50 1- 8- 00 01 RE ve MA 26 20 20 40 EN [place] 40 [...] 84 8- 4- 00 06 ER ve MA 77 20 20 46 [place] 50 17 17 12 PH -H [address] MA Z CY 20 L -2 5 -7 MG 58 TA B ME 59 06 07 21 6 00 WA Ac TH 74 -1 -0 .0 00 LG ti YL 60 4- 7- 00 01 RE ve MA 00 20 20 38 EN ED 10 [...] 5 36 #9 CE 22 TA 5 SD NO PH EN 5- 32 5 BE 00 06 06 30 30 00 KR Ac NA 37 -0 -3 .0 00 OG ti ZE 84 3- 0- 00 06 ER ve MA 77 20 20 46 [place] 50 17 17 12 PH -H [address] MA Z CY 20 L -2 5 -7 MG 58 TA B BE 00 04 05 30 30 00 KR Ac NA 37 -2 -2 .0 00 OG ti ZE 84 9- 6- 00 06 ER ve MA 77 20 20 46 [place] 50 17 17 12 PH -H [address] MA Z CY 20 L -2 5 -7 MG 58 TA B BE 00 04 05 30 30 00 KR Ac NA 37 -0 -0 .0 00 OG ti ZE 84 6- 5- 00 06 ER ve MA 77 20 20 46 [place] 50 17 [...] ER ve LO 13 20 20 44 MA 71 17 17 70 PH AM 0 23 AR MA 20 CY L MG -7 TA 58 BL ET BE 00 02 03 30 30 00 KR Ac NA 37 -1 -1 .0 00 OG ti ZE 84 3- 0- 00 06 ER ve MA 77 20 20 44 [place] 50 17 [...] Procedure DOS [place] [address] DOMINIK RAJ ABDOMEN & 7 MERY PELVIS SHORT & W/CONTRAS MORILLO P T MATERIAL GROUND A0425 [facility] EMS PER STATUTE MILE AMBULANCE A0429 [facility] 7 CO EMS CO EMS [facility] 30[address] [facility] 7 Surgery DAY MANAGEMEN T 30 MIN/< [place] [address] DOMINIK [facility] GUIDANCE 7 MERY NEEDLE SHORT & PLACEMENT MORILLO P IMG S&I PUNCTURE 82078 [facility] ASPIRATIO 7 MERY N ABSCESS SHORT & HEMATOMA MORILLO P BULLA/CYS T SBSQ 60983 [facility] 7 Surgery CARE/DAY 15 MINUTES INITIAL [address] [facility] 7 Surgery CARE/DAY [address] [place] [address] DOMINIK ARGUETA ABDOMEN & 7 MERY PELVIS SHORT & W/CONTRAS MORILLO P T MATERIAL RADEX 10358 DOMINIK ARGUETA ABDOMEN 1 7 MERY SHORT & ANTEROPOS MORILLO P TERIOR VIEW AMBULANCE A0429 [facility] CO EMS CO EMS S EMERGENCY TRANSPORT GROUND A0425 [facility] CO EMS PER STATUTE MILE GROUND A0425 [facility] EMS CO EMS PER STATUTE MILE AMB A0427 [facility] 7 CO EMS CO EMS ALS EMERGENCY TRANSPORT LEVEL 1 ANESTHESI 63446 [facility] MCKEON JR A 7 NE HEALTH INTRAPERI MEDICAL TONEAL G LOWER ABD W/LAPS NOS LAPS ABD 86993 [facility] PRTM&OMEN 7 Surgery MARCUS DX W/WO SPEC BR/WA SPX INITIAL [address] [facility] 7 Surgery CARE/DAY 50 MINUTES ECG 79649 PHYSICIAN TONA ROUTINE 7 S IN ECG EMERGENCY W/LEAST MEDI 12 LDS I&R ONLY RADIOLOGI 84582 DOMINIK LULA C 7 MERY EXAMINATI SHORT & ON CHEST [place] [address] DOMINIK ENRIQUEDEN ABDOMEN & 7 MERY PELVIS SHORT & W/CONTRAS MORILLO P T MATERIAL COLLECTIO 57605 [facility] DIPESH N VENOUS 7 MEDICAL BLOOD ASSOCIATE VENIPUNCT S URE BLOOD 87167 [facility] COUNT 7 MEDICAL MEDICAL COMPLETE ASSOCIATE ASSOCIATE AUTO&AUTO S S DIFRNTL WBC COMPREHEN 14156 [facility] BERUMEN SIVE 7 MEDICAL METABOLIC ASSOCIATE PANEL S LIPID 60589 [facility] BERUMEN PANEL 7 RETRIEVAL SPECIALIST S 25 91623 [facility] BERUMEN HYDROXY 7 MEDICAL INCLUDES ASSOCIATE FRACTIONS S IF PERFORMED HEMOGLOBI 80402 [facility] BERUMEN N 7 MEDICAL GLYCOSYLA ASSOCIATE LILIYA A1C S [place] L[place] [address] [facility] LAY ABD 7 NE HEALTH VENTRAL & MEDICAL G INCISIONA L HERNIA REPAIR LAPS 97733 [facility] REPAIR 7 Surgery HERNIA EXCEPT INCAL/[place] [address] DOMINIK TREMAINE ABDOMEN & 7 MERY PELVIS SHORT & W/CONTRAS MORILLO P T MATERIAL INITIAL 19303 [facility] 7 PHYSICIAN CARE/DAY S, LLC 70 MINUTES GROUND A0425 [facility] 7 CO EMS CO EMS PER STATUTE MILE ECG 56949 [facility] STIDAM ROUTINE 7 NE HEALTH ECG MEDICAL W/LEAST G 12 LDS I&R ONLY 3D 17022 DOMINIK JACOBO RENDERING 7 MERY W/INTERP SHORT & & MORILLO P POSTPROCE SS SUPERVISI ON CT THORAX 89296 DOMINIK JACOBO 7 MERY W/CONTRAS SHORT & T MORILLO P MATERIAL AMB A0427 [facility] CO EMS CO EMS ALS EMERGENCY TRANSPORT LEVEL 1 RADIOLOGI 07547 DOMINIK CARLOS C EXAM 7 MERY CHEST 2 SHORT & VIEWS MORILLO P FRONTAL&[place] [address] DOMINIK TREMAINE ABDOMEN & 7 MERY PELVIS SHORT & W/CONTRAS MORILLO P T MATERIAL RADEX ABD 97241 DOMINIK HAYCRAFT COMPL 7 MERY AQT ABD SHORT & W/S/E/D MORILLO P VIEWS 1 VIEW CH BLOOD 02669 [facility] COUNT 7 [place], [place], [employer] INC[employer] AUTO&AUTO DIFRNTL WBC LIPID 18037 [facility] PANEL 7 [facility] [place], INC[employer] INC[employer] COMPREHEN 28506 [facility] SIVE 7 [facility], [place], [employer] PANEL Encounters Encounter Start End Date Code Location Performer Type Date EMERGENCY 99948 PHYSICIAN NU 7 7 S IN DEPARTMEN EMERGENCY T VISIT MEDI MODERATE SEVERITY EMERGENCY 10898 PHYSICIAN JONN DEPT 7 7 S IN VISIT EMERGENCY HIGH MEDI SEVERITY& THREAT FUN EMERGENCY 24313 PHYSICIAN EILEEN DEPT 7 7 S IN VISIT EMERGENCY HIGH MEDI SEVERITY& THREAT FUNJ EMERGENCY 97263 PHYSICIAN TONA DEPT 7 7 S IN VISIT EMERGENCY HIGH MEDI SEVERITY& THREAT FUN PERIODIC 17180 [facility] PREVENTIV 7 7 MEDICAL E MED EST ASSOCIATE PATIENT S 40-64YRS EMERGENCY 83091 PHYSICIAN KEREN DEPT 7 7 S IN VISIT EMERGENCY HIGH MEDI SEVERITY& THREAT FUN EMERGENCY 80215 PHYSICIAN LEÓN 7 7 S IN DEPARTMEN EMERGENCY T VISIT MEDI HIGH/URGE NT SEVERITY
--- OUTSIDE RECORDS SUMMARY | 2017-05-02 17:23 | External Medical Summary Rpt | CCD ---
Demographics Preferred Language Serbian Marital Status Unknown Sabianism Affiliation Unknown Race Unknown Ethnic Group Unknown Author Author , DONYA NAQVI Address Unknown Phone Immunization No patient found.
--- OUTSIDE RECORDS SUMMARY | 2017-05-02 17:23 | External Medical Summary Rpt | CCD ---
Author Author , DONYA Organization DONYA Address Unknown Phone [email or web address] Care Team Providers Care Body Maker Name Role Phone NU JUDGE Unavailable Unavailable BUDD, BUDD Unavailable Unavailable [facility], Unavailable Unavailable [facility] Unavailable [facility]available [facility] TREMAINE, TREMAINE Unavailable Unavailable ROB, ROB Unavailable Unavailable TONA, TONA Unavailable Unavailable GOSHORN, GOSHORN Unavailable Unavailable BERUMEN, BERUMEN Unavailable Unavailable HAYCRAFT, HAYCRAFT Unavailable Unavailable ARELLANO, ARELLANO Unavailable Unavailable STEFFI, STEFFI Unavailable Unavailable TREMAINE, TREMAINE Unavailable Unavailable [facility] Unavailable Unavailable MEDICAL G, [facility] ARGUETA, ARGUETA Unavailable Unavailable [facility] [employer] Unavailable Unavailable [facility] [employer]. LAY, LAY Unavailable Unavailable LULA, LULA Unavailable [...] P ULRF Surgery, ULRF Unavailable Unavailable Surgery [facility], Unavailable Unavailable [facility], [facility], [facility] ODALIS JACOBO Unavailable Unavailable Purpose Continuity of Care Document - 08-27-2016 through 2016 Problems Code Diagnosis DOS Provider Status R109 UNSPECIFIED 03-18-2017 PHYSICIANS ABDOMINAL IN PAIN EMERGENCY MEDI I01246 CUTANEOUS 03-15-2017 PHYSICIANS ABSCESS OF IN ABDOMINAL EMERGENCY WALL MEDI N281 CYST OF 03-15-2017 DOMINIK KIDNEY MERY ACQUIRED SHORT & MORILLO P N2889 OTHER 03-15-2017 DOMINIK SPECIFIED MERY DISORDERS SHORT & OF KIDNEY MORILLO P AND URETER T44257 CELLULITIS 2017 DOMINIK OF TRUNK MERY UNSPECIFIED SHORT & MORILLO P R110 NAUSEA 2017 ULRF Surgery R1110 VOMITING 2017 [facility] UNSPECIFIED Surgery [id number] DISRUPT 2017 [facility] INTERNAL Surgery OPERATION WOUND NEC INITIAL ENC 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 & UNSPECIFIED MORILLO P R1084 GENERALIZED 03-07-2017 PHYSICIANS ABDOMINAL IN PAIN EMERGENCY MEDI R112 NAUSEA WITH 03-07-2017 PHYSICIANS VOMITING IN UNSPECIFIED EMERGENCY MEDI R140 ABDOMINAL 03-07-2017 DOMINIK DISTENSION MERY GASEOUS SHORT & MORILLO P L7634 POSTPROC 03-04-2017 [facility] SKIN HEALTH & SUBQ MEDICAL G TISS FLW OTH PROC U52143 POSTPROC 03-04-2017 [facility] SEROMA MSK Surgery STR FLW MUSCULOSKEL SYS PROC K429 UMBILICAL 03-03-2017 DOMINIK HERNIA MERY WITHOUT SHORT & OBSTRUCTION MORILLO P OR GANGRENE R079 CHEST PAIN 03-03-2017 DOM[facility] UNSPECIFIED MERY SHORT & MORILLO P R1013 EPIGASTRIC 03-03-2017 PHYSICIANS PAIN IN EMERGENCY MEDI R197 DIARRHEA 03-03-2017 PHYSICIANS UNSPECIFIED IN EMERGENCY [facility] R9431 ABNORMAL 03-03-2017 [facility] IOGRAM MEDICAL G I10 ESSENTIAL 02-27-2017 [facility] PRIMARY MEDICAL HYPERTENSIO ASSOCIATES N Z0000 ENCOUNTER 02-27-2017 [facility] ADULT MEDICAL MED EXAM ASSOCIATES W/O ABNORMAL FIND Z720 TOBACCO USE 02-27-2017 [facility] MEDICAL ASSOCIATES Z7689 PERSONS 02-27-2017 [facility] ENCOUNTER MEDICAL HEALTH [facility] OTH CIRCUMSTANC ES K439 VENTRAL 02-24-2017 [facility] HERNIA Surgery WITHOUT OBSTRUCTION OR GANGRENE J441 CHRONIC 01-19-2017 [facility] DZ W/EXACERBAT ION R000 TACHYCARDIA 01-18-2017 [facility] UNSPECIFIED MEDICAL G R0602 SHORTNESS 01-18-2017 PHYSICIANS OF BREATH IN EMERGENCY [facility] R0789 OTHER CHEST 01-18-2017 PHYSICIANS PAIN IN EMERGENCY MEDI R05 COUGH 12-30-2016 DOMINIK MERY SHORT & MORILLO P R0600 DYSPNEA 12-30-2016 PHYSICIANS UNSPECIFIED IN EMERGENCY [facility] R1011 RIGHT UPPER 12-30-2016 PHYSICIANS QUADRANT [...] 50 1- 8- 00 01 RE ve PA 26 20 20 40 EN [place] 40 [...] 84 8- 4- 00 06 ER ve PA 77 20 20 46 [place] 50 17 17 12 PH -H [address] MA Z CY 20 L -2 5 -7 MG 58 TA B ME 59 06 07 21 6 00 WA Ac TH 74 -1 -0 .0 00 LG ti YL 60 4- 7- 00 01 RE ve PA 00 20 20 38 EN ED 10 [...] 5 36 #9 CE 22 TA 5 FL NO PH EN 5- 32 5 BE 00 06 06 30 30 00 KR Ac NA 37 -0 -3 .0 00 OG ti ZE 84 3- 0- 00 06 ER ve PA 77 20 20 46 [place] 50 17 17 12 PH -H [address] MA Z CY 20 L -2 5 -7 MG 58 TA B BE 00 04 05 30 30 00 KR Ac NA 37 -2 -2 .0 00 OG ti ZE 84 9- 6- 00 06 ER ve PA 77 20 20 46 [place] 50 17 17 12 PH -H [address] MA Z CY 20 L -2 5 -7 MG 58 TA B BE 00 04 05 30 30 00 KR Ac NA 37 -0 -0 .0 00 OG ti ZE 84 6- 5- 00 06 ER ve PA 77 20 20 46 [place] 50 17 [...] ER ve LO 13 20 20 44 PA 71 17 17 70 PH AM 0 23 AR MA 20 CY L MG -7 TA 58 BL ET BE 00 02 03 30 30 00 KR Ac NA 37 -1 -1 .0 00 OG ti ZE 84 3- 0- 00 06 ER ve PA 77 20 20 44 [place] 50 17 [...] Procedure DOS [place] [address] DOMINIK RAJ ABDOMEN & 7 MERY PELVIS SHORT & W/CONTRAS MORILLO P T MATERIAL GROUND A0425 [facility] CO EMS CO EMS PER STATUTE MILE AMBULANCE A0429 [facility] 7 CO EMS CO EMS [facility] [address] [facility] 7 Surgery DAY MANAGEMEN T 30 MIN/< [place] [address] DOMINIK BURNHAM GUIDANCE 7 MERY NEEDLE SHORT & PLACEMENT MORILLO P IMG S&I PUNCTURE 81137 DOMINIK BURNHAM ASPIRATIO 7 MERY N ABSCESS SHORT & HEMATOMA MORILLO P BULLA/CYS T SBSQ 43748 [facility] 7 Surgery CARE/DAY 15 MINUTES INITIAL 92278 [facility] 7 Surgery CARE/DAY [address] [address] DOMINIK ARGUETA ABDOMEN & 7 MERY PELVIS SHORT & W/CONTRAS MORILLO P T MATERIAL RADEX 75213 DOMINIK ARGUETA ABDOMEN 1 7 MERY SHORT & ANTEROPOS MORILLO P TERIOR VIEW AMBULANCE A0429 [facility] CO EMS CO EMS S EMERGENCY TRANSPORT GROUND A0425 [facility] CO EMS CO EMS PER STATUTE MILE GROUND A0425 [facility] CO EMS CO EMS PER STATUTE MILE AMB A0427 [facility] CO EMS CO EMS ALS EMERGENCY TRANSPORT LEVEL 1 ANESTHESI 54654 [facility] MCKEON JR A 7 NE HEALTH INTRAPERI MEDICAL TONEAL G LOWER ABD W/LAPS NOS LAPS ABD 71636 [facility] PRTM&OMEN 7 Surgery MARCUS DX W/WO SPEC BR/WA SPX INITIAL 06811 [facility] 7 Surgery CARE/DAY 50 MINUTES ECG 05586 PHYSICIAN TONA ROUTINE 7 S IN ECG EMERGENCY W/LEAST MEDI 12 LDS I&R ONLY RADIOLOGI 51273 DOMINIK LULA C 7 MERY EXAMINATI SHORT & ON CHEST [place] [address] DOMINIK ENRIQUEDEN ABDOMEN & 7 MERY PELVIS SHORT & W/CONTRAS MORILLO P T MATERIAL COLLECTIO 49385 [facility] DIPESH N VENOUS 7 MEDICAL BLOOD ASSOCIATE VENIPUNCT S URE BLOOD 54773 [facility] COUNT 7 MEDICAL MEDICAL COMPLETE ASSOCIATE ASSOCIATE AUTO&AUTO S S DIFRNTL WBC COMPREHEN 88763 [facility] BERUMEN SIVE 7 MEDICAL METABOLIC ASSOCIATE PANEL S LIPID 15800 [facility] BERUMEN PANEL 7 MANDOLIN REPAIRER S 25 32611 [facility] BERUMEN HYDROXY 7 MEDICAL INCLUDES ASSOCIATE FRACTIONS S IF PERFORMED HEMOGLOBI 10179 [facility] BERUMEN N 7 MEDICAL GLYCOSYLA ASSOCIATE LILIYA A1C S ANES LWR 53208 [facility] LAY ABD 7 NE HEALTH VENTRAL & MEDICAL G INCISIONA L HERNIA REPAIR LAPS 16315 [facility] REPAIR 7 Surgery HERNIA EXCEPT INCAL/[place] [address] DOMINIK TREMAINE ABDOMEN & 7 MERY PELVIS SHORT & W/CONTRAS MORILLO P T MATERIAL INITIAL 67795 [facility] 7 PHYSICIAN CARE/DAY S, LLC 70 MINUTES GROUND A0425 [facility] 7 CO EMS CO EMS PER STATUTE MILE ECG 67095 [facility] STIDAM ROUTINE 7 NE HEALTH ECG MEDICAL W/LEAST G 12 LDS I&R ONLY 3D 13942 DOMINIK JACOBO RENDERING 7 MERY W/INTERP SHORT & & MORILLO P POSTPROCE SS SUPERVISI ON CT THORAX 71239 DOMINIK JACOBO 7 MERY W/CONTRAS SHORT & T MORILLO P MATERIAL AMB A0427 [facility] 7 CO EMS CO EMS ALS EMERGENCY TRANSPORT LEVEL 1 RADIOLOGI 81890 DOMINIK CARLOS C EXAM 7 MERY CHEST 2 SHORT & VIEWS MORILLO P FRONTAL&[place] [address] DOMINIK TREMAINE ABDOMEN & 7 MERY PELVIS SHORT & W/CONTRAS MORILLO P T MATERIAL RADEX ABD 01631 DOMINIK HAYCRAFT COMPL 7 MERY AQT ABD SHORT & W/S/E/D MORILLO P VIEWS 1 VIEW CH BLOOD 51926 [facility] COUNT 7 [facility] [place], [employer] INC. AUTO&AUTO DIFRNTL WBC LIPID 26308 [facility] PANEL 7 [facility] [place], INC[employer] INC. COMPREHEN 74802 [facility] SIVE 7 [facility] [place], [employer] PANEL Encounters Encounter Start End Date Code Location Performer Type Date EMERGENCY 91048 PHYSICIAN NU 7 7 S IN DEPARTMEN EMERGENCY T VISIT MEDI MODERATE SEVERITY EMERGENCY 54138 PHYSICIAN JONN DEPT 7 7 S IN VISIT EMERGENCY HIGH MEDI SEVERITY& THREAT FUN EMERGENCY 34362 PHYSICIAN EILEEN DEPT 7 7 S IN VISIT EMERGENCY HIGH MEDI SEVERITY& THREAT FUNJ EMERGENCY 82590 PHYSICIAN TONA DEPT 7 7 S IN VISIT EMERGENCY HIGH MEDI SEVERITY& THREAT FUN PERIODIC 56330 COMMUNITY PREVENTIV 7 7 MEDICAL E MED EST ASSOCIATE PATIENT S 40-64YRS EMERGENCY 67319 PHYSICIAN KEREN DEPT 7 7 S IN VISIT EMERGENCY HIGH MEDI SEVERITY& THREAT FUN EMERGENCY 70021 PHYSICIAN LEÓN 7 7 S IN DEPARTMEN EMERGENCY T VISIT MEDI HIGH/URGE NT SEVERITY
--- OUTSIDE RECORDS SUMMARY | 2017-05-02 17:23 | External Medical Summary Rpt | CCD ---
Demographics Preferred Language Mongolian Marital Status Unknown Druze Affiliation Unknown Race Unknown Ethnic Group Unknown Author Author , DONYA NAQVI Address Unknown Phone Immunization No patient found.
--- OUTSIDE RECORDS SUMMARY | 2017-05-02 17:38 | External Medical Summary Rpt | CCD ---
Author Author , DONYA Organization DONYA Address Unknown Phone [email or web address] Care Team Providers Care Paralegal Instructor Name Role Phone NU, JUDGE Unavailable Unavailable BUDD, BUDD Unavailable Unavailable [facility], Unavailable Unavailable [facility] Un[facility] TREMAINE, TREMAINE Unavailable Unavailable ROB, RBO Unavailable Unavailable TONA, TONA Unavailable Unavailable GOSHORN, GOSHORN Unavailable Unavailable BERUMEN, BERUMEN Unavailable Unavailable HAYCRAFT, HAYCRAFT Unavailable Unavailable ARELLANO, ARELLANO Unavailable Unavailable STEFFI, STEFFI Unavailable Unavailable TREMAINE, TREMAINE Unavailable Unavailable [facility] Unavailable Unavailable MEDICAL G, [facility] ELLIE ARGUETA Unavailable Unavailable [facility] Unavailable Unavailable [facility]. LAY, LAY Unavailable Unavailable LULA, LULA Unavailable [...] P ULRF Surgery, ULRF Unavailable Unavailable Surgery [facility], Unavailable Unavailable [facility], [facility], [facility] ODALIS JACOBO Unavailable Unavailable Purpose Continuity of Care Document - 08-27-2016 through 2016 Problems Code Diagnosis DOS Provider Status R109 UNSPECIFIED 03-18-2017 PHYSICIANS ABDOMINAL IN PAIN EMERGENCY MEDI [id number] CUTANEOUS 03-15-2017 PHYSICIANS ABSCESS OF IN ABDOMINAL EMERGENCY WALL MEDI N281 CYST OF 03-15-2017 DOM[facility]IK KIDNEY MERY ACQUIRED SHORT & MORILLO P N2889 OTHER 03-15-2017 DOMINIK SPECIFIED MERY DISORDERS SHORT & OF KIDNEY MORILLO P AND URETER [id number] CELLULITIS 2017 DOMINIK OF TRUNK MERY UNSPECIFIED SHORT & MORILLO P R110 NAUSEA 2017 ULRF Surgery R1110 VOMITING 2017 [facility] UNSPECIFIED Surgery [id number] DISRUPT 2017 [facility] INTERNAL Surgery OPERATION WOUND NEC INITIAL ENC 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 & UNSPECIFIED MORILLO P R1084 GENERALIZED 03-07-2017 PHYSICIANS ABDOMINAL IN PAIN EMERGENCY MEDI R112 NAUSEA WITH 03-07-2017 PHYSICIANS VOMITING IN UNSPECIFIED EMERGENCY MEDI R140 ABDOMINAL 03-07-2017 DOMINIK DISTENSION MERY GASEOUS SHORT & MORILLO P L7634 POSTPROC 03-04-2017 [facility] SKIN HEALTH & SUBQ MEDICAL G TISS FLW OTH PROC [id number] POSTPROC 03-04-2017 [facility] SEROMA MSK Surgery STR FLW MUSCULOSKEL SYS PROC K429 UMBILICAL 03-03-2017 DOMINIK HERNIA MERY WITHOUT SHORT & OBSTRUCTION MORILLO P OR GANGRENE R079 CHEST PAIN 03-03-2017 DOMINIK UNSPECIFIED MERY SHORT & MORILLO P R1013 EPIGASTRIC 03-03-2017 PHYSICIANS PAIN IN EMERGENCY MEDI R197 DIARRHEA 03-03-2017 PHYSICIANS UNSPECIFIED IN EMERGENCY [facility] R9431 ABNORMAL 03-03-2017 [facility] IOGRAM MEDICAL G I10 ESSENTIAL 02-27-2017 [facility] PRIMARY MEDICAL HYPERTENSIO ASSOCIATES N Z0000 ENCOUNTER 02-27-2017 [facility] ADULT MEDICAL MED EXAM ASSOCIATES W/O ABNORMAL FIND Z720 TOBACCO USE 02-27-2017 [facility] Z7689 PERSONS 02-27-2017 [facility] ENCOUNTER MEDICAL HEALTH [facility] ASSOCIATES OT CIRCUMSTANC ES K439 VENTRAL 02-24-2017 [facility] HERNIA Surgery WITHOUT OBSTRUCTION OR GANGRENE J441 CHRONIC 01-19-2017 [facility] DZ W/EXACERBAT ION R000 TACHYCARDIA 01-18-2017 [facility] UNSPECIFIED MEDICAL G R0602 SHORTNESS 01-18-2017 [facility]IANS OF BREATH IN EMERGENCY [facility] R0789 OTHER CHEST 01-18-2017 PHYSICIANS PAIN [...] Other ascites R19.7 Diarrhea, unspecified Z79.899 Other correction (current) drug therapy Z98.890 Other specified postprocedu [...] 50 1- 8- 00 01 RE ve GA 26 20 20 40 EN IL 40 [...] 84 8- 4- 00 06 ER ve GA 77 20 20 46 [place] 50 17 17 12 PH -H [address] MA Z CY 20 L -2 5 -7 MG 58 TA B ME 59 06 07 21 6 00 UT Ac TH 74 -1 -0 .0 00 LG ti YL 60 4- 7- 00 01 RE ve GA 00 20 20 38 EN ED 10 [...] 84 3- 0- 00 06 ER ve GA 77 20 20 46 IL 50 17 17 12 PH -H [address] MA Z CY 20 L -2 5 -7 MG 58 TA B BE 00 04 05 30 30 00 KR Ac NA 37 -2 -2 .0 00 OG ti ZE 84 9- 6- 00 06 ER ve GA 77 20 20 46 IL 50 17 17 12 PH -H [address] MA Z CY 20 L -2 5 -7 MG 58 TA B BE 00 04 05 30 30 00 KR Ac NA 37 -0 -0 .0 00 OG ti ZE 84 6- 5- 00 06 ER ve GA 77 20 20 46 IL 50 17 [...] ER ve LO 13 20 20 44 GA 71 17 17 70 PH AM 0 23 AR MA 20 CY L MG -7 TA 58 BL ET BE 00 02 03 30 30 00 KR Ac NA 37 -1 -1 .0 00 OG ti ZE 84 3- 0- 00 06 ER ve GA 77 20 20 44 IL 50 17 [...] 017 K/mm3 ed monocyt 18:10 e count Dale % = 5.6 % 1.7-9.3 complet 017 [...] SQUARE METERS Comment: If this patient is -Swazi, then multiply the Comment: result by 1.210. [...] Procedure [place] [address] DOMINIK RAJ ABDOMEN & 7 MERY PELVIS SHORT & W/CONTRAS MORILLO P T MATERIAL GROUND A0425 [facility] CO EMS PER STATUTE MILE AMBULANCE A0429 [facility] EMS CO EMS [facility] 86[address] [facility] DISCHARGE 7 Surgery DAY MANAGEMEN T 30 MIN/< [place] [address] DOMINIK BURNHAM GUIDANCE 7 MERY NEEDLE SHORT & PLACEMENT MORILLO P IMG S&I PUNCTURE 09048 DOMINIK BUR[facility]AM ASPIRATIO 7 MERY N ABSCESS SHORT & HEMATOMA MORILLO P BULLA/CYS T SBSQ 12478 [facility] 7 Surgery CARE/DAY 15 MINUTES INITIAL 70195 [facility] 7 Surgery CARE/DAY [address] [address] DOMINIKOSIRIS ARGUETA ABDOMEN & 7 MERY PELVIS SHORT & W/CONTRAS MORILLO P T MATERIAL RADEX 53862 DOMINIKOSIRIS ARGUETA ABDOMEN 1 7 MERY SHORT & ANTEROPOS MORILLO P TERIOR VIEW AMBULANCE A0429 [facility] CO EMS CO EMS BLS EMERGENCY TRANSPORT GROUND A0425 [facility] CO EMS CO EMS PER STATUTE MILE GROUND A0425 [facility] 7 CO EMS CO EMS PER STATUTE MILE AMB A0427 [facility] 7 CO EMS CO EMS ALS EMERGENCY TRANSPORT LEVEL 1 ANESTHESI 83465 [facility] MCKEON JR A 7 NE HEALTH INTRAPERI MEDICAL TONEAL G LOWER ABD W/LAPS NOS LAPS ABD 38075 [facility] 7 Surgery MARCUS DX W/WO SPEC BR/WA SPX INITIAL 61550 [facility] 7 Surgery CARE/DAY 50 MINUTES ECG 57336 PHYSICIAN TONA ROUTINE 7 S IN ECG EMERGENCY W/LEAST MEDI 12 LDS I&R ONLY RADIOLOGI 10155 DOMINIK LULA C 7 MERY EXAMINATI SHORT & ON CHEST [place] [address] DOMINIK ENRIQUEDEN ABDOMEN & 7 MERY PELVIS SHORT & W/CONTRAS MORILLO P T MATERIAL COLLECTIO 60834 [facility] DIPESH N VENOUS 7 MEDICAL BLOOD ASSOCIATE VENIPUNCT S URE BLOOD 30105 [facility] COUNT 7 MEDICAL MEDICAL COMPLETE ASSOCIATE ASSOCIATE AUTO&AUTO S S DIFRNTL WBC COMPREHEN 31927 [facility] BERUMEN SIVE 7 MEDICAL METABOLIC ASSOCIATE PANEL S LIPID 69109 [facility] BERUMEN PANEL 7 NUCLEAR PHYSICIST S 25 33228 [facility] BERUMEN HYDROXY 7 MEDICAL INCLUDES ASSOCIATE FRACTIONS S IF PERFORMED HEMOGLOBI 73013 [facility] BERUMEN N 7 MEDICAL GLYCOSYLA ASSOCIATE LILIYA A1C S ANES LWR 15663 [facility] LAY ABD 7 NE HEALTH VENTRAL & MEDICAL G INCISIONA L HERNIA REPAIR LAPS 95995 [facility] 7 Surgery HERNIA EX[place] [address] DOMINIK DA SILVAIER ABDOMEN & 7 MERY PELVIS SHORT & W/CONTRAS MORILLO P T MATERIAL INITIAL 47325 [facility] 7 PHYSICIAN CARE/[facility] 70 MINUTES GROUND A0425 [facility] 7 CO EMS CO EMS PER STATUTE [facility] MEDICAL W/LEAST G 12 LDS I&R ONLY 3D 10963 DOMINIK JACOBO RENDERING 7 MERY W/INTERP SHORT & & MORILLO P POSTPROCE SS SUPERVISI ON CT THORAX 32500 DOMINIK JACOBO 7 MERY W/CONTRAS SHORT & T MORILLO P MATERIAL AMB A0427 [facility] 7 CO EMS CO EMS ALS EMERGENCY TRANSPORT LEVEL 1 RADIOLOGI 24182 DOMINIK CARLOS C EXAM 7 MERY CHEST 2 SHORT & VIEWS MORILLO P FRONTAL&[place] [address] DOMINIK TREMAINE ABDOMEN & 7 MERY PELVIS SHORT & W/CONTRAS MORILLO P T MATERIAL RADEX ABD 79106 DOMINIK HAYCRAFT COMPL 7 MERY AQT ABD SHORT & W/S/E/D MORILLO P VIEWS 1 VIEW CH BLOOD 99781 [facility] 7 [place], [employer] INC[employer] AUTO&AUTO DIFRNTL WBC LIPID 23323 [facility] PANEL 7 [place] [employer] COMPREHEN 75331 [facility] SIVE 7 [place], [employer] PANEL Encounters Encounter Start End Date Code Location Performer Type Date EMERGENCY 15190 PHYSICIAN NU 7 7 S IN DEPARTMEN EMERGENCY T VISIT MEDI MODERATE SEVERITY EMERGENCY 96759 PHYSICIAN JONN DEPT 7 7 S IN VISIT EMERGENCY HIGH MEDI SEVERITY& THREAT FUNJ EMERGENCY 15695 PHYSICIAN EILEEN DEPT 7 7 S IN VISIT EMERGENCY HIGH MEDI SEVERITY& THREAT FUNJ EMERGENCY 14938 PHYSICIAN TONA DEPT 7 7 S IN VISIT EMERGENCY HIGH MEDI SEVERITY& THREAT FUN PERIODIC 24654 [facility] PRE[facility] 7 7 MEDICAL E MED EST ASSOCIATE PATIENT S 40-64YRS EMERGENCY 32049 PHYSICIAN KEREN DEPT 7 7 S IN VISIT EMERGENCY HIGH MEDI SEVERITY& THREAT FUN EMERGENCY 72222 PHYSICIAN LEÓN 7 7 S IN DEPARTMEN EMERGENCY T VISIT MEDI HIGH/URGE NT SEVERITY
--- OUTSIDE RECORDS SUMMARY | 2017-05-02 17:38 | External Medical Summary Rpt | CCD ---
Author Author , DONYA Organization DONYA Address Unknown Phone [email or web address] Care Team Providers Care System Dispatcher Name Role Phone NU, JUDGE Unavailable Unavailable [...] Unavailable TREMAINE, TREMAINE Unavailable Unavailable [facility] Unavailable Unavailable MEDICAL G, [facility] MEDICAL G ELLIE ARGUETA Unavailable Unavailable [facility] [employer] [facility] Unavailable Unavailable [facility] LAY, LAY Unavailable Unavailable LULA, LULA Unavailable [...] P ULRF Surgery, ULRF Unavailable Unavailable Surgery [facility], Unavailable Unavailable [facility], [facility], [facility] ODALIS JACOBO Unavailable Unavailable Purpose Continuity of Care Document - 08-27-2016 through 2016 Problems Code Diagnosis DOS Provider Status R109 UNSPECIFIED 03-18-2017 PHYSICIANS ABDOMINAL IN PAIN EMERGENCY MEDI L13722 CUTANEOUS 03-15-2017 PHYSICIANS ABSCESS OF IN ABDOMINAL EMERGENCY WALL MEDI N281 CYST OF 03-15-2017 DOMINIK KIDNEY MERY ACQUIRED SHORT & MORILLO P N2889 OTHER 03-15-2017 DOMINIK SPECIFIED MERY DISORDERS SHORT & OF KIDNEY MORILLO P AND URETER R68657 CELLULITIS 2017 DOMINIK OF TRUNK MERY UNSPECIFIED SHORT & MORILLO P R110 NAUSEA 2017 ULRF Surgery R1110 VOMITING 2017 [facility] UNSPECIFIED Surgery [id number] DISRUPT 2017 [facility] INTERNAL Surgery OPERATION WOUND NEC INITIAL ENC 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 & UNSPECIFIED MORILLO P R1084 GENERALIZED 03-07-2017 PHYSICIANS ABDOMINAL IN PAIN EMERGENCY MEDI R112 NAUSEA WITH 03-07-2017 PHYSICIANS VOMITING IN UNSPECIFIED EMERGENCY MEDI R140 ABDOMINAL 03-07-2017 DOMINIK DISTENSION MERY GASEOUS SHORT & MORILLO P L7634 POSTPROC 03-04-2017 [facility] SKIN HEALTH & SUBQ MEDICAL G TISS FLW OTH PROC B81284 POSTPROC 03-04-2017 [facility] SEROMA MSK Surgery STR FLW MUSCULOSKEL SYS PROC K429 UMBILICAL 03-03-2017 DOMINIK HERNIA MERY WITHOUT SHORT & OBSTRUCTION MORILLO P OR GANGRENE R079 CHEST PAIN 03-03-2017 DOMINIK UNSPECIFIED MERY SHORT & MORILLO P R1013 EPIGASTRIC 03-03-2017 PHYSICIANS PAIN IN EMERGENCY MEDI R197 DIARRHEA 03-03-2017 PHYSICIANS UNSPECIFIED IN EMERGENCY [facility] R9431 ABNORMAL 03-03-2017 [facility] IOGRAM MEDICAL G I10 ESSENTIAL 02-27-2017 [facility] PRIMARY MEDICAL HYPERTENSIO ASSOCIATES N Z0000 ENCOUNTER 02-27-2017 [facility] ADULT MEDICAL MED EXAM ASSOCIATES W/O ABNORMAL FIND Z720 TOBACCO USE 02-27-2017 [facility]ICAL [facility] Z7689 PERSONS 02-27-2017 [facility] ENCOUNTER MEDICAL HEALTH [facility] OT CIRCUMSTANC ES K439 VENTRAL 02-24-2017 [facility] HERNIA Surgery WITHOUT OBSTRUCTION OR GANGRENE J441 CHRONIC 01-19-2017 [facility] DZ W/EXACERBAT ION R000 TACHYCARDIA 01-18-2017 [facility] UNSPECIFIED MEDICAL G R0602 SHORTNESS 01-18-2017 PHYSICIANS OF BREATH IN EMERGENCY [facility] R0789 OTHER CHEST 01-18-2017 PHYSICIANS PAIN [...] Other ascites R19.7 Diarrhea, unspecified Z79.899 Other group home (current) drug therapy Z98.890 Other specified postprocedu [...] ME 59 06 07 21 6 00 OK Ac TH 74 -1 -0 .0 00 [...] 5 36 #9 CE 22 TA 5 NM NO PH EN 5- 32 5 BE [...] 017 K/mm3 ed monocyt 18:10 e count Hernando % = 5.6 % 1.7-9.3 complet 017 [...] SQUARE METERS Comment: If this patient is -Malagasy, then multiply the Comment: result by 1.210. [...] Procedure [place] [address] DOMINIK RAJ ABDOMEN & 7 MERY PELVIS SHORT & W/CONTRAS MORILLO P T MATERIAL GROUND A0425 [facility] CO EMS CO EMS PER STATUTE MILE AMBULANCE A0429 [facility] CO EMS CO EMS [facility] [address] [facility] 7 Surgery DAY MANAGEMEN T 30 MIN/< [place] [address] DOMINIK BURNHAM GUIDANCE 7 MERY NEEDLE SHORT & PLACEMENT MORILLO P IMG S&I PUNCTURE 02400 DOMINIK BURNHAM ASPIRATIO 7 MERY N ABSCESS SHORT & HEMATOMA MORILLO P BULLA/CYS T SBSQ 97539 [facility] 7 Surgery CARE/DAY 15 MINUTES INITIAL 72008 [facility] 7 Surgery CARE/DAY [address] [address] DOMINIKOSIRIS ARGUETA ABDOMEN & 7 MERY PELVIS SHORT & W/CONTRAS MORILLO P T MATERIAL RADEX 31230 DOMINIKOSIRIS ARGUETA ABDOMEN 1 7 MERY SHORT [...] EMS ALS EMERGENCY TRANSPORT LEVEL 1 ANESTHESI 78161 [facility] MCKEON JR A 7 NE HEALTH INTRAPERI MEDICAL TONEAL G LOWER ABD W/LAPS NOS LAPS ABD 27086 [facility] PRTM&OMEN 7 Surgery MARCUS DX W/WO SPEC BR/WA SPX INITIAL 45328 [facility] 7 Surgery CARE/DAY 50 MINUTES ECG 54761 PHYSICIAN TONA ROUTINE 7 S IN ECG EMERGENCY W/LEAST MEDI 12 LDS I&R ONLY RADIOLOGI 72111 DOMINIK LULA C 7 MERY EXAMINATI SHORT & ON CHEST [place] [address] DOMINIK ENRIQUEDEN ABDOMEN & 7 MERY PELVIS SHORT & W/CONTRAS MOIRLLO P T MATERIAL COLLECTIO 00160 [facility] DIPESH N VENOUS 7 MEDICAL BLOOD ASSOCIATE VENIPUNCT S URE BLOOD 17093 [facility] COUNT 7 MEDICAL MEDICAL COMPLETE ASSOCIATE ASSOCIATE AUTO&AUTO S S DIFRNTL WBC COMPREHEN 42959 [facility]UM[facility] SIVE 7 MEDICAL METABOLIC ASSOCIATE PANEL S LIPID 95326 [facility] PANEL 7 PENCIL INSPECTOR S 25 78584 [facility] HYDROXY 7 MEDICAL INCLUDES ASSOCIATE FRACTIONS S IF PERFORMED HEMOGLOBI 21707 [facility] N 7 MEDICAL GLYCOSYLA ASSOCIATE LILIYA A1C S ANES LWR 60819 [facility] LAY ABD 7 NE HEALTH VENTRAL & MEDICAL G INCISIONA L HERNIA REPAIR LAPS 37488 [facility] REPAIR 7 Surgery HERNIA EXCEPT INCAL/[place] [address] DOMINIK DA SILVAIER ABDOMEN & 7 MERY PELVIS SHORT & W/CONTRAS MORILLO P T MATERIAL INITIAL 55391 [facility] 7 PHYSICIAN CARE/[facility] 70 MINUTES GROUND A0425 [facility] 7 CO EMS CO EMS PER STATUTE MILE ECG 94458 [facility] MEDICAL W/LEAST G 12 LDS I&R ONLY 3D 71909 DOMINIK JACOBO RENDERING 7 MERY W/INTERP SHORT & & MORILLO P POSTPROCE SS SUPERVISI ON CT THORAX 52052 DOMINIK JACOBO 7 MERY W/CONTRAS SHORT & T MORILLO P MATERIAL AMB A0427 [facility] 7 CO EMS CO EMS ALS EMERGENCY TRANSPORT LEVEL 1 RADIOLOGI 72335 DOMINIK CARLOS C EXAM 7 MERY CHEST 2 SHORT & VIEWS MORILLO P FRONTAL&[place] [address] DOMINIK TREMAINE ABDOMEN & 7 MERY PELVIS SHORT & W/CONTRAS MORILLO P T MATERIAL RADEX ABD 69744 DOMINIK HAYCRAFT COMPL 7 MERY AQT ABD SHORT & W/S/E/D MORILLO P VIEWS 1 VIEW CH BLOOD 21227 [facility] 7 [place], [employer] AUTO&AUTO DIFRNTL WBC LIPID 35721 [facility] PANEL 7 [place], [employer] COMPREHEN 40277 [facility] S[facility] 7 [place], [employer] PANEL Encounters Encounter Start End Date Code Location Performer Type Date EMERGENCY 33623 PHYSICIAN UN 7 7 S IN DEPARTMEN EMERGENCY T VISIT MEDI MODERATE SEVERITY EMERGENCY 47813 PHYSICIAN JONN DEPT 7 7 S IN VISIT EMERGENCY HIGH MEDI SEVERITY& THREAT FUNJ EMERGENCY 02680 PHYSICIAN EILEEN DEPT 7 7 S IN VISIT EMERGENCY HIGH MEDI SEVERITY& THREAT FUNJ EMERGENCY 98373 PHYSICIAN TONA DEPT 7 7 S IN VISIT EMERGENCY HIGH MEDI SEVERITY& THREAT FUN PERIODIC 24882 [facility] PREVENTIV 7 7 MEDICAL E MED EST ASSOCIATE PATIENT S 40-64YRS EMERGENCY 84173 PHYSICIAN KEREN DEPT 7 7 S IN VISIT EMERGENCY HIGH MEDI SEVERITY& THREAT FUN EMERGENCY 83057 PHYSICIAN LEÓN 7 7 S IN DEPARTMEN EMERGENCY T VISIT MEDI HIGH/URGE NT SEVERITY
--- OUTSIDE RECORDS SUMMARY | 2017-05-02 17:40 | External Medical Summary Rpt | CCD ---
Demographics Preferred Language Welsh Marital Status Unknown Evangelical Affiliation Unknown Race Unknown Ethnic Group Unknown Author Author , DONYA NAQVI Address Unknown Phone Immunization No patient found.
--- OUTSIDE RECORDS SUMMARY | 2017-05-02 17:40 | External Medical Summary Rpt | CCD ---
Author Author , DONYA Organization DONYA Address Unknown Phone [email or web address] Care Team Providers Care Kids Club Attendant Name Role Phone NU JUDGE Unavailable Unavailable [...] Unavailable TREMAINE, TREMAINE Unavailable Unavailable [facility] Unavailable Unavailable [facility], [facility] ARGUETA, ARGUETA Unavailable Unavailable [facility] [employer] [facility] Unavailable Unavailable [facility] LAY, LAY Unavailable Unavailable LULA, LULA Unavailable [...] SHORT & Unavailable Unavailable MORILLO P, DOMINIK EMRY SHORT & OMRILLO P ULRF Surgery, ULRF Unavailable Unavailable Surgery [facility], Unavailable Unavailable [facility], [facility], [facility] ODALIS JACOBO Unavailable Unavailable Purpose Continuity of Care Document - 08-27-2016 through 2016 Problems Code Diagnosis DOS Provider Status R109 UNSPECIFIED 03-18-2017 PHYSICIANS ABDOMINAL IN PAIN EMERGENCY MEDI [id number] CUTANEOUS 03-15-2017 PHYSICIANS ABSCESS OF IN ABDOMINAL EMERGENCY WALL MEDI N281 CYST OF 03-15-2017 DOMINIK KIDNEY MERY ACQUIRED SHORT & MORILLO P N2889 OTHER 03-15-2017 DOMINIK SPECIFIED MERY DISORDERS SHORT & OF KIDNEY MORILLO P AND URETER T90009 CELLULITIS 2017 DOMINIK OF TRUNK MERY UNSPECIFIED SHORT & MORILLO P R110 NAUSEA 2017 [facility] Surgery R1110 VOMITING 2017 [facility] UNSPECIFIED Surgery [id number] DISRUPT 2017 [facility] INTERNAL Surgery OPERATION WOUND NEC INITIAL ENC 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 & UNSPECIFIED MORILLO P R1084 GENERALIZED 03-07-2017 PHYSICIANS ABDOMINAL IN PAIN EMERGENCY MEDI R112 NAUSEA WITH 03-07-2017 PHYSICIANS VOMITING IN UNSPECIFIED EMERGENCY MEDI R140 ABDOMINAL 03-07-2017 DOMINIK DISTENSION MERY GASEOUS SHORT & MORILLO P L7634 POSTPROC 03-04-2017 [facility] & SUBQ MEDICAL G TISS FLW OTH PROC [id number] POSTPROC 03-04-2017 [facility] SEROMA MSK Surgery STR FLW MUSCULOSKEL SYS PROC K429 UMBILICAL 03-03-2017 DOMINIK HERNIA MERY WITHOUT SHORT & OBSTRUCTION MORILLO P OR GANGRENE R079 CHEST PAIN 03-03-2017 DOMINIK UNSPECIFIED MERY SHORT & MORILLO P R1013 EPIGASTRIC 03-03-2017 PHYSICIANS PAIN IN EMERGENCY MEDI R197 DIARRHEA 03-03-2017 PHYSICIANS UNSPECIFIED IN EMERGENCY [facility] R9431 ABNORMAL 03-03-2017 [facility] IOGRAM MEDICAL G I10 ESSENTIAL 02-27-2017 [facility] PRIMARY MEDICAL HYPERTENSIO ASSOCIATES N Z0000 ENCOUNTER 02-27-2017 [facility] ADULT MEDICAL MED EXAM ASSOCIATES W/O ABNORMAL FIND Z720 TOBACCO USE 02-27-2017 [facility] MEDICAL ASSOCIATES Z7689 PERSONS 02-27-2017 [facility] ENCOUNTER MEDICAL HEALTH SRVC ASSOCIATES OTH CIRCUMSTANC ES K439 VENTRAL 02-24-2017 [facility] HERNIA Surgery WITHOUT OBSTRUCTION OR GANGRENE J441 CHRONIC 01-19-2017 [facility] DZ W/EXACERBAT ION R000 TACHYCARDIA 01-18-2017 [facility] UNSPECIFIED MEDICAL G R0602 SHORTNESS 01-18-2017 PHYSICIANS OF BREATH IN EMERGENCY [facility] R0789 OTHER CHEST 01-18-2017 PHYSICIANS PAIN IN EMERGENCY MEDI R05 COUGH 12-30-2016 DOMINIK MERY SHORT & MORILLO P R0600 DYSPNEA 12-30-2016 PHYSICIANS UNSPECIFIED IN EMERGENCY [facility] R1011 RIGHT UPPER 12-30-2016 PHYSICIANS QUADRANT [...] 5 36 #9 CE 22 TA 5 ME NO PH EN 5- 32 5 BE [...] Procedure [place] [address] DOMINIK RAJ ABDOMEN & 7 MERY PELVIS SHORT & W/CONTRAS MORILLO P T MATERIAL GROUND A0425 [facility] 7 CO EMS CO EMS PER STATUTE MILE AMBULANCE A0429 [facility] SERVICE 7 CO EMS CO EMS [facility] [address] [facility] 7 Surgery DAY MANAGEMEN T 30 MIN/< [place] [address] DOMINIK [facility] GUIDANCE 7 MERY NEEDLE SHORT & PLACEMENT MORILLO P IMG S&I PUNCTURE 64530 DOM[facility] ASPIRATIO 7 MERY N ABSCESS SHORT & HEMATOMA MORILLO P BULLA/CYS T SBSQ 49747 [facility] 7 Surgery CARE/DAY 15 MINUTES INITIAL 81343 [facility] 7 Surgery CARE/DAY [address] [place] [address] DOMINIK ARGUETA ABDOMEN & 7 MERY PELVIS SHORT & W/CONTRAS MORILLO P T MATERIAL RADEX 33695 DOMINIK ARGUETA ABDOMEN 1 7 MERY SHORT & ANTEROPOS MORILLO P TERIOR VIEW AMBULANCE A0429 [facility] [place] [facility] 7 CO EMS CO EMS S EMERGENCY TRANSPORT GROUND A0425 [facility] [facility] 7 CO EMS CO EMS PER STATUTE MILE GROUND A0425 [facility] [facility] 7 CO EMS CO EMS PER STATUTE MILE AMB A0427 [facility] 7 CO EMS CO EMS ALS EMERGENCY TRANSPORT LEVEL 1 ANESTHESI 81440 [facility] MCKEON JR A 7 NE HEALTH INTRAPERI MEDICAL TONEAL G LOWER ABD W/LAPS NOS LAPS ABD 92225 [facility] PRTM&OMEN 7 Surgery MARCUS DX W/WO SPEC BR/WA SPX INITIAL 20697 [facility] 7 Surgery CARE/DAY 50 MINUTES ECG 84786 PHYSICIAN TONA ROUTINE 7 S IN ECG EMERGENCY W/LEAST MEDI 12 LDS I&R ONLY RADIOLOGI 78808 DOMINIK LULA C 7 MERY EXAMINATI SHORT & ON CHEST [place] [address] DOMINIK ENRIQUEDEN ABDOMEN & 7 MERY PELVIS SHORT & W/CONTRAS MORILLO P T MATERIAL COLLECTIO 62848 [facility] DIPESH N VENOUS 7 MEDICAL BLOOD ASSOCIATE VENIPUNCT S URE BLOOD 08040 [facility] COUNT 7 MEDICAL MEDICAL COMPLETE ASSOCIATE ASSOCIATE AUTO&AUTO S S DIFRNTL WBC COMPREHEN 48858 [facility] BERUMEN SIVE 7 MEDICAL METABOLIC ASSOCIATE PANEL S LIPID 82652 [facility] BERUMEN PANEL 7 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 S 25 47721 [facility] BERUMEN HYDROXY 7 MEDICAL INCLUDES ASSOCIATE FRACTIONS S IF PERFORMED HEMOGLOBI 74164 [facility] BERUMEN N 7 MEDICAL GLYCOSYLA ASSOCIATE LILIYA A1C S [place] L[place] [address] [facility] LAY ABD 7 NE HEALTH VENTRAL & MEDICAL G INCISIONA L HERNIA REPAIR LAPS 59272 [facility] REPAIR 7 Surgery HERNIA EXCEPT INCAL/[place] [address] DOMINIK TREMAINE ABDOMEN & 7 MERY PELVIS SHORT & W/CONTRAS MORILLO P T MATERIAL INITIAL 92701 [facility] 7 PHYSICIAN CARE/DAY S, LLC 70 MINUTES GROUND A0425 [facility] [facility] 7 CO EMS CO EMS PER STATUTE MILE ECG 35991 [facility] STIDAM ROUTINE 7 NE HEALTH ECG MEDICAL W/LEAST G 12 LDS I&R ONLY 3D 09772 DOMINIK JACOBO RENDERING 7 MERY W/INTERP SHORT & & MORILLO P POSTPROCE SS SUPERVISI ON CT THORAX 53416 DOMINIK JACOBO 7 MERY W/CONTRAS SHORT & T MORILLO P MATERIAL AMB A0427 [facility] 7 CO EMS CO EMS ALS EMERGENCY TRANSPORT LEVEL 1 RADIOLOGI 43123 DOMINIK CARLOS C EXAM 7 MERY CHEST 2 SHORT & VIEWS MORILLO P FRONTAL&[place] [address] DOMINIK TREMAINE ABDOMEN & 7 MERY PELVIS SHORT & W/CONTRAS MORILLO P T MATERIAL RADEX ABD 57610 DOMINIK [facility] COMPL 7 MERY AQT ABD SHORT & W/S/E/D MORILLO P VIEWS 1 VIEW CH BLOOD 66492 [facility] COUNT 7 [place], COMPLETE [employer] INC[employer] AUTO&AUTO DIFRNTL WBC LIPID 37777 [facility] PANEL 7 [place], INC[employer] INC[employer] COMPREHEN 78886 [facility] SIVE 7 [place], [employer] PANEL Encounters Encounter Start End Date Code Location Performer Type Date EMERGENCY 49036 PHYSICIAN NU 7 7 S IN DEPARTMEN EMERGENCY T VISIT MEDI MODERATE SEVERITY EMERGENCY 94441 PHYSICIAN JONN DEPT 7 7 S IN VISIT EMERGENCY HIGH MEDI SEVERITY& THREAT FUN EMERGENCY 01797 PHYSICIAN EILEEN DEPT 7 7 S IN VISIT EMERGENCY HIGH MEDI SEVERITY& THREAT FUNJ EMERGENCY 32604 PHYSICIAN TONA DEPT 7 7 S IN VISIT EMERGENCY HIGH MEDI SEVERITY& THREAT FUN PERIODIC 76350 [facility] PREVENTIV 7 7 MEDICAL E MED EST ASSOCIATE PATIENT S 40-64YRS EMERGENCY 42285 PHYSICIAN KEREN DEPT 7 7 S IN VISIT EMERGENCY HIGH MEDI SEVERITY& THREAT FUN EMERGENCY 08703 PHYSICIAN LEÓN 7 7 S IN DEPARTMEN EMERGENCY T VISIT MEDI HIGH/URGE NT SEVERITY
--- OUTSIDE RECORDS SUMMARY | 2017-05-02 17:40 | External Medical Summary Rpt | CCD ---
Demographics Preferred Language Italian Marital Status Unknown Protestant Affiliation Unknown Race Unknown Ethnic Group Unknown Author Author , DONYA NAQVI Address Unknown Phone Immunization No patient found.
--- OUTSIDE RECORDS SUMMARY | 2017-05-02 17:40 | External Medical Summary Rpt | CCD ---
Author Author , DONYA Organization DONYA Address Unknown Phone [email or web address] Care Team Providers Care Loin Puller Name Role Phone NU JUDGE Unavailable Unavailable [...] Unavailable TREMAINE, TREMAINE Unavailable Unavailable [facility] Unavailable Unavailable [facility], [facility] ARGUETA, ARGUETA Unavailable Unavailable [facility] [employer] Unavailable [facility]available [facility] LAY, LAY Unavailable Unavailable LULA, LULA Unavailable [...] P ULRF Surgery, ULRF Unavailable Unavailable Surgery [facility], Unavailable Unavailable [facility], [facility], [facility] ODALIS JACOBO Unavailable Unavailable Purpose Continuity of Care Document - 08-27-2016 through 2016 Problems Code Diagnosis DOS Provider Status R109 UNSPECIFIED 03-18-2017 PHYSICIANS ABDOMINAL IN PAIN EMERGENCY MEDI Q02623 CUTANEOUS 03-15-2017 PHYSICIANS ABSCESS OF IN ABDOMINAL EMERGENCY WALL MEDI N281 CYST OF 03-15-2017 [facility] KIDNEY MERY ACQUIRED SHORT & MORILLO P N2889 OTHER 03-15-2017 DOMINIK SPECIFIED MERY DISORDERS SHORT & OF KIDNEY MORILLO P AND URETER R75967 CELLULITIS 2017 DOMINIK OF TRUNK MERY UNSPECIFIED SHORT & MORILLO P R110 NAUSEA 2017 [facility] Surgery R1110 VOMITING 2017 [facility] UNSPECIFIED Surgery [id number] DISRUPT 2017 [facility] INTERNAL Surgery OPERATION WOUND NEC INITIAL ENC 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 & UNSPECIFIED MORILLO P R1084 GENERALIZED 03-07-2017 PHYSICIANS ABDOMINAL IN PAIN EMERGENCY MEDI R112 NAUSEA WITH 03-07-2017 PHYSICIANS VOMITING IN UNSPECIFIED EMERGENCY MEDI R140 ABDOMINAL 03-07-2017 DOMINIK DISTENSION MERY GASEOUS SHORT & MORILLO P L7634 POSTPROC 03-04-2017 [facility] SKIN HEALTH & SUBQ MEDICAL G TISS FLW OTH PROC G12778 POSTPROC 03-04-2017 [facility] SEROMA MSK Surgery STR FLW MUSCULOSKEL SYS PROC K429 UMBILICAL 03-03-2017 DOMINIK HERNIA MERY WITHOUT SHORT & OBSTRUCTION MORILLO P OR GANGRENE R079 CHEST PAIN 03-03-2017 DOMINIK UNSPECIFIED MERY SHORT & MORILLO P R1013 EPIGASTRIC 03-03-2017 PHYSICIANS PAIN IN EMERGENCY MEDI R197 DIARRHEA 03-03-2017 PHYSICIANS UNSPECIFIED IN EMERGENCY [facility] R9431 ABNORMAL 03-03-2017 [facility] IOGRAM MEDICAL G I10 ESSENTIAL 02-27-2017 [facility] PRIMARY MEDICAL HYPERTENSIO ASSOCIATES N Z0000 ENCOUNTER 02-27-2017 [facility] ADULT MEDICAL MED EXAM ASSOCIATES W/O ABNORMAL FIND Z720 TOBACCO USE 02-27-2017 [facility] MEDICAL ASSOCIATES Z7689 PERSONS 02-27-2017 [facility] ENCOUNTER MEDICAL HEALTH [facility] OTH CIRCUMSTANC ES K439 VENTRAL 02-24-2017 [facility] HERNIA Surgery WITHOUT OBSTRUCTION OR GANGRENE J441 CHRONIC 01-19-2017 [facility] DZ W/EXACERBAT ION R000 TACHYCARDIA 01-18-2017 [facility] UNSPECIFIED MEDICAL G R0602 SHORTNESS 01-18-2017 PHYSICIANS OF BREATH IN EMERGENCY [facility] R0789 OTHER CHEST 01-18-2017 PHYSICIANS PAIN IN EMERGENCY MEDI R05 COUGH 12-30-2016 DOMINIK MERY SHORT & MORILLO P R0600 DYSPNEA 12-30-2016 PHYSICIANS UNSPECIFIED IN EMERGENCY [facility] R1011 RIGHT UPPER 12-30-2016 PHYSICIANS [...] 50 1- 8- 00 01 RE ve HI 26 20 20 40 EN IL 40 [...] 84 8- 4- 00 06 ER ve HI 77 20 20 46 [place] 50 17 17 12 PH -H [address] MA Z CY 20 L -2 5 -7 MG 58 TA B ME 59 06 07 21 6 00 WA Ac TH 74 -1 -0 .0 00 LG ti YL 60 4- 7- 00 01 RE ve HI 00 20 20 38 EN ED 10 [...] 5 36 #9 CE 22 TA 5 IL NO PH EN 5- 32 5 BE 00 06 06 30 30 00 KR Ac NA 37 -0 -3 .0 00 OG ti ZE 84 3- 0- 00 06 ER ve HI 77 20 20 46 [place] 50 17 17 12 PH -H [address] MA Z CY 20 L -2 5 -7 MG 58 TA B BE 00 04 05 30 30 00 KR Ac NA 37 -2 -2 .0 00 OG ti ZE 84 9- 6- 00 06 ER ve HI 77 20 20 46 [place] 50 17 17 12 PH -H [address] MA Z CY 20 L -2 5 -7 MG 58 TA B BE 00 04 05 30 30 00 KR Ac NA 37 -0 -0 .0 00 OG ti ZE 84 6- 5- 00 06 ER ve HI 77 20 20 46 IL 50 17 [...] ER ve LO 13 20 20 44 HI 71 17 17 70 PH AM 0 23 AR MA 20 CY L MG -7 TA 58 BL ET BE 00 02 03 30 30 00 KR Ac NA 37 -1 -1 .0 00 OG ti ZE 84 3- 0- 00 06 ER ve HI 77 20 20 44 [place] 50 17 [...] Procedure DOS [place] [address] DOMINIK RAJ ABDOMEN & 7 MERY PELVIS SHORT & W/CONTRAS MORILLO P T MATERIAL GROUND A0425 [facility] [place] [facility] 7 CO EMS CO EMS PER STATUTE MILE AMBULANCE A0429 [facility] SERVICE 7 CO EMS CO EMS [facility] [address] [facility] 7 Surgery DAY MANAGEMEN T 30 MIN/< [place] [address] DOMINIK [facility] GUIDANCE 7 MERY NEEDLE SHORT & PLACEMENT MORILLO P IMG S&I PUNCTURE 72621 DOM[facility]IK [facility] ASPIRATIO 7 MERY N ABSCESS SHORT & HEMATOMA MORILLO P BULLA/CYS T SBSQ 88477 [facility] 7 Surgery CARE/DAY 15 MINUTES INITIAL 78343 [facility] 7 Surgery CARE/DAY [address] [place] [address] DOMINIK ARGUETA ABDOMEN & 7 MERY PELVIS SHORT & W/CONTRAS MORILLO P T MATERIAL RADEX 72155 DOMINIK ARGUETA ABDOMEN 1 7 MERY SHORT & ANTEROPOS MORILLO P TERIOR VIEW AMBULANCE A0429 [facility] 7 CO EMS CO EMS S EMERGENCY TRANSPORT GROUND A0425 [facility] [facility] 7 CO EMS CO EMS PER STATUTE MILE GROUND A0425 [facility] [facility] 7 CO EMS CO EMS PER STATUTE MILE AMB A0427 [facility] 7 CO EMS CO EMS ALS EMERGENCY TRANSPORT LEVEL 1 ANESTHESI 97095 [facility] MCKEON JR A 7 NE HEALTH INTRAPERI MEDICAL TONEAL G LOWER ABD W/LAPS NOS LAPS ABD 35822 [facility] PRTM&OMEN 7 Surgery MARCUS DX W/WO SPEC BR/WA SPX INITIAL 66171 [facility] 7 Surgery CARE/DAY 50 MINUTES ECG 66790 PHYSICIAN TONA ROUTINE 7 S IN ECG EMERGENCY W/LEAST MEDI 12 LDS I&R ONLY RADIOLOGI 46440 DOMINIK LULA C 7 MERY EXAMINATI SHORT & ON CHEST [place] [address] DOMINIK ENRIQUEDEN ABDOMEN & 7 MERY PELVIS SHORT & W/CONTRAS MORILLO P T MATERIAL COLLECTIO 16702 [facility] DIPESH N VENOUS 7 MEDICAL BLOOD ASSOCIATE VENIPUNCT S URE BLOOD 97473 [facility] COUNT 7 MEDICAL MEDICAL COMPLETE ASSOCIATE ASSOCIATE AUTO&AUTO S S DIFRNTL WBC COMPREHEN 24208 [facility] BERUMEN SIVE 7 MEDICAL METABOLIC ASSOCIATE PANEL S LIPID 99223 [facility] B[facility] PANEL 7 PROCUREMENT SPECIALIST S 25 02170 [facility] B[facility] HYDROXY 7 MEDICAL INCLUDES ASSOCIATE FRACTIONS S IF PERFORMED HEMOGLOBI 91387 [facility] BERUMEN N 7 MEDICAL GLYCOSYLA ASSOCIATE LILIYA A1C S ANES LWR 70801 [facility] LAY ABD 7 NE HEALTH VENTRAL & MEDICAL G INCISIONA L HERNIA REPAIR LAPS 58142 [facility] REPAIR 7 Surgery HERNIA EXCEPT INCAL/[place] [address] DOMINIK TREMAINE ABDOMEN & 7 MERY PELVIS SHORT & W/CONTRAS MORILLO P T MATERIAL INITIAL 63248 [facility] 7 PHYSICIAN CARE/DAY S, LLC 70 MINUTES GROUND A0425 [facility] 7 CO EMS CO EMS PER STATUTE MILE ECG 83189 [facility] STID[facility] ROUTINE 7 NE HEALTH ECG MEDICAL W/LEAST G 12 LDS I&R ONLY 3D 10091 DOMINIK JACOBO RENDERING 7 MERY W/INTERP SHORT & & MORILLO P POSTPROCE SS SUPERVISI ON CT THORAX 98279 DOMINIK JACOBO 7 MERY W/CONTRAS SHORT & T MORILLO P MATERIAL AMB A0427 [facility] 7 CO EMS CO EMS ALS EMERGENCY TRANSPORT LEVEL 1 RADIOLOGI 45645 DOMINIK CARLOS C EXAM 7 MERY CHEST 2 SHORT & VIEWS MORILLO P FRONTAL&[place] [address] DOMINIK TREMAINE ABDOMEN & 7 MERY PELVIS SHORT & W/CONTRAS MORILLO P T MATERIAL RADEX ABD 47138 DOMINIK [facility] 7 MERY AQT ABD SHORT & W/S/E/D MORILLO P VIEWS 1 VIEW CH BLOOD 94103 [facility] COUNT 7 [place], [employer] INC[employer] AUTO&AUTO DIFRNTL WBC LIPID 45777 [facility] PANEL 7 [place], INC[employer] INC. COMPREHEN 45087 [facility] SIVE 7 [place], [employer] PANEL Encounters Encounter Start End Date Code Location Performer Type Date EMERGENCY 65140 PHYSICIAN NU 7 7 S IN DEPARTMEN EMERGENCY T VISIT MEDI MODERATE SEVERITY EMERGENCY 55696 PHYSICIAN JONN DEPT 7 7 S IN VISIT EMERGENCY HIGH MEDI SEVERITY& THREAT FUN EMERGENCY 35157 PHYSICIAN EILEEN DEPT 7 7 S IN VISIT EMERGENCY HIGH MEDI SEVERITY& THREAT FUNJ EMERGENCY 26541 PHYSICIAN TONA DEPT 7 7 S IN VISIT EMERGENCY HIGH MEDI SEVERITY& THREAT FUN PERIODIC 64618 [facility] PREVENTIV 7 7 MEDICAL E MED EST ASSOCIATE PATIENT S 40-64YRS EMERGENCY 81232 PHYSICIAN KEREN DEPT 7 7 S IN VISIT EMERGENCY HIGH MEDI SEVERITY& THREAT FUN EMERGENCY 14470 PHYSICIAN LEÓN 7 7 S IN DEPARTMEN EMERGENCY T VISIT MEDI HIGH/URGE NT SEVERITY
== END 2017-05-01 12:00 | disposition home or self-care (01) ==
LOC: ER 13:22 → 2ND 15:28
PROVIDERS: Emergency Medicine
DX: R07.9 Chest pain, unspecified (principal); E78.5 Hyperlipidemia, unspecified; I10 Essential (primary) hypertension; F17.210 Nicotine dependence, cigarettes, uncomplicated; T46.5X6A Underdosing of other antihypertensive drugs, initial encounter; Z91.128 Patient's intentional underdosing of medication regimen for other reason; Z96.651 Presence of right artificial knee joint
CPT/HCPCS: A9502; G0378; J2405; J2785